=== PATIENT | male | born 1940 | race Caucasian/White ===

== ENCOUNTER 2017-02-12 20:05 | Inpatient (IN) | payer MEDICARE, BC ==
[~2017-02-12] VITALS: Ht 167.6 cm; Wt 94.0 kg
[~2017-02-12 20:05] MED LIST: AMBI10TA PO; CLON.1T TOP; CYCL-36 PO; DICL-86 PO; LISI10TA PO; OYST500T77 PO; PAXI20TA26 PO; PRAV80TA PO; TAB-TAB PO; TERA5CAP34 PO; VERA240CR PO; VITA400C70 PO; VITA500T10 PO; [UNRECOGNIZED DRUG - OTHER] PO
[2017-02-12 20:07] VITALS: BP 197/105; PULSE 115; RESP 16; TEMP 98.7; O2SAT 92
[2017-02-12 20:43] LABS: AUTOMATED NEUTROPHIL # 11.1 TH/MM3 (1.8-7.7); BASOPHIL # 0.1 TH/MM3 (0-0.2); BASOPHIL % 0.5 % (0.0-2.0); HEMATOCRIT 38.6 % (39.0-51.0); HEMO FLAGS DIFF FINAL; LYMPH % 4.5 % (9.0-44.0); LYMPHOCYTE # 0.5 TH/MM3 (1.0-4.8); MEAN CELL VOLUME 95.4 FL (80.0-100.0); MEAN CORPUSCULAR HEMOGLOBIN 32.5 PG (27.0-34.0); MONO % 4.2 % (0.0-8.0); NEUT % 90.8 % (16.0-70.0); PLATELET COUNT 243 TH/MM3 (150-450); RED BLOOD COUNT 4.04 MIL/MM3 (4.50-5.90); RED CELL DISTRIBUTION WIDTH 13.2 % (11.6-17.2); WHITE BLOOD COUNT 12.2 TH/MM3 (4.0-11.0)
[2017-02-12 20:45] LABS: BLOOD, URINE SMALL (NEG); COMMENT (UR) CULT NOT INDICATED; CULTURE IF INDICATED CULT NOT INDICATED; GLUCOSE,URINE 150 mg/dL (NEG); KETONE, URINE 80 mg/dL (NEG); MUCUS URINE FEW /lpf (OCC); NITRITE,URINE NEG (NEG); PH, URINE 6.5 (5.0-8.5); SQUAMOUS EPITHELIAL CELL URINE <1 /hpf (0-5); URINE COLOR YELLOW (YELLW/STRAW)
--- NOTE | 2017-02-12 21:03 | PD ---
HPI Chief Complaint: Altered Mental Status Time Seen by Provider: 20:52 Travel History International Travel<30 days: No Contact w/Intl Traveler<30days: No Traveled to known affect area: No History of Present Illness HPI 76-year-old male presents to the emergency department with nausea and vomiting since last night. Patient's family states that they have been ill with flulike symptoms and think that he has contracted the flu as well. Family states that he has altered mental status and but has somewhat waxed & waned. Patient has chronic back pain and mild urinary incontinence however, patient and family state that the incontinence has been increased recently. Patient denies dysuria. Patient denies fever, chills, chest pain, cough, shortness of breath, abdominal pain. Patient and family deny any recent falls. Family states that he has not been able take his medication today because of his nausea and vomiting. State compliance with his medications. PFSH Social History Tobacco Use: No Allergies-Medications (Allergen,Severity, Reaction): Coded Allergies: No Known Allergies (Verified Allergy, Mild, 02/12/17) Reported Meds & Prescriptions Reported Meds & Active Scripts Active Reported Ranitidine (Ranitidine HCl) 150 Mg Tab 150 Mg PO DAILY Ambien (Zolpidem Tartrate) 10 Mg Tab 10 Mg PO HS PRN Atenolol 25 Mg Tab 25 Mg PO DAILY Lisinopril-Hctz 20-12.5 Mg Tab 1 Tab PO BID Tamsulosin (Tamsulosin HCl) 0.4 Mg Cap 0.4 Mg PO HS Shepherd (Hydrocodone-Acetaminophen) 7.5-325 mg Tab 1 Tab PO BID PRN Verapamil (Verapamil HCl) 120 Mg Tab 120 Mg PO BID Gabapentin 600 Mg Tab 600 Mg PO TID Pravastatin 40 Mg Tab 40 Mg PO DAILY Diclofenac Sodium DR (Diclofenac Sodium) 75 Mg Tabdr 75 Mg PO BID Flexeril (Cyclobenzaprine HCl) 10 Mg Tab 10 Mg PO DAILY Review of Systems Except as stated in HPI: all other systems reviewed are Neg Physical Exam Narrative GENERAL: Well-developed well-nourished in no apparent distress, shaking SKIN: Focused skin assessment warm/dry. HEAD: Atraumatic. Normocephalic. EYES: Pupils equal and round. No scleral icterus. No injection or drainage. ENT: No nasal bleeding or discharge. Mucous membranes pink and moist. NECK: Trachea midline. No JVD. CARDIOVASCULAR: Regular rate and rhythm. No murmur appreciated. RESPIRATORY: No accessory muscle use. Clear to auscultation. Breath sounds equal bilaterally. GASTROINTESTINAL: Abdomen soft, non-tender, nondistended. Hepatic and splenic margins not palpable. MUSCULOSKELETAL: No obvious deformities. No clubbing. No cyanosis. No edema. Homans sign negative bilaterally NEUROLOGICAL: Awake and alert. No obvious cranial nerve deficits. Motor grossly within normal limits. Normal speech. PSYCHIATRIC: Appropriate mood and affect; insight and judgment normal. Data Data Last Documented VS Vital Signs Date Time Temp Pulse Resp B/P (MAP) Pulse Ox O2 Delivery O2 Flow Rate FiO2 02/12/17 21:36 99 26 181/90 (120) 94 Nasal Cannula 2.00 02/12/17 20:07 98.7 Orders Orders Complete Blood Count With Diff (02/12/17 20:17) Urinalysis - C+S If Indicated (02/12/17 20:17) Sodium Chlorid 0.9% 500 Ml Inj (Ns 500 M (02/12/17 21:15) Ct Brain W/O Iv Contrast(Rout) (02/12/17 ) Chest, Single Ap (02/12/17 ) Potassium Chloride (Kcl) (02/13/17 09:00) Electrocardiogram (02/12/17 ) Drug Screen, Random Urine (02/12/17 21:28) Beta Hydroxybutyrate (Acetone) (02/12/17 21:28) Verapamil (Isoptin) (02/12/17 21:45) Lisinopril (Prinivil) (02/12/17 21:45) Comprehensive Metabolic Panel (02/12/17 20:34) Haloperidol Inj (Haldol Inj) (02/12/17 23:00) Risperidone (Risperdal) (02/12/17 23:15) Admit Order (Ed Use Only) (02/12/17 23:08) Labs Laboratory Tests Test 02/12/17 20:30 02/12/17 20:34 Urine Color YELLOW Urine Turbidity CLEAR Urine pH 6.5 Urine Specific [place] 1.017 Urine Protein TRACE mg/dL Urine Glucose (UA) 150 mg/dL Urine Ketones 80 mg/dL Urine Occult Blood SMALL Urine Nitrite NEG Urine Bilirubin NEG Urine Urobilinogen LESS THAN 2.0 MG/DL Urine Leukocyte Esterase NEG Urine RBC 5 /hpf Urine WBC 1 /hpf Urine Squamous Epithelial Cells <1 /hpf Urine Mucus FEW /lpf Microscopic Urinalysis Comment CULT NOT INDICATED Urine Opiates Screen NEG Urine Barbiturates Screen NEG Urine Amphetamines Screen NEG Urine Benzodiazepines Screen NEG Urine Cocaine Screen NEG Urine Cannabinoids Screen NEG White Blood Count 12.2 TH/MM3 Red Blood Count 4.04 MIL/MM3 Hemoglobin 13.1 GM/DL Hematocrit 38.6 % Mean Corpuscular Volume 95.4 FL Mean Corpuscular Hemoglobin 32.5 PG Mean Corpuscular Hemoglobin Concent 34.0 % Red Cell Distribution Width 13.2 % Platelet Count 243 TH/MM3 Mean Platelet Volume 8.1 FL Neutrophils (%) (Auto) 90.8 % Lymphocytes (%) (Auto) 4.5 % Monocytes (%) (Auto) 4.2 % Eosinophils (%) (Auto) 0.0 % Basophils (%) (Auto) 0.5 % Neutrophils # (Auto) 11.1 TH/MM3 Lymphocytes # (Auto) 0.5 TH/MM3 Monocytes # (Auto) 0.5 TH/MM3 Eosinophils # (Auto) 0.0 TH/MM3 Basophils # (Auto) 0.1 TH/MM3 CBC Comment DIFF FINAL Differential Comment Blood Urea Nitrogen 15 MG/DL Creatinine 1.24 MG/DL Random Glucose 179 MG/DL Total Protein 7.8 GM/DL Albumin 4.2 GM/DL Calcium Level 9.0 MG/DL Alkaline Phosphatase 70 U/L Aspartate Amino Transf (AST/SGOT) 20 U/L Alanine Aminotransferase (ALT/SGPT) 25 U/L Total Bilirubin 1.0 MG/DL Sodium Level 136 MEQ/L Potassium Level 2.9 MEQ/L Chloride Level 99 MEQ/L Carbon Dioxide Level 27.4 MEQ/L Anion Gap 10 MEQ/L Estimat Glomerular Filtration Rate 57 ML/MIN B-Hydroxybutyrate 0.76 MMOL/L [facility] Medical Decision Making Medical Screen Exam Complete: Yes Emergency Medical Condition: Yes Differential Diagnosis Urinary tract infection versus altered mental status versus Narrative Course 76-year-old male presents to the emergency department with nausea and vomiting since last night. Patient's family states that they have been ill with flulike symptoms and think that he has contracted the flu as well. Family states that he has altered mental status and but has somewhat waxed & waned. Patient has chronic back pain and mild urinary incontinence however, patient and family state that the incontinence has been increased recently. Patient denies dysuria. Patient denies fever, chills, chest pain, cough, shortness of breath, abdominal pain. Patient and family deny any recent falls. Family states that he has not been able take his medication today because of his nausea and vomiting. State compliance with his medications. States he has been taking opiate pain medication for approximately 1 year but does not take them regularly. Vital signs- tachycardia with high blood pressure. Note that patient had not taken his BP medication today. Administered verapamil 120 and lisinopril 20. Laboratory Tests Test 02/12/17 20:30 02/12/17 20:34 Urine Color YELLOW Urine Turbidity CLEAR Urine pH 6.5 Urine Specific [place] 1.017 Urine Protein TRACE mg/dL Urine Glucose (UA) 150 mg/dL Urine Ketones 80 mg/dL Urine Occult Blood SMALL Urine Nitrite NEG Urine Bilirubin NEG Urine Urobilinogen LESS THAN 2.0 MG/DL Urine Leukocyte Esterase NEG Urine RBC 5 /hpf Urine WBC 1 /hpf Urine Squamous Epithelial Cells <1 /hpf Urine Mucus FEW /lpf Microscopic Urinalysis Comment CULT NOT INDICATED Urine Opiates Screen NEG Urine Barbiturates Screen NEG Urine Amphetamines Screen NEG Urine Benzodiazepines Screen NEG Urine Cocaine Screen NEG Urine Cannabinoids Screen NEG White Blood Count 12.2 TH/MM3 Red Blood Count 4.04 MIL/MM3 Hemoglobin 13.1 GM/DL Hematocrit 38.6 % Mean Corpuscular Volume 95.4 FL Mean Corpuscular Hemoglobin 32.5 PG Mean Corpuscular Hemoglobin Concent 34.0 % Red Cell Distribution Width 13.2 % Platelet Count 243 TH/MM3 Mean Platelet Volume 8.1 FL Neutrophils (%) (Auto) 90.8 % Lymphocytes (%) (Auto) 4.5 % Monocytes (%) (Auto) 4.2 % Eosinophils (%) (Auto) 0.0 % Basophils (%) (Auto) 0.5 % Neutrophils # (Auto) 11.1 TH/MM3 Lymphocytes # (Auto) 0.5 TH/MM3 Monocytes # (Auto) 0.5 TH/MM3 Eosinophils # (Auto) 0.0 TH/MM3 Basophils # (Auto) 0.1 TH/MM3 CBC Comment DIFF FINAL Differential Comment Blood Urea Nitrogen 15 MG/DL Creatinine 1.24 MG/DL Random Glucose 179 MG/DL Total Protein 7.8 GM/DL Albumin 4.2 GM/DL Calcium Level 9.0 MG/DL Alkaline Phosphatase 70 U/L Aspartate Amino Transf (AST/SGOT) 20 U/L Alanine Aminotransferase (ALT/SGPT) 25 U/L Total Bilirubin 1.0 MG/DL Sodium Level 136 MEQ/L Potassium Level 2.9 MEQ/L Chloride Level 99 MEQ/L Carbon Dioxide Level 27.4 MEQ/L Anion Gap 10 MEQ/L Estimat Glomerular Filtration Rate 57 ML/MIN B-Hydroxybutyrate 0.76 MMOL/L Last Impressions Head CT 02/12/17 0000 Signed Impressions: Service Date/Time: Sunday, February 12, 2017 21:53 - CONCLUSION: 1. No acute intracranial abnormalities. Ricky Morrow MD Chest X-Ray 02/12/17 0000 Signed Impressions: Service Date/Time: Sunday, February 12, 2017 21:23 - CONCLUSION: No acute disease. Ricky Morrow MD Hypokalemia - 2.9 Patient given 40 mg KCl. Fluid challenge administered. Patient will be admitted for obs for leukocytosis, hypokalemia, AMS. Thanks to Dr. Watters for accepting this patient. Diagnosis Primary Impression: Hypokalemia Additional Impression: Altered mental status Qualified Codes: R41.0 - Disorientation, unspecified Admitting Information Admitting Physician Requests: Observation Scripts Paroxetine (Paxil) 10 Mg Tab 5 MG PO DAILY for Depression Control, #30 TAB 0 Refills Prov: Lynnette Ibarra PA-C 02/13/17 Condition: Stable Miesha Hirsch Feb 12, 2017 21:03
[2017-02-12 21:10] LABS: ANION GAP 10 MEQ/L (5-15); BICARBONATE 27.4 MEQ/L (21.0-32.0); BLOOD UREA NITROGEN 15 MG/DL (7-18); CHLORIDE 99 MEQ/L (98-107); GLOMERULAR FILTRATION RATE 57 ML/MIN (>89); SODIUM (NA) 136 MEQ/L (136-145)
[2017-02-12 21:14] LABS: POTASSIUM 2.9 MEQ/L (3.5-5.1)
[2017-02-12] MEDS ORDERED: SODIUM CHLORID 0.9% 500 ML INJ 500 ML IV ONE (21:15)
[2017-02-12] MEDS ORDERED: GABA600T PO (21:24)
[2017-02-12] MEDS ORDERED: VERA120T3 PO (21:24)
[2017-02-12] MEDS ORDERED: PRAV40TA2 PO (21:24)
[2017-02-12] MEDS ORDERED: ATEN25TA PO (21:24)
[2017-02-12] MEDS ORDERED: AMBI10TA PO (21:24)
[2017-02-12] MEDS ORDERED: DICL75TA PO (21:24)
[2017-02-12] MEDS ORDERED: TAMS0.4C4 PO (21:24)
[2017-02-12] MEDS ORDERED: HYDR-3288 PO (21:24)
[2017-02-12] MEDS ORDERED: LISI20TA PO (21:24)
[2017-02-12] MEDS ORDERED: CYCL10TA PO (21:24)
[2017-02-12] MEDS ORDERED: RANI150T PO (21:24)
[2017-02-12 21:36] VITALS: BP 181/90; PULSE 99; RESP 26; O2SAT 94
[2017-02-12] MEDS ORDERED: LISINOPRIL 20 MG TAB PO ONE (21:45)
[2017-02-12] MEDS ORDERED: VERAPAMIL HCL 120 MG TAB PO ONE (21:45)
[2017-02-12 21:53] LABS: ALKALINE PHOSPHATASE 70 U/L (45-117); ALT (GPT) 25 U/L (12-78); AST (GOT) 20 U/L (15-37)
--- NOTE | 2017-02-12 22:03 | RADRPT ---
EXAM DATE/TIME: 02/12/2017 21:23 [facility] COMPARISON: No previous studies available for comparison. INDICATIONS : Vomiting for 2 weeks. MEDICAL HISTORY : Chronic obstructive pulmonary disease. SURGICAL HISTORY : None. ENCOUNTER: Initial ACUITY: 2 weeks PAIN SCORE: 0/10 LOCATION: Bilateral chest FINDINGS: A single view of the chest demonstrates the lungs to be symmetrically aerated without evidence of mas s, infiltrate or effusion. The cardiomediastinal contours are unremarkable. Osseous structures are intact. CONCLUSION: No acute disease. Ricky Morrow MD on February 12, 2017 at 22:00 Board Certified Radiologist. This report was verified electronically.
--- NOTE | 2017-02-12 22:20 | RADRPT ---
EXAM DATE/TIME: 02/12/2017 21:53 [facility] COMPARISON: No previous studies available for comparison. INDICATIONS : Altered mental status. RADIATION DOSE: 34.35 CTDIvol (mGy) MEDICAL HISTORY : Deep venous thrombosis. Hypertension. Diabetes mellitus type 2.Pulmonary embolus SURGICAL HISTORY : None. ENCOUNTER: Initial ACUITY: 1 day PAIN SCALE: 0/10 LOCATION: cranial TECHNIQUE: Multiple contiguous axial images were obtained of the head. Using automated exposure control and adj ustment of the mA and/or kV according to patient size, radiation dose was kept as low as reasonably a chievable to obtain optimal diagnostic quality images. DICOM format image data is available electro nically for review and comparison. FINDINGS: CEREBRUM: The ventricles are normal for age. No evidence of midline shift, mass lesion, hemorrhage or acute in farction. No extra-axial fluid collections are seen. POSTERIOR FOSSA: The cerebellum and brainstem are intact. The 4th ventricle is midline. The cerebellopontine angle i s unremarkable. EXTRACRANIAL: The visualized portion of the orbits is intact. SKULL: The calvaria is intact. No evidence of skull fracture. CONCLUSION: 1. No acute intracranial abnormalities. Ricky Morrow MD on February 12, 2017 at 22:16 Board Certified Radiologist. This report was verified electronically.
[2017-02-12] MEDS ORDERED: HALOPERIDOL LACTATE 5 MG/ML AMP IM ONE (23:00)
[2017-02-12] MEDS ORDERED: GADODIAMIDE PF 287 MG/ML 20 ML VIAL (for RAD MRI) IVCONTRAST ONE (23:12)
--- NOTE | 2017-02-12 23:14 | HHI.HP ---
HPI Service [facility] Primary Care Physician Davidson Hughes, DO Admission Diagnosis AMD, leukocytosis, hypokalemia Diagnoses: (1) Encephalopathy Diagnosis: Principal (2) HTN (hypertension) Diagnosis: Principal (3) Dehydration Diagnosis: Principal (4) Leukocytosis Diagnosis: Principal (5) Hyperglycemia Diagnosis: Principal (6) Hypokalemia Diagnosis: Principal Travel History International Travel<30 Days: No Contact w/Intl Traveler <30 Da: No Traveled to Known Affected Are: No History of Present Illness This is a 76-year-old male with PMH of HTN, Chronic Back pain, Depression, h/o DVT s/p IVC and Diet Controlled DM who was brought to the ER by Daughter secondary to AMS. Per Daughter, pt lives in an [place] on their property and is highly functional at baseline-walks, talks, drives. Today, pt had few episodes of nausea/vomiting and mild headache, but no complaints of abdominal pain, Daughter had flu-like symptoms and thought pt was having same, however mental status declined throughout the day. Also states BP has been difficult to control and has required several different BP regimens, however home BP has been 130's systolic until today when BP noted to be elevated. On arrival, BP 197/105, HR 115. WBC 12.2. K+ 2.9, s/p replacement in ER. GFR 57. UA with no UTI. Beta hydroxy 0.76. Urine Drug Screen negative. CT Head with no acute intracranial abnormalities. CXR with no acute finding. While in ER, pt w/ episode of significant agitation requiring Haldol and Risperidone, currently calm. Review of Systems Except as stated in HPI: all other systems reviewed are Neg ROS: Unable to obtain secondary to AMS. Past Family Social History Past Medical History PMH: HTN, Chronic Back pain, Depression, h/o DVT s/p IVC and Diet Controlled DM Past Surgical History PAST SURGICAL HISTORY: Left Knee Replacement, IVC Filter Allergies: Coded Allergies: No Known Allergies (Verified Allergy, Mild, 02/12/17) Family History PAST FAMILY HISTORY: Reviewed. No h/o DM or CAD Social History PAST SOCIAL HISTORY: Occasional alcohol. Negative for tobacco or drugs. Physical Exam Vital Signs Vital Signs Date Time Temp Pulse Resp B/P (MAP) Pulse Ox O2 Delivery O2 Flow Rate FiO2 02/12/17 21:36 99 26 181/90 (120) 94 Nasal Cannula 2.00 02/12/17 20:07 98.7 115 16 197/105 (135) 92 Room Air Physical Exam PE: GENERAL: Elderly white male in no acute distress, mildly agitated/fidgety, constantly readjusting positions, finally resting. Daughter at bedside. HEENT: PERRLA, EOMI. No scleral icterus or conjunctival pallor. No lid lag or facial droop. CARDIOVASCULAR: Regular rate and rhythm. No obvious murmurs to auscultation. No chest tenderness to palpation. RESPIRATORY: No obvious rhonchi or wheezing. Clear to auscultation. Breath sounds equal bilaterally. GASTROINTESTINAL: Abdomen soft, non-tender, nondistended. BS normal. MUSCULOSKELETAL: Extremities without clubbing, cyanosis, or edema. No obvious deformities. NEUROLOGICAL: Awake, alert. No focal neurologic deficits. Moving both upper and lower extremities spontaneously. Laboratory Laboratory Tests Test 02/12/17 20:30 02/12/17 20:34 Urine Color YELLOW Urine Turbidity CLEAR Urine pH 6.5 Urine Specific [place] 1.017 Urine Protein TRACE Urine Glucose (UA) 150 Urine Ketones 80 Urine Occult Blood SMALL Urine Nitrite NEG Urine Bilirubin NEG Urine Urobilinogen LESS THAN 2.0 Urine Leukocyte Esterase NEG Urine RBC 5 Urine WBC 1 Urine Squamous Epithelial Cells <1 Urine Mucus FEW Microscopic Urinalysis Comment CULT NOT INDICATED Urine Opiates Screen NEG Urine Barbiturates Screen NEG Urine Amphetamines Screen NEG Urine Benzodiazepines Screen NEG Urine Cocaine Screen NEG Urine Cannabinoids Screen NEG White Blood Count 12.2 Red Blood Count 4.04 Hemoglobin 13.1 Hematocrit 38.6 Mean Corpuscular Volume 95.4 Mean Corpuscular Hemoglobin 32.5 Mean Corpuscular Hemoglobin Concent 34.0 Red Cell Distribution Width 13.2 Platelet Count 243 Mean Platelet Volume 8.1 Neutrophils (%) (Auto) 90.8 Lymphocytes (%) (Auto) 4.5 Monocytes (%) (Auto) 4.2 Eosinophils (%) (Auto) 0.0 Basophils (%) (Auto) 0.5 Neutrophils # (Auto) 11.1 Lymphocytes # (Auto) 0.5 Monocytes # (Auto) 0.5 Eosinophils # (Auto) 0.0 Basophils # (Auto) 0.1 CBC Comment DIFF FINAL Differential Comment Blood Urea Nitrogen 15 Creatinine 1.24 Random Glucose 179 Total Protein 7.8 Albumin 4.2 Calcium Level 9.0 Alkaline Phosphatase 70 Aspartate Amino Transf (AST/SGOT) 20 Alanine Aminotransferase (ALT/SGPT) 25 Total Bilirubin 1.0 Sodium Level 136 Potassium Level 2.9 Chloride Level 99 Carbon Dioxide Level 27.4 Anion Gap 10 Estimat Glomerular Filtration Rate 57 B-Hydroxybutyrate 0.76 Result Diagram: 02/12/17203302/12/172033 Caprini VTE Risk Assessment Caprini VTE Risk Assessment: No/Low Risk (score <= 1) Caprini Risk Assessment Model Point Value = 1 Point Value = 2 Point Value = 3 Point Value = 5 Age 41-60 Minor surgery BMI > 25 kg/m2 Swollen legs Varicose veins or History of unexplained or recurrent spontaneous Oral contraceptives or hormone replacement Sepsis (< 1 month) Serious lung disease, including pneumonia (< 1 month) Abnormal pulmonary function Acute myocardial infarction Congestive heart failure (< 1 month) History of inflammatory bowel disease Medical patient at bed rest Age 61-74 Arthroscopic surgery Major open surgery (> 45 min) Laparoscopic surgery (> 45 min) Malignancy Confined to bed (> 72 hours) Immobilizing plaster cast Central venous access Age >= 75 History of VTE Family history of VTE Factor V Leiden Prothrombin [id number] Lupus anticoagulant Anticardiolipin antibodies Elevated serum homocysteine Heparin-induced thrombocytopenia Other congenital or acquired thrombophilia Stroke (< 1 month) Elective arthroplasty Hip, pelvis, or leg fracture Acute spinal cord injury (< 1 month) Prophylaxis Regimen Total Risk Factor Score Risk Level Prophylaxis Regimen 0-1 Low Early ambulation 2 Moderate Order ONE of the following: *Sequential Compression Device (SCD) *Heparin 5000 units SQ BID 3-4 Higher Order ONE of the following medications: *Heparin 5000 units SQ TID *Enoxaparin/Lovenox 40 mg SQ daily (WT < 150 kg, CrCl > 30 mL/min) *Enoxaparin/Lovenox 30 mg SQ daily (WT < 150 kg, CrCl > 10-29 mL/min) *Enoxaparin/Lovenox 30 mg SQ BID (WT < 150 kg, CrCl > 30 mL/min) AND/OR *Sequential Compression Device (SCD) 5 or more Highest Order ONE of the following medications: *Heparin 5000 units SQ TID (Preferred with Epidurals) *Enoxaparin/Lovenox 40 mg SQ daily (WT < 150 kg, CrCl > 30 mL/min) *Enoxaparin/Lovenox 30 mg SQ daily (WT < 150 kg, CrCl > 10-29 mL/min) *Enoxaparin/Lovenox 30 mg SQ BID (WT < 150 kg, CrCl > 30 mL/min) AND *Sequential Compression Device (SCD) Assessment and Plan Problem List: (1) Encephalopathy ICD Code: G93.40 - Encephalopathy, unspecified (2) HTN (hypertension) ICD Code: I10 - Essential (primary) hypertension (3) Dehydration ICD Code: E86.0 - Dehydration (4) Hyperglycemia ICD Code: R73.9 - Hyperglycemia, unspecified (5) Leukocytosis ICD Code: D72.829 - Elevated white blood cell count, unspecified (6) Hypokalemia ICD Code: E87.6 - Hypokalemia Status: Acute Assessment and Plan A/P: 1. Encephalopathy: Unclear etiology. Highly functional at baseline per Daughter, now confused/agitated. CT Head w/ no acute findings, images reviewed by me. No obvious source of infection, CXR w/ no acute findings, U/a negative. Possibly related to uncontrolled HTN? BP 190's systolic on arrival, monitor BP. Urine Drug Screen negative. 2. Leukocytosis: WBC 12.2. Afebrile. CXR negative as above, images reviewed by me. U/a w/ no UTI. ? gastroenteritis, Daughter reports episodes of nausea/ vomiting and decreased PO intake. IVF for hydration, repeat labs in am. 3. Hyperglycemia: BS 179. Check Hgb A1c. Sliding scale w/ Accu-Cheks. 4. Hypokalemia: K+ 2.9, s/p replacement in ER, will recheck and replace as needed. 5. Dehydration: GFR 57, IVF for hydration, repeat labs in am. 6. DVT Prophylaxis: SCD/Teds 7. Social work for d/c planning as needed. 8. Case discussed w/ ER physician at length. Janeth Mishra MD Feb 12, 2017 23:14
[2017-02-12] MEDS ORDERED: ACETAMINOPHEN 325 MG TAB PO PRN (23:15)
[2017-02-12] MEDS ORDERED: MAGNESIUM HYDROXIDE SUSP 30 ML CUP PO PRN (23:15)
[2017-02-12] MEDS ORDERED: risperiDONE 1 MG TAB PO ONE (23:15)
[2017-02-12] MEDS ORDERED: BISACODYL 10 MG SUPP RECTAL PRN (23:15)
[2017-02-12] MEDS ORDERED: ONDANSETRON HCL 4 MG/2 ML VIAL IVP PRN (23:15)
[2017-02-12] MEDS ORDERED: LACTULOSE SYRUP 20 GM/30 ML CUP PO PRN (23:15)
[2017-02-12] MEDS ORDERED: METOPROLOL TARTRATE 5 MG/5 ML VIAL IV PUSH ONE (23:15)
[2017-02-12] MEDS ORDERED: SODIUM CHLORIDE 0.9% FLUSH 10 ML FLUSH IV FLUSH PRN (23:15)
[2017-02-12] MEDS ORDERED: SENNOSIDES 8.6 MG TAB PO PRN (23:15)
[2017-02-12 23:30] VITALS: BP 187/86; PULSE 96; RESP 16; O2SAT 96
[2017-02-12] MEDS ORDERED: POTASSIUM CHLORIDE 20 MEQ CONTROLLED RELEASE TAB PO ONE (23:30)
[2017-02-12] MEDS: SODIUM CHLOR 0.9% 1000 ML INJ 1,000 ML IV SCH (23:33)
[2017-02-13] VITALS (10 sets, daily range): BP systolic 149–190; BP diastolic 73–87; PULSE 59–85; RESP 15–28; TEMP 96.1–101.1; O2SAT 94–96
[2017-02-13] MEDS ORDERED: hydrALAZINE HCL 20 MG/ML VIAL IV PUSH ONE (00:30)
[2017-02-13] MEDS ORDERED: HALOPERIDOL LACTATE 5 MG/ML AMP IM ONE (02:00)
[2017-02-13] MEDS ORDERED: Vancomycin Consult Pharmacy 1 EA OTHER SCH (02:15)
[2017-02-13] MEDS ORDERED: VANCOMYCIN INJ 2,000 MG in SODIUM CHLORID 0.9% 500 ML INJ 500 ML IV ONE (03:00)
[2017-02-13] MEDS ORDERED: diphenhydrAMINE HCL 50 MG/ML VIAL IV PUSH ONE (03:30)
[2017-02-13] MEDS ORDERED: HALOPERIDOL LACTATE 5 MG/ML AMP IV PUSH ONE (03:30)
[2017-02-13] MEDS: AMPICILLIN INJ 2,000 MG in SODIUM CHLORIDE 0.9% INJ 100 ML IV SCH ×4 (03:56→23:00)
[2017-02-13] MEDS: cefTRIAXone INJ 2,000 MG in SODIUM CHLORIDE 0.9% INJ 100 ML IV SCH ×2 (04:25→18:19)
[2017-02-13 07:18] LABS: AUTOMATED NEUTROPHIL # 8.9 TH/MM3 (1.8-7.7); BASOPHIL % 0.3 % (0.0-2.0); HEMATOCRIT 35.4 % (39.0-51.0); HEMO FLAGS DIFF FINAL; LYMPH % 6.1 % (9.0-44.0); LYMPHOCYTE # 0.6 TH/MM3 (1.0-4.8); MEAN CELL VOLUME 96.2 FL (80.0-100.0); MEAN CORPUSCULAR HEMOGLOBIN 33.2 PG (27.0-34.0); MEAN CORPUSCULAR HGB CONC 34.6 % (32.0-36.0); MONO % 9.2 % (0.0-8.0); NEUT % 84.4 % (16.0-70.0); PLATELET COUNT 201 TH/MM3 (150-450); RED BLOOD COUNT 3.68 MIL/MM3 (4.50-5.90); RED CELL DISTRIBUTION WIDTH 13.3 % (11.6-17.2); WHITE BLOOD COUNT 10.5 TH/MM3 (4.0-11.0)
[2017-02-13] MEDS ORDERED: DEXTROSE 50% IN WATER 50 ML VIAL(D50) IV PUSH PRN (07:45)
[2017-02-13] MEDS ORDERED: GLUCAGON 1 MG/ML VIAL OTHER PRN (07:45)
[2017-02-13 07:53] LABS: ALKALINE PHOSPHATASE 59 U/L (45-117); ALT (GPT) 30 U/L (12-78); ANION GAP 10 MEQ/L (5-15); AST (GOT) 62 U/L (15-37); BICARBONATE 26.6 MEQ/L (21.0-32.0); BLOOD UREA NITROGEN 18 MG/DL (7-18); CHLORIDE 100 MEQ/L (98-107); GLOMERULAR FILTRATION RATE 58 ML/MIN (>89); SODIUM (NA) 137 MEQ/L (136-145); TOTAL BILIRUBIN ADULT 0.7 MG/DL (0.2-1.0)
[2017-02-13] MEDS ORDERED: DOCUSATE SODIUM 50 MG/SENNA 8.6 MG TAB PO SCH (09:00)
[2017-02-13] MEDS ORDERED: POTASSIUM CHLORIDE 20 MEQ CONTROLLED RELEASE TAB PO SCH (09:00)
[2017-02-13] MEDS: SODIUM CHLORIDE 0.9% FLUSH 10 ML FLUSH IV FLUSH SCH ×2 (09:00→20:26)
[2017-02-13] MEDS: SODIUM CHLOR 0.9% 1000 ML INJ 1,000 ML IV SCH ×2 (09:06→20:30)
[2017-02-13] MEDS: ATENOLOL 25 MG TAB PO SCH (09:19)
[2017-02-13] MEDS: INSULIN ASPART SUPPLEMENTAL SCALE SQ SCH ×4 (09:19→20:29)
[2017-02-13] MEDS: FAMOTIDINE 20 MG TAB PO SCH (09:19)
[2017-02-13] MEDS: VERAPAMIL HCL 120 MG TAB PO SCH ×2 (09:26→20:25)
--- NOTE | 2017-02-13 11:33 | HHI.PR ---
Subjective Remarks Follow up mental status change/respiratory distress 02/13/17-patient seen and examined, alert and oriented to self, daughter however appears somewhat confused even though patient talkative. Some shortness of breath and respiratory distress. Afebrile. Daughter by the bedside Objective Vitals Vital Signs Date Time Temp Pulse Resp B/P (MAP) Pulse Ox O2 Delivery O2 Flow Rate FiO2 02/13/17 08:52 98.3 74 24 173/85 (114) 94 02/13/17 04:55 154/76 (102) 02/13/17 04:45 82 166/73 (104) 02/13/17 03:50 98.9 80 18 178/80 (112) 95 02/13/17 03:43 02/13/17 01:25 101.1 85 15 149/87 (107) 94 Nasal Cannula 2.00 02/13/17 00:38 78 16 190/83 (118) 94 Nasal Cannula 2.00 02/12/17 23:30 96 16 187/86 (119) 96 Nasal Cannula 2.00 02/12/17 21:36 99 26 181/90 (120) 94 Nasal Cannula 2.00 02/12/17 20:07 98.7 115 16 197/105 (135) 92 Room Air I/O 02/12/17 02/12/17 02/12/17 02/13/17 02/13/17 02/13/17 07:00 15:00 23:00 07:00 15:00 23:00 Intake Total 500 ml 200 ml Balance 500 ml 200 ml Intake IV Total 500 ml 200 ml # Voids 1 Result Diagram: 02/13/17 0700 02/13/17 0700 Imaging Last Impressions Head CT 02/12/17 0000 Signed Impressions: Service Date/Time: Sunday, February 12, 2017 21:53 - CONCLUSION: 1. No acute intracranial abnormalities. Ricky Morrow MD Chest X-Ray 02/12/17 0000 Signed Impressions: Service Date/Time: Sunday, February 12, 2017 21:23 - CONCLUSION: No acute disease. Ricky Morrow MD Objective Remarks GENERAL: NAD SKIN: Warm and dry. HEAD: Normocephalic. EYES: No scleral icterus. No injection or drainage. NECK: Supple, trachea midline. No JVD or lymphadenopathy. CARDIOVASCULAR: Regular rate and rhythm without murmurs, gallops, or rubs. RESPIRATORY: Breath sounds decrease bilaterally. No accessory muscle use.+exp wheezings GASTROINTESTINAL: Abdomen soft, non-tender, nondistended. MUSCULOSKELETAL: No cyanosis, or edema. NEURO: CN II-XII intact, no slurred speech BACK: Nontender without obvious deformity. No CVA tenderness. A/P Problem List: (1) Encephalopathy ICD Code: G93.40 - Encephalopathy, unspecified (2) HTN (hypertension) ICD Code: I10 - Essential (primary) hypertension (3) Dehydration ICD Code: E86.0 - Dehydration (4) Hyperglycemia ICD Code: R73.9 - Hyperglycemia, unspecified (5) Leukocytosis ICD Code: D72.829 - Elevated white blood cell count, unspecified (6) Hypokalemia ICD Code: E87.6 - Hypokalemia Status: Acute (7) Respiratory distress ICD Code: R06.03 - Acute respiratory distress Assessment and Plan 76 yrs old man with 1. Encephalopathy: Improving however Unclear etiology. CT Head w/ no acute findings. No obvious source of infection, CXR w/ no acute findings, U/a negative. Urine Drug Screen negative. LP pending. Will check EEG, Brain MRI and consult Neurology. Continue with current prophylactic antibiotics including ampicillin, Rocephin and vancomycin pending LP 2. Respiratory distress: R/O PE with CTA pulmonary. Start Duo Neb schedule and PRN, Prednisone 40mg Daily 3. Leukocytosis: Resolved 4. Hyperglycemia: Hgb A1c pending. Sliding scale w/ Accu-Cheks. 5. Hypokalemia: K+ 2.9, s/p replacement in ER, will recheck and replace as needed. 6. Hypertension: Labile BP; Currently on verapamil 120 mg BID, Atenolol 25mg daily 6. DVT Prophylaxis: SCD/Teds 1720hours ADDENDUM: CT-PA shows few small scattered right sided pulmonary emboli. Called IR regarding LP not being done, discussed with radiology, reports only stat procedures were done today and IR team no longer available unless called in. Discussed with Dr. Cerna. Recommends IV heparin drip, hematology consult, transfer to floor. Patient's daughter concerned patient may become agitated again tonight, requests Haldol ordered as needed for agitation. Bruce Cerna MD Feb 13, 2017 11:33 Lynnette Ibarra PA-C Feb 13, 2017 17:22
[2017-02-13] MEDS ORDERED: POTASSIUM CHLORIDE 20 MEQ CONTROLLED RELEASE TAB PO ONE (12:00)
[2017-02-13] MEDS ORDERED: RESP: ALBUTEROL 2.5 MG/IPRATROPIUM 0.5 MG NEB (SCH) NEB ONE (12:00)
[2017-02-13] MEDS ORDERED: IOHEXOL 350 MG/ML 10 ML VIAL (for RAD DIAG) IVCONTRAST ONE (12:07)
--- NOTE | 2017-02-13 12:20 | RADRPT ---
EXAM DATE/TIME: 02/13/2017 11:58 [facility] COMPARISON: No previous studies available for comparison. INDICATIONS : Shortness of breath today. IV CONTRAST: 80 cc Omnipaque 350 (iohexol) IV RADIATION DOSE: 23.86 CTDIvol (mGy) MEDICAL HISTORY : Hypertension. deep vein thrombosis, diabetes SURGICAL HISTORY : None. ENCOUNTER: Initial ACUITY: 1 day PAIN SCALE: 0/10 LOCATION: Bilateral chest TECHNIQUE: Volumetric scanning of the chest was performed using a pulmonary embolism protocol MIP images were re constructed. Using automated exposure control and adjustment of the mA and/or kV according to patien t size, radiation dose was kept as low as reasonably achievable to obtain optimal diagnostic quality images. DICOM format image data is available electronically for review and comparison. Follow-up recommendations for detected pulmonary nodules are based at a minimum on nodule size and pa tient risk factors according to Fleischner Society Guidelines. FINDINGS: PULMONARY ARTERIES: A few small filling defects are seen within right middle lobe and right lower lobe branches consisten t with pulmonary emboli. Left pulmonary arteries are relatively patent. LUNGS: There is no consolidation or pneumothorax . No concerning pulmonary nodule is visualized. PLEURAE: There is no pleural thickening or pleural effusion. MEDIASTINUM: There is good visualization of the great vessels of the middle mediastinum. No evidence of mediastin al or hilar adenopathy/mass. Cardiomegaly coronary artery calcifications. MUSCULOSKELETAL: Within normal limits for patient age. MISCELLANEOUS: The visualized upper abdominal organs demonstrate no acute abnormality. CONCLUSION: 1. Few small scattered right sided pulmonary emboli. 2. No infiltrate or mass. 3. Cardiomegaly coronary artery calcifications. Bruce Middleton MD on February 13, 2017 at 12:16 Board Certified Radiologist. This report was verified electronically.
--- NOTE | 2017-02-13 12:57 | RADRPT ---
EXAM DATE/TIME: 02/13/2017 12:22 [facility] COMPARISON: CT BRAIN W/O CONTRAST, February 12, 2017, 21:53. INDICATIONS : Meningitis. CONTRAST: 20 cc Omniscan (gadodiamide) IV MEDICAL HISTORY : Hypertension. Benign prostatic hyperplasia, (BPH) Diabetes mellitus type 2. SURGICAL HISTORY : Inguinal hernia repair. IVC Filter placement. Bilateral carpel tunnel release. ENCOUNTER: Initial ACUITY: 1 day PAIN SCORE: 0/10 LOCATION: cranial TECHNIQUE: Multiplanar, multisequence MRI of the brain was performed both prior to and following the administrat ion of paramagnetic contrast. FINDINGS: CEREBRUM: The ventricles are normal for age. No evidence of midline shift, mass lesion, hemorrhage or acute in farction. No extraaxial fluid collections are seen. The pituitary gland and suprasellar cistern are normal in configuration. WHITE MATTER: Prominent areas of high flair signal abnormalities are seen in the white matter. POSTERIOR FOSSA: The cerebellum and brainstem are intact. The 4th ventricle is midline. The cerebellopontine angle is unremarkable. The cerebellar tonsils are normal in position. DIFFUSION IMAGING: No focal areas of restricted diffusion are seen. No evidence of acute infarction. EXTRACRANIAL: The visualized portions of the orbits and paranasal sinuses are unremarkable. POST-CONTRAST: No abnormal areas of parenchymal or dural enhancement. No evidence of blood-brain barrier breakdown. CONCLUSION: 1. Chronic ischemic small vessel vasculopathy. 2. No acute infarction. Bruce Middleton MD on February 13, 2017 at 12:54 Board Certified Radiologist. This report was verified electronically.
[2017-02-13] MEDS: predniSONE 20 MG TAB PO SCH (13:07)
[2017-02-13] MEDS: RESP: ALBUTEROL 2.5 MG/IPRATROPIUM 0.5 MG NEB (SCH) NEB (13:19)
[2017-02-13 14:06] LABS: BLOOD GAS BASE EXCESS 1.3 mmol/L (-2-2); BLOOD GAS CARBOXYHEMOGLOBIN 1.2 % (0-4); BLOOD GAS HCO3 25 mmol/L (22-26); BLOOD GAS METHEMOGLOBIN 0.8 % (0-2); BLOOD GAS O2 HGB SATURATION 95 % (90-100); BLOOD GAS OXYGEN CONTENT 17.4 Vol % (12.0-20.0); BLOOD GAS PCO2 35 mmHg (38-42); BLOOD GAS PO2 83 mmHG (61-120); CRITICAL VALUE NO; DRAW SITE RT RADIAL; LITER FLOW 2 L/M; NUMBER OF ARTERIAL PUNCTURES 1; OXYGEN DEVICE NASAL CANNULA; STAT NO; ULNAR PULSE PRESENT
[2017-02-13] MEDS ORDERED: HEPARIN SODIUM - IV 10,000 UNITS/10 ML VIAL IV PUSH ONE (17:30)
[2017-02-13] MEDS ORDERED: LACTULOSE SYRUP 20 GM/30 ML CUP PO ONE (17:30)
[2017-02-13] MEDS ORDERED: MAGNESIUM SULFATE 1 GM PREMIX 100 ML IV ONE (18:00)
[2017-02-13] MEDS ORDERED: PAXI10TA8 PO (18:08)
[2017-02-13 18:58] LABS: APTT (PATIENT) 23.1 SEC (24.3-30.1); INTERNATIONAL NORMALIZED RATIO 1.2 RATIO; PROTHROMBIN TIME - PATIENT 11.9 SEC (9.8-11.6)
[2017-02-13] MEDS: HEPARIN-D5W 25,000 U/250 ML 250 ML IV PRN (19:23)
[2017-02-13 19:24] LABS: HEMATOCRIT 37.5 % (39.0-51.0); MEAN CORPUSCULAR HEMOGLOBIN 32.5 PG (27.0-34.0); MEAN CORPUSCULAR HGB CONC 33.1 % (32.0-36.0); PLATELET COUNT 204 TH/MM3 (150-450); RED BLOOD COUNT 3.83 MIL/MM3 (4.50-5.90); RED CELL DISTRIBUTION WIDTH 13.5 % (11.6-17.2); REVIEW FLAG FINAL; WHITE BLOOD COUNT 13.1 TH/MM3 (4.0-11.0)
[2017-02-13] MEDS: TAMSULOSIN HCL 0.4 MG CAP PO SCH (20:25)
[2017-02-14] VITALS (11 sets, daily range): BP systolic 146–203; BP diastolic 67–90; PULSE 56–78; RESP 19–22; TEMP 97.8–98.8; O2SAT 93–97
[2017-02-14] MEDS: AMPICILLIN INJ 2,000 MG in SODIUM CHLORIDE 0.9% INJ 100 ML IV SCH ×5 (02:50→21:20)
[2017-02-14] MEDS: cefTRIAXone INJ 2,000 MG in SODIUM CHLORIDE 0.9% INJ 100 ML IV SCH ×2 (03:37→17:09)
[2017-02-14 04:17] LABS: APTT (PATIENT) 104.9 SEC (24.3-30.1)
[2017-02-14] MEDS: VANCOMYCIN INJ 1,750 MG in SODIUM CHLORID 0.9% 500 ML INJ 500 ML IV SCH (04:55)
[2017-02-14] MEDS: INSULIN ASPART SUPPLEMENTAL SCALE SQ SCH ×4 (08:00→21:00)
[2017-02-14] MEDS: RESP: ALBUTEROL 2.5 MG/IPRATROPIUM 0.5 MG NEB (SCH) NEB ×3 (08:02→20:19)
[2017-02-14] MEDS: SODIUM CHLORIDE 0.9% FLUSH 10 ML FLUSH IV FLUSH SCH ×2 (09:00→21:21)
[2017-02-14 09:13] LABS: AUTOMATED NEUTROPHIL # 8.9 TH/MM3 (1.8-7.7); BASOPHIL % 0.2 % (0.0-2.0); HEMATOCRIT 36.6 % (39.0-51.0); HEMO FLAGS DIFF FINAL; LYMPH % 10.5 % (9.0-44.0); LYMPHOCYTE # 1.2 TH/MM3 (1.0-4.8); MEAN CELL VOLUME 96.4 FL (80.0-100.0); MEAN CORPUSCULAR HEMOGLOBIN 32.7 PG (27.0-34.0); MEAN CORPUSCULAR HGB CONC 33.9 % (32.0-36.0); MONO % 11.5 % (0.0-8.0); NEUT % 77.8 % (16.0-70.0); PLATELET COUNT 192 TH/MM3 (150-450); RED CELL DISTRIBUTION WIDTH 13.6 % (11.6-17.2); WHITE BLOOD COUNT 11.5 TH/MM3 (4.0-11.0)
[2017-02-14 09:18] LABS: APTT (PATIENT) 42.4 SEC (24.3-30.1)
[2017-02-14 09:28] LABS: BICARBONATE 27.2 MEQ/L (21.0-32.0); MAGNESIUM 2.4 MG/DL (1.5-2.5); POTASSIUM 3.2 MEQ/L (3.5-5.1)
--- NOTE | 2017-02-14 09:31 | HHI.PR ---
Subjective Remarks Patient in bed appears sob, he is also wheezing. No n/v/d/c. No fever or chills. Objective Vitals Vital Signs Date Time Temp Pulse Resp B/P (MAP) Pulse Ox O2 Delivery O2 Flow Rate FiO2 02/14/17 08:05 97 Nasal Cannula 2.00 02/14/17 04:12 56 02/14/17 04:00 98.6 63 22 150/70 (96) 97 02/14/17 00:00 Nasal Cannula 2.00 02/14/17 00:00 97.8 60 22 146/67 (93) 97 02/13/17 21:37 61 02/13/17 20:30 Nasal Cannula 2.00 02/13/17 20:00 97.8 59 22 159/84 (109) 96 02/13/17 16:57 96.1 59 28 155/87 (109) 94 Manual Cuff/Auscultation 02/13/17 13:43 97.4 59 24 177/86 (116) 96 02/13/17 13:20 Nasal Cannula 2.00 I/O 02/13/17 02/13/17 02/13/17 02/14/17 02/14/17 02/14/17 07:00 15:00 23:00 07:00 15:00 23:00 Intake Total 200 ml 100 ml 780 ml Balance 200 ml 100 ml 780 ml Intake Oral 480 ml IV Total 200 ml 100 ml 300 ml # Voids 1 2 # Bowel Movements 3 3 2 Result Diagram: 02/14/17 0845 02/13/17 [address] Angiography 02/13/17 0000 Signed Impressions: Service Date/Time: Monday, February 13, 2017 11:58 - CONCLUSION: 1. Few small scattered right sided pulmonary emboli. 2. No infiltrate or mass. 3. Cardiomegaly coronary artery calcifications. Bruce Middleton MD Brain MRI 02/13/17 0000 Signed Impressions: Service Date/Time: Monday, February 13, 2017 12:22 - CONCLUSION: 1. Chronic ischemic small vessel vasculopathy. 2. No acute infarction. Bruce Middleton MD Head CT 02/12/17 0000 Signed Impressions: Service Date/Time: Sunday, February 12, 2017 21:53 - CONCLUSION: 1. No acute intracranial abnormalities. Ricky Morrow MD Chest X-Ray 02/12/17 0000 Signed Impressions: Service Date/Time: Sunday, February 12, 2017 21:23 - CONCLUSION: No acute disease. Ricky Morrow MD Objective Remarks GENERAL: NAD CARDIOVASCULAR: Regular rate and rhythm without murmurs, gallops, or rubs. RESPIRATORY: Breath sounds decrease bilaterally. No accessory muscle use.+exp wheezings GASTROINTESTINAL: Abdomen soft, non-tender, nondistended. MUSCULOSKELETAL: No cyanosis, or edema. NEURO: CN II-XII intact, no slurred speech BACK: Nontender without obvious deformity. No CVA tenderness. A/P Problem List: (1) Encephalopathy ICD Code: G93.40 - Encephalopathy, unspecified Status: Acute (2) HTN (hypertension) ICD Code: I10 - Essential (primary) hypertension (3) Dehydration ICD Code: E86.0 - Dehydration (4) Hyperglycemia ICD Code: R73.9 - Hyperglycemia, unspecified (5) Leukocytosis ICD Code: D72.829 - Elevated white blood cell count, unspecified (6) Hypokalemia ICD Code: E87.6 - Hypokalemia Status: Acute (7) Respiratory distress ICD Code: R06.03 - Acute respiratory distress Assessment and Plan 76 yrs old man with: Encephalopathy: Improving however Unclear etiology. CT Head w/ no acute findings. No obvious source of infection, CXR w/ no acute findings, U/a negative. Urine Drug Screen negative. LP pending. Check EEG, Brain MRI and consult Neurology. Continue with current prophylactic antibiotics including ampicillin, Rocephin and vancomycin plan for LP. IR regarding LP not being done, discussed with radiology, reports only stat procedures were done today and IR team no longer available unless called in. Respiratory distress 2/2 PE CTA reviewed shows few small scattered right sided pulmonary emboli. IR regarding LP not being done, discussed with radiology, reports only stat procedures were done today and IR team no longer available unless called in. Continue IV heparin drip. Hematology consulted, appreciate recommendations. Continue Duo Neb schedule and PRN, Prednisone 40mg Daily Leukocytosis: Resolved Hyperglycemia: Hgb A1c pending. Sliding scale w/ Accu-Cheks. Hypokalemia: K+ 2.9 on admission s/p replacement monitor and replace as needed. Hypertension: Labile BP; Currently on verapamil 120 mg BID, Atenolol 25mg daily DVT Prophylaxis: SCD/Teds CM consulted for DC plan Discussed with the patient, nurse, family at bedside Ramya Zapata MD Feb 14, 2017 09:31
[2017-02-14 09:40] LABS: HEMOGLOBIN A1a 1.2 %; HEMOGLOBIN A1b 0.9 %; HEMOGLOBIN Ao 84.1 %; HEMOGLOBIN F 1.4 %; HEMOGLOBIN LA1C 2.4 %; HEMOGLOBIN P3 3.9 %
[2017-02-14] MEDS: FAMOTIDINE 20 MG TAB PO SCH (09:44)
[2017-02-14] MEDS: predniSONE 20 MG TAB PO SCH (09:44)
[2017-02-14] MEDS: VERAPAMIL HCL 120 MG TAB PO SCH (09:44)
[2017-02-14] MEDS: ATENOLOL 25 MG TAB PO SCH (09:44)
[2017-02-14] MEDS ORDERED: POTASSIUM CHLORIDE 10 MEQ CONTROLLED RELEASE TAB PO ONE (09:45)
[2017-02-14 09:47] LABS: HEMOGLOBIN A1a 1.2 %; HEMOGLOBIN A1b 0.9 %; HEMOGLOBIN Ao 83.9 %; HEMOGLOBIN F 1.4 %; HEMOGLOBIN LA1C 2.4 %
[2017-02-14] MEDS ORDERED: RESP: ALBUTEROL 2.5 MG/IPRATROPIUM 0.5 MG NEB (PRN) NEB (11:15)
--- NOTE | 2017-02-14 11:27 | PD.CONS ---
History of Present Illness Service Neurology Consult Requested By Dr. Cerna Reason for Consult Altered Mental status Primary Care Physician Davidson Hughes, DO History of Present Illness 76 y/o male that was brought to ER for change in mental status she reports he developed nausea/vomitting and then Wednesday night developed change in mental status reports he was confused and not orient was concerned about possible stroke no focal deficit had difficulty with word finding and aphasia no weakness or sensory changes became aggitated in the ER no dizziness no head injury no fall no hx of stroke or sz he has been scheduled for EEG and LP (Josephine Caldera) Review of Systems All other ROS: ROS reviewed as documented in chart (Josephine Caldera) Past Family Social History Allergies: Coded Allergies: No Known Allergies (Verified Allergy, Mild, 02/12/17) Past Medical History HTN, Chronic Back pain, Depression, h/o DVT s/p IVC and Diet Controlled DM Past Surgical History Left Knee Replacement, IVC Filter Active Ordered Medications Current Medications Medications (Trade) Dose Ordered Sig/Ty Route Start Time Stop Time Status Last Admin Sodium Chloride 1,000 ml @ 70 mls/hr [id number] IV 02/12/17 23:11 02/13/17 09:06 (NS Flush) 2 ml UNSCH PRN IV FLUSH 02/12/17 23:15 (NS Flush) 2 ml BID IV FLUSH 02/13/17 09:00 02/13/17 20:26 (Zofran Inj) 4 mg Q6H PRN IVP 02/12/17 23:15 (Tylenol) 650 mg Q6H PRN PO 02/12/17 23:15 (Milk Of Magnesia Liq) 30 ml Q12H PRN PO 02/12/17 23:15 (Flomax) 0.4 mg HS PO 02/13/17 21:00 02/13/17 20:25 (Pepcid) 20 mg DAILY PO 02/13/17 09:00 02/14/17 09:44 (Tenormin) 25 mg DAILY PO 02/13/17 09:00 02/14/17 09:44 (Isoptin) 120 mg BID PO 02/13/17 09:00 02/14/17 09:44 Ceftriaxone Sodium 2000 mg/ Sodium Chloride 100 ml @ 200 mls/hr Q12H IV 02/13/17 04:00 02/14/17 03:37 Ampicillin Sodium 2000 mg/Sodium Chloride 100 ml @ 400 mls/hr Q4H IV 02/13/17 03:00 02/14/17 02:50 Pharmacy Profile Note 0 ml @ 0 mls/hr UNSCH OTHER 02/13/17 02:15 (Catapres) 0.1 mg Q6H PRN PO 02/13/17 04:15 (D50w (Vial) Inj) 50 ml UNSCH PRN IV PUSH 02/13/17 07:45 (Glucagon Inj) 1 mg UNSCH PRN OTHER 02/13/17 07:45 (NovoLOG SUPPLEMENTAL SCALE) 1 ACHS SLIDING SCALE SQ 02/13/17 08:00 02/13/17 09:19 Vancomycin HCl 1750 mg/Sodium Chloride 517.5 ml @ 257.5 mls/ hr Q24H IV 02/14/17 06:00 02/14/17 04:55 Miscellaneous Information SPECIFIC LAB TO BE HUGO... ONCE ONCE .XX 02/16/17 05:45 02/16/17 05:46 (Duoneb Neb) 1 ampule Q6HR WHILE AWAKE NEB NEB 02/13/17 14:00 02/14/17 08:02 (Deltasone) 40 mg DAILY PO 02/13/17 12:00 02/18/17 11:59 02/14/17 09:44 (Haldol Inj) 2 mg Q6H PRN IM 02/13/17 17:15 Heparin Sodium/ Dextrose 250 ml @ 16 mls/hr TITRATE PRN IV 02/13/17 17:30 02/13/17 19:23 Family History noncontributory Social History Occasional alcohol. Negative for tobacco or drugs (Josephine Caldera) Exam I&O / VS Vital Signs Date Time Temp Pulse Resp B/P (MAP) Pulse Ox O2 Delivery O2 Flow Rate FiO2 02/14/17 08:05 97 Nasal Cannula 2.00 02/14/17 08:00 98.2 78 20 203/89 (127) 94 02/14/17 04:12 56 02/14/17 04:00 98.6 63 22 150/70 (96) 97 02/14/17 00:00 Nasal Cannula 2.00 02/14/17 00:00 97.8 60 22 146/67 (93) 97 02/13/17 21:37 61 02/13/17 20:30 Nasal Cannula 2.00 02/13/17 20:00 97.8 59 22 159/84 (109) 96 02/13/17 16:57 96.1 59 28 155/87 (109) 94 Manual Cuff/Auscultation 02/13/17 13:43 97.4 59 24 177/86 (116) 96 02/13/17 13:20 Nasal Cannula 2.00 General: Alert and Oriented, No acute distress Eye: PERRL, EOMI Cardiology: Normal rate Musculoskeletal: ROM Neurologic: Alert, Oriented, Normal sensory, Normal motor, No focal defects, CN II-XII intact Psychiatric: Cooperative, Appropriate mood & affect, Normal judgement Exam Comments a&o x 3, face sym, strength 5/5, no drift, no focal deficit, no ataxia, gait withheld, reflexes 1+, tone normal (Josephine Caldera) Review/Management Diagnosis Laboratory Tests Test 02/13/17 14:00 02/13/17 15:14 02/13/17 18:15 02/13/17 18:48 Blood Gas Puncture Site RT RADIAL Blood Gas Patient Temperature 37.0 Blood Gas HCO3 25 mmol/L Blood Gas Base Excess 1.3 mmol/L Blood Gas Oxygen Saturation 95 % Arterial Blood pH 7.47 Arterial Blood Partial Pressure CO2 35 mmHg Arterial Blood Partial Pressure O2 83 mmHG Arterial Blood Oxygen Content 17.4 Vol % Arterial Blood Carboxyhemoglobin 1.2 % Arterial Blood Methemoglobin 0.8 % Blood Gas Hemoglobin 13.0 G/DL Oxygen Delivery Device NASAL CANNULA Blood Gas Liter Flow 2 L/M Ammonia 53 MCMOL/L Prothrombin Time 11.9 SEC Prothromb Time International Ratio 1.2 RATIO Activated Partial Thromboplast Time 23.1 SEC White Blood Count 13.1 TH/MM3 Red Blood Count 3.83 MIL/MM3 Hemoglobin 12.4 GM/DL Hematocrit 37.5 % Mean Corpuscular Volume 98.0 FL Mean Corpuscular Hemoglobin 32.5 PG Mean Corpuscular Hemoglobin Concent 33.1 % Red Cell Distribution Width 13.5 % Platelet Count 204 TH/MM3 Mean Platelet Volume 8.5 FL Test 02/14/17 03:26 02/14/17 08:45 02/14/17 08:47 Activated Partial Thromboplast Time 104.9 SEC 42.4 SEC White Blood Count 11.5 TH/MM3 Red Blood Count 3.80 MIL/MM3 Hemoglobin 12.4 GM/DL Hematocrit 36.6 % Mean Corpuscular Volume 96.4 FL Mean Corpuscular Hemoglobin 32.7 PG Mean Corpuscular Hemoglobin Concent 33.9 % Red Cell Distribution Width 13.6 % Platelet Count 192 TH/MM3 Mean Platelet Volume 8.3 FL Neutrophils (%) (Auto) 77.8 % Lymphocytes (%) (Auto) 10.5 % Monocytes (%) (Auto) 11.5 % Eosinophils (%) (Auto) 0.0 % Basophils (%) (Auto) 0.2 % Neutrophils # (Auto) 8.9 TH/MM3 Lymphocytes # (Auto) 1.2 TH/MM3 Monocytes # (Auto) 1.3 TH/MM3 Eosinophils # (Auto) 0.0 TH/MM3 Basophils # (Auto) 0.0 TH/MM3 CBC Comment DIFF FINAL Differential Comment Blood Urea Nitrogen 23 MG/DL Creatinine 1.32 MG/DL Random Glucose 136 MG/DL Calcium Level 8.7 MG/DL Magnesium Level 2.4 MG/DL Sodium Level 136 MEQ/L Potassium Level 3.2 MEQ/L Chloride Level 101 MEQ/L Carbon Dioxide Level 27.2 MEQ/L Anion Gap 8 MEQ/L Estimat Glomerular Filtration Rate 53 ML/MIN Ammonia 16 MCMOL/L Last [address] Angiography 02/13/17 0000 Signed Impressions: Service Date/Time: Monday, February 13, 2017 11:58 - CONCLUSION: 1. Few small scattered right sided pulmonary emboli. 2. No infiltrate or mass. 3. Cardiomegaly coronary artery calcifications. Bruce Middleton MD Brain MRI 02/13/17 0000 Signed Impressions: Service Date/Time: Monday, February 13, 2017 12:22 - CONCLUSION: 1. Chronic ischemic small vessel vasculopathy. 2. No acute infarction. Bruce Middleton MD Diagnosis/Plan: (1) Altered mental status ICD Codes: R41.82 - Altered mental status, unspecified Status: Acute (2) Encephalopathy ICD Codes: G93.40 - Encephalopathy, unspecified Status: Acute Plan: pt with change in mental status associated with recent infection ? infectious/metabolic etiology EEG pending MRI- no acute changes, chronic microvascular changes LP pending heme was consulted for CTA results (Josephine Caldera) Daily Summary pt seen and examined. ox 3, follows. appropriate. d/w PA. looks alot better. follow exam. d/w pt and daughter (Virgilio Jones MD) Problem Qualifiers (1) Altered mental status: Qualified Codes: R41.0 - Disorientation, unspecified Josephine Caldera Feb 14, 2017 11:27 Virgilio Jones MD Feb 14, 2017 15:05
--- NOTE | 2017-02-14 11:49 | MB ---
cc: ESDRAS CHRISTIE M.D. DATE OF CONSULTATION: 02/14/2017. REASON FOR CONSULTATION: Hematology was consulted to render opinion regarding a patient with bilateral pulmonary embolisms. ATTENDING PHYSICIAN: Dr. Zapata. HISTORY OF PRESENT ILLNESS: The patient is a very pleasant 76-year-old male brought into the hospital with mental status change. His daughter was at the bedside. His daughter is a registered nurse. The patient started having nausea, vomiting and mild headache Wednesday. His daughter also had flu-like symptoms just prior to that. By Wednesday, the patient was noted to be confused. He was brought into the hospital. He was noted to have elevated blood pressure and was tachycardic. He was also noted to have a temperature of 101.5. He had leukocytosis and appeared dehydrated with electrolyte abnormalities. He had a CT angiogram which showed a few small scattered right pulmonary embolism but no infiltrate or mass noted. Hematology was consulted for further evaluation. When I saw the patient this morning, his mental status has improved, although he still has episodes of confusion. He denies any chest pain. He has shortness of breath and mild cough. His nausea has improved. He had abdominal pain when he had the dry heaves but that has improved. He denies any dysuria or hematuria. He had diarrhea since he came to the hospital. PAST MEDICAL HISTORY: 1. Bilateral lower extremity deep venous thrombosis in 2009. 2. Hypertension. 3. Chronic back pain. 4. Depression. 5. Diabetes, diet-controlled. PAST SURGICAL HISTORY: 1. IVC filter placement. 2. Left knee surgery. FAMILY HISTORY: One brother and four daughters are all healthy. No family history of thromboembolic event. SOCIAL HISTORY: He drinks occasionally. He quit tobacco about thirty years ago. ALLERGIES: NO KNOWN DRUG ALLERGIES. CURRENT MEDICATIONS: 1. Heparin. 2. Vancomycin. 3. Tamsulosin. 4. DuoNeb. 5. Prednisone. 6. Famotidine. 7. Atenolol. 8. Verapamil. 9. Ceftriaxone. 10. Ampicillin. REVIEW OF SYSTEMS: CONSTITUTIONAL: As above. EYES: Negative. ENT: Negative. CARDIOVASCULAR: As above. RESPIRATORY: As above. GI: As above. : Denies any dysuria or hematuria. MUSCULOSKELETAL: Negative. HEMATOLOGIC: As above. ENDOCRINE: Negative. DERMATOLOGIC: Negative. PSYCHIATRIC: As above. NEUROLOGIC: As above. PHYSICAL EXAMINATION: VITAL SIGNS: Temperature 98.6, blood pressure 150/70, 02 saturation 97% on two liters nasal cannula. GENERAL: He is alert and oriented times three and in no acute distress. HEAD, EYES, EARS, NOSE, THROAT: Atraumatic, normocephalic. Pupils equal, round, reactive to light. Extraocular muscles are intact. No scleral icterus. OROPHARYNX: Dry mucosa. NECK: No thyromegaly. No palpable mass. LYMPHATIC: No palpable cervical, clavicular, axillary or inguinal lymph nodes. CARDIOVASCULAR: Regular S1-S2. No murmur. LUNGS: Bilateral basilar crackles. No wheezing. ABDOMEN: Abdomen soft and nontender. I could not palpate the liver or spleen. EXTREMITIES: No cyanosis or clubbing. No edema. BACK: No paravertebral tenderness. No nuchal rigidity. SKIN: No rash or petechiae. NEUROLOGIC EXAM: Nonfocal. LABORATORY DATA: WBCs 11.5, hemoglobin 12.4, platelet count 192,000. Creatinine 1.32. Estimated GFR of 53. ASSESSMENT: 1. Right lung pulmonary embolism. A CT angiogram noted a few small scattered thrombus in the right lung. The patient has a history of bilateral lower extremity deep venous thrombosis around 2009. At that time, he had IVC filter placement but he could not tell me why the IVC was placed. He was on coumadin for about eight months and was switched to Xarelto, which he continued for about a year and a half. He had seen a rn home health at that time and Xarelto was stopped. He now has small right pulmonary embolism. I do not see significant lower extremity edema. I am wondering if the pulmonary embolism could be emboli from clots around the IVC filter. I am going to have him get ultrasound of the lower extremities to see if there is any deep venous thrombosis. He is currently on heparin. He is awaiting a neurology evaluation and may have to have a lumbar puncture. As such, I recommend that he stay on heparin until all the procedure is done. At that time, he could be bridged to Xarelto. He had tolerated Xarelto in the past very well. 2. Mental status change. He came in with fever, nausea, vomiting, mild headache. His daughter had flu-like syndrome just prior to the patient getting sick. The patient was noted to have leukocytosis. His mental status has improved. Blood cultures are pending. He is awaiting a neurology evaluation and may need possible lumbar puncture. 3. Chronic back pain. 4. Hypertension. 5. Diabetes, diet-controlled. RECOMMENDATIONS: 1. Extensive discussion with the patient and his daughter. 2. Continue heparin for now. Once he completes all the invasive procedures, then he could be bridged to Xarelto. 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 3. Get ultrasound of the lower extremities. Thank you, Dr. Zapata, for asking me to see this patient. MD BABATUNDE Salazar/JCAjay /10:46 AM /11:31 AM MTDD
[2017-02-14] MEDS: HEPARIN-D5W 25,000 U/250 ML 250 ML IV PRN (13:14)
--- NOTE | 2017-02-14 16:32 | RADRPT ---
EXAM DATE/TIME: 02/14/2017 15:50 [facility] COMPARISON: No previous studies available for comparison. INDICATIONS : Pulmonary embolism. MEDICAL HISTORY : Hypercholesterolemia. Hypertension. Chronic obstructive pulmonary disease. Deep vein thrombosis. Her jose alberto, hiatal. Kidney stones. Diabetes. SURGICAL HISTORY : Partial left knee replacement. Right knee arthroscopy. IVC filter. Hernia repair. ENCOUNTER: Initial ACUITY: 2 day PAIN SCORE: 2/10 LOCATION: Bilateral legs. TECHNIQUE: Venous ultrasound of the left and right leg was performed from the inguinal ligament to the proximal calf. Real-time, color Doppler and spectral tracing, compression and augmentation techniques were us ed. FINDINGS: RIGHT LEG: There is normal compressibility of the deep venous system from the inguinal region to the proximal ca lf. No echogenic clot is seen in the lumen of the common femoral, femoral, popliteal, and posterior tibial veins. There is a normal response of the venous system to proximal and distal augmentation an d respiration. LEFT LEG: There is normal compressibility of the deep venous system from the inguinal region to the proximal ca lf. No echogenic clot is seen in the lumen of the common femoral, femoral, popliteal, and posterior tibial veins. There is a normal response of the venous system to proximal and distal augmentation an d respiration. CONCLUSION: No venous thrombosis of either lower extremity. Davidson Luevano MD on February 14, 2017 at 16:29 Board Certified Radiologist. This report was verified electronically.
--- NOTE | 2017-02-14 19:59 | MG ---
cc: LIAT PACHECO MD Lab No: Date: 02/14/2017 Age: Sex: M Race: ELECTROENCEPHALOGRAM RECORD NUMBER [id number] DATE OF 1940 HISTORY A 76-year-old with history of mental status changes. DESCRIPTION 4-7 Hz activity, 20-60 microvolts. Frontal theta and mild delta activity occurring. reduced driving with photic stimulation. Single lead EKG showing sinus rhythm. INTERPRETATION Mild encephalopathy. Clinical correlation. Liat Pacheco MD MG/KK /7:38 PM /7:50 PM MTDD
[2017-02-14] MEDS ORDERED: ZOLPIDEM TARTRATE 5 MG TAB PO ONE (20:30)
[2017-02-14 21:02] LABS: APTT (PATIENT) 24.8 SEC (24.3-30.1)
[2017-02-14] MEDS: TAMSULOSIN HCL 0.4 MG CAP PO SCH (21:20)
--- NOTE | 2017-02-14 23:12 | EKG ---
Date Performed: 02/12/2017 Time Performed: 22:51:53 PTAGE: 76 years EKG: Sinus rhythm WITH FIRST DEGREE AV BLOCK WITH OCCASIONAL SUPRAVENTRICULAR PREMATURE COMPLEXES POSSIBLE LEFT ATRIAL ENLARGEMENT INCOMPLETE RIGHT BUNDLE BRANCH BLOCK ABNORMAL ECG PREVIOUS TRACING : 08/04/2007 12.55 Compared to prior tracing no significant change DOCTOR: Francois Zuñiga Interpretating Date/Time 02/14/2017 23:11:14
[2017-02-15] VITALS (9 sets, daily range): BP systolic 169–212; BP diastolic 82–94; PULSE 62–79; RESP 20; TEMP 97.8–99.7; O2SAT 93–97
[2017-02-15] MEDS: SODIUM CHLOR 0.9% 1000 ML INJ 1,000 ML IV SCH ×2 (02:58→17:04)
[2017-02-15] MEDS: AMPICILLIN INJ 2,000 MG in SODIUM CHLORIDE 0.9% INJ 100 ML IV SCH ×6 (03:07→22:07)
[2017-02-15] MEDS: cefTRIAXone INJ 2,000 MG in SODIUM CHLORIDE 0.9% INJ 100 ML IV SCH ×2 (04:16→15:44)
[2017-02-15] MEDS: VANCOMYCIN INJ 1,750 MG in SODIUM CHLORID 0.9% 500 ML INJ 500 ML IV SCH (05:41)
[2017-02-15] MEDS: HEPARIN-D5W 25,000 U/250 ML 250 ML IV PRN ×2 (06:44→22:16)
[2017-02-15] MEDS: RESP: ALBUTEROL 2.5 MG/IPRATROPIUM 0.5 MG NEB (SCH) NEB ×3 (07:55→20:38)
[2017-02-15] MEDS: INSULIN ASPART SUPPLEMENTAL SCALE SQ SCH ×4 (08:00→21:00)
--- NOTE | 2017-02-15 08:25 | HHI.PR ---
Review/Management Diagnosis Laboratory Tests Test 02/13/17 14:00 02/13/17 15:14 02/13/17 18:15 02/13/17 18:48 Blood Gas Puncture Site RT RADIAL Blood Gas Patient Temperature 37.0 Blood Gas HCO3 25 mmol/L Blood Gas Base Excess 1.3 mmol/L Blood Gas Oxygen Saturation 95 % Arterial Blood pH 7.47 Arterial Blood Partial Pressure CO2 35 mmHg Arterial Blood Partial Pressure O2 83 mmHG Arterial Blood Oxygen Content 17.4 Vol % Arterial Blood Carboxyhemoglobin 1.2 % Arterial Blood Methemoglobin 0.8 % Blood Gas Hemoglobin 13.0 G/DL Oxygen Delivery Device NASAL CANNULA Blood Gas Liter Flow 2 L/M Ammonia 53 MCMOL/L Prothrombin Time 11.9 SEC Prothromb Time International Ratio 1.2 RATIO Activated Partial Thromboplast Time 23.1 SEC White Blood Count 13.1 TH/MM3 Red Blood Count 3.83 MIL/MM3 Hemoglobin 12.4 GM/DL Hematocrit 37.5 % Mean Corpuscular Volume 98.0 FL Mean Corpuscular Hemoglobin 32.5 PG Mean Corpuscular Hemoglobin Concent 33.1 % Red Cell Distribution Width 13.5 % Platelet Count 204 TH/MM3 Mean Platelet Volume 8.5 FL Test 02/14/17 03:26 02/14/17 08:45 02/14/17 08:47 Activated Partial Thromboplast Time 104.9 SEC 42.4 SEC White Blood Count 11.5 TH/MM3 Red Blood Count 3.80 MIL/MM3 Hemoglobin 12.4 GM/DL Hematocrit 36.6 % Mean Corpuscular Volume 96.4 FL Mean Corpuscular Hemoglobin 32.7 PG Mean Corpuscular Hemoglobin Concent 33.9 % Red Cell Distribution Width 13.6 % Platelet Count 192 TH/MM3 Mean Platelet Volume 8.3 FL Neutrophils (%) (Auto) 77.8 % Lymphocytes (%) (Auto) 10.5 % Monocytes (%) (Auto) 11.5 % Eosinophils (%) (Auto) 0.0 % Basophils (%) (Auto) 0.2 % Neutrophils # (Auto) 8.9 TH/MM3 Lymphocytes # (Auto) 1.2 TH/MM3 Monocytes # (Auto) 1.3 TH/MM3 Eosinophils # (Auto) 0.0 TH/MM3 Basophils # (Auto) 0.0 TH/MM3 CBC Comment DIFF FINAL Differential Comment Blood Urea Nitrogen 23 MG/DL Creatinine 1.32 MG/DL Random Glucose 136 MG/DL Calcium Level 8.7 MG/DL Magnesium Level 2.4 MG/DL Sodium Level 136 MEQ/L Potassium Level 3.2 MEQ/L Chloride Level 101 MEQ/L Carbon Dioxide Level 27.2 MEQ/L Anion Gap 8 MEQ/L Estimat Glomerular Filtration Rate 53 ML/MIN Ammonia 16 MCMOL/L Last [address] Angiography 02/13/17 0000 Signed Impressions: Service Date/Time: Monday, February 13, 2017 11:58 - CONCLUSION: 1. Few small scattered right sided pulmonary emboli. 2. No infiltrate or mass. 3. Cardiomegaly coronary artery calcifications. Bruce Middleton MD Brain MRI 02/13/17 0000 Signed Impressions: Service Date/Time: Monday, February 13, 2017 12:22 - CONCLUSION: 1. Chronic ischemic small vessel vasculopathy. 2. No acute infarction. Bruce Middleton MD Diagnosis/Plan: (1) Encephalopathy ICD Codes: G93.40 - Encephalopathy, unspecified Status: Acute Plan: ? infectious/metabolic etiology vs related hypoxia, pulm embolus EEG no sz MRI- no acute changes, chronic microvascular changes recs LP pending iv acyclovir started f/u esr/crp/tsh/b12 heme was consulted for CTA results (2) Altered mental status ICD Codes: R41.82 - Altered mental status, unspecified Status: Acute Subjective Subjective Comments confused overnight No headache No chest pain No dyspnea Active Medications Current Medications Medications (Trade) Dose Ordered Sig/Ty Route Start Time Stop Time Status Last Admin Sodium Chloride 1,000 ml @ 70 mls/hr [id number] IV 02/12/17 23:11 02/15/17 02:58 (NS Flush) 2 ml UNSCH PRN IV FLUSH 02/12/17 23:15 (NS Flush) 2 ml BID IV FLUSH 02/13/17 09:00 02/14/17 21:21 (Zofran Inj) 4 mg Q6H PRN IVP 02/12/17 23:15 (Tylenol) 650 mg Q6H PRN PO 02/12/17 23:15 (Milk Of Magnesia Liq) 30 ml Q12H PRN PO 02/12/17 23:15 (Flomax) 0.4 mg HS PO 02/13/17 21:00 02/14/17 21:20 (Pepcid) 20 mg DAILY PO 02/13/17 09:00 02/14/17 09:44 (Tenormin) 25 mg DAILY PO 02/13/17 09:00 02/14/17 09:44 (Isoptin) 120 mg BID PO 02/13/17 09:00 02/14/17 09:44 Ceftriaxone Sodium 2000 mg/ Sodium Chloride 100 ml @ 200 mls/hr Q12H IV 02/13/17 04:00 02/15/17 04:16 Ampicillin Sodium 2000 mg/Sodium Chloride 100 ml @ 400 mls/hr Q4H IV 02/13/17 03:00 02/15/17 03:07 Pharmacy Profile Note 0 ml @ 0 mls/hr UNSCH OTHER 02/13/17 02:15 (Catapres) 0.1 mg Q6H PRN PO 02/13/17 04:15 (D50w (Vial) Inj) 50 ml UNSCH PRN IV PUSH 02/13/17 07:45 (Glucagon Inj) 1 mg UNSCH PRN OTHER 02/13/17 07:45 (NovoLOG SUPPLEMENTAL SCALE) 1 ACHS SLIDING SCALE SQ 02/13/17 08:00 02/14/17 21:00 Vancomycin HCl 1750 mg/Sodium Chloride 517.5 ml @ 257.5 mls/ hr Q24H IV 02/14/17 06:00 02/15/17 05:41 Miscellaneous Information SPECIFIC LAB TO BE HUGO... ONCE ONCE .XX 02/16/17 05:45 02/16/17 05:46 (Duoneb Neb) 1 ampule Q6HR WHILE AWAKE NEB NEB 02/13/17 14:00 02/15/17 07:55 (Deltasone) 40 mg DAILY PO 02/13/17 12:00 02/18/17 11:59 02/14/17 09:44 (Haldol Inj) 2 mg Q6H PRN IM 02/13/17 17:15 Heparin Sodium/ Dextrose 250 ml @ 16 mls/hr TITRATE PRN IV 02/13/17 17:30 02/14/17 13:14 (Duoneb Neb) 1 ampule Q2HR NEB PRN NEB 02/14/17 11:15 Allergies Allergies Coded Allergies No Known Allergies (Verified Allergy, Mild, 02/12/17) Review of Systems All other ROS: ROS reviewed as documented in chart Exam I&O / VS Vital Signs Date Time Temp Pulse Resp B/P (MAP) Pulse Ox O2 Delivery O2 Flow Rate FiO2 02/15/17 07:58 97 Nasal Cannula 2.00 02/15/17 03:54 72 02/15/17 00:00 Room Air 02/15/17 00:00 79 02/14/17 21:20 Room Air 02/14/17 20:19 94 2.00 02/14/17 20:00 97.9 72 19 192/90 (124) 93 02/14/17 20:00 65 02/14/17 16:10 60 02/14/17 16:00 98.8 59 20 197/87 (123) 96 02/14/17 12:10 56 02/14/17 12:00 98.0 58 20 156/85 (108) 94 General: Alert and Oriented, No acute distress Eye: PERRL, EOMI Cardiology: Normal rate Musculoskeletal: ROM Neurologic: Alert, Normal motor, No focal defects, CN II-XII intact Psychiatric: Cooperative, Appropriate mood & affect, Normal judgement Exam Comments ox 2-3, not to exact place, follows, pleasant, eomi, face sym, neck supple, felipe to gravity Objective Micro and Labs Laboratory Tests Test 02/14/17 08:45 02/14/17 08:47 02/14/17 20:22 White Blood Count 11.5 Red Blood Count 3.80 Hemoglobin 12.4 Hematocrit 36.6 Mean Corpuscular Volume 96.4 Mean Corpuscular Hemoglobin 32.7 Mean Corpuscular Hemoglobin Concent 33.9 Red Cell Distribution Width 13.6 Platelet Count 192 Mean Platelet Volume 8.3 Neutrophils (%) (Auto) 77.8 Lymphocytes (%) (Auto) 10.5 Monocytes (%) (Auto) 11.5 Eosinophils (%) (Auto) 0.0 Basophils (%) (Auto) 0.2 Neutrophils # (Auto) 8.9 Lymphocytes # (Auto) 1.2 Monocytes # (Auto) 1.3 Eosinophils # (Auto) 0.0 Basophils # (Auto) 0.0 CBC Comment DIFF FINAL Differential Comment Blood Urea Nitrogen 23 Creatinine 1.32 Random Glucose 136 Calcium Level 8.7 Magnesium Level 2.4 Sodium Level 136 Potassium Level 3.2 Chloride Level 101 Carbon Dioxide Level 27.2 Anion Gap 8 Estimat Glomerular Filtration Rate 53 Ammonia 16 Activated Partial Thromboplast Time 42.4 24.8 Problem Qualifiers (1) Altered mental status: Qualified Codes: R41.0 - Disorientation, unspecified Virgilio Jones MD Feb 15, 2017 08:25
[2017-02-15 08:40] LABS: AUTOMATED NEUTROPHIL # 8.7 TH/MM3 (1.8-7.7); BASOPHIL % 0.2 % (0.0-2.0); HEMATOCRIT 36.4 % (39.0-51.0); HEMO FLAGS DIFF FINAL; LYMPH % 9.1 % (9.0-44.0); MEAN CELL VOLUME 97.2 FL (80.0-100.0); MEAN CORPUSCULAR HEMOGLOBIN 33.1 PG (27.0-34.0); MEAN CORPUSCULAR HGB CONC 34.1 % (32.0-36.0); MONO % 11.7 % (0.0-8.0); PLATELET COUNT 221 TH/MM3 (150-450); RED BLOOD COUNT 3.74 MIL/MM3 (4.50-5.90); RED CELL DISTRIBUTION WIDTH 13.5 % (11.6-17.2)
[2017-02-15 08:48] LABS: APTT (PATIENT) 24.9 SEC (24.3-30.1)
[2017-02-15] MEDS: predniSONE 20 MG TAB PO SCH (09:08)
[2017-02-15] MEDS: VERAPAMIL HCL 120 MG TAB PO SCH ×2 (09:08→22:04)
[2017-02-15] MEDS: FAMOTIDINE 20 MG TAB PO SCH (09:08)
[2017-02-15] MEDS: SODIUM CHLORIDE 0.9% FLUSH 10 ML FLUSH IV FLUSH SCH ×2 (09:08→21:00)
[2017-02-15] MEDS: ATENOLOL 25 MG TAB PO SCH (09:08)
[2017-02-15 09:11] LABS: BICARBONATE 25.4 MEQ/L (21.0-32.0); MAGNESIUM 2.4 MG/DL (1.5-2.5); POTASSIUM 3.2 MEQ/L (3.5-5.1)
[2017-02-15] MEDS ORDERED: ACYCLOVIR IV SCH (10:00)
[2017-02-15] MEDS ORDERED: SODIUM CHLORIDE 0.9% IV SCH (10:00)
--- NOTE | 2017-02-15 10:22 | HHI.PR ---
Subjective Remarks More confused today. Also overnight was confused, with visual and auditory hallucinations. Plan for LP today. No fever. No chills. He is answering some questions she falls asleep easily. No n/v/d/c. No bleeding. Objective Vitals Vital Signs Date Time Temp Pulse Resp B/P (MAP) Pulse Ox O2 Delivery O2 Flow Rate FiO2 02/15/17 08:00 97.9 67 20 185/94 (124) 96 02/15/17 07:58 97 Nasal Cannula 2.00 02/15/17 03:54 72 02/15/17 00:00 Room Air 02/15/17 00:00 79 02/14/17 21:20 Room Air 02/14/17 20:19 94 2.00 02/14/17 20:00 97.9 72 19 192/90 (124) 93 02/14/17 20:00 65 02/14/17 16:10 60 02/14/17 16:00 98.8 59 20 197/87 (123) 96 02/14/17 12:10 56 02/14/17 12:00 98.0 58 20 156/85 (108) 94 I/O 02/14/17 02/14/17 02/14/17 02/15/17 02/15/17 02/15/17 07:00 15:00 23:00 07:00 15:00 23:00 Intake Total 780 ml 365 ml 689 ml Output Total 275 ml Balance 780 ml 90 ml 689 ml Intake Oral 480 ml 365 ml 360 ml IV Total 300 ml 329 ml Output Urine Total 275 ml # Voids 2 1 1 1 # Bowel Movements 2 1 Result Diagram: 02/15/1770602/15/1707 Imaging Last Impressions Lower Extremity Ultrasound 02/14/17 0000 Signed Impressions: Service Date/Time: Tuesday, February 14, 2017 15:50 - CONCLUSION: No venous thrombosis of either lower extremity. Davidson Luevano MD CT Angiography 02/13/17 0000 Signed Impressions: Service Date/Time: Monday, February 13, 2017 11:58 - CONCLUSION: 1. Few small scattered right sided pulmonary emboli. 2. No infiltrate or mass. 3. Cardiomegaly coronary artery calcifications. Bruce Middleton MD Brain MRI 02/13/17 0000 Signed Impressions: Service Date/Time: Monday, February 13, 2017 12:22 - CONCLUSION: 1. Chronic ischemic small vessel vasculopathy. 2. No acute infarction. Bruce Middleton MD Head CT 02/12/17 0000 Signed Impressions: Service Date/Time: Sunday, February 12, 2017 21:53 - CONCLUSION: 1. No acute intracranial abnormalities. Ricky Morrow MD Chest X-Ray 02/12/17 0000 Signed Impressions: Service Date/Time: Sunday, February 12, 2017 21:23 - CONCLUSION: No acute disease. Ricky Morrow MD Objective Remarks GENERAL: NAD CARDIOVASCULAR: Regular rate and rhythm without murmurs, gallops, or rubs. RESPIRATORY: Breath sounds decrease bilaterally. No accessory muscle use.+exp wheezings GASTROINTESTINAL: Abdomen soft, non-tender, nondistended. MUSCULOSKELETAL: No cyanosis, or edema. NEURO: CN II-XII intact, no slurred speech BACK: Nontender without obvious deformity. No CVA tenderness. A/P Problem List: (1) Encephalopathy ICD Code: G93.40 - Encephalopathy, unspecified Status: Acute (2) HTN (hypertension) ICD Code: I10 - Essential (primary) hypertension (3) Dehydration ICD Code: E86.0 - Dehydration (4) Hyperglycemia ICD Code: R73.9 - Hyperglycemia, unspecified (5) Leukocytosis ICD Code: D72.829 - Elevated white blood cell count, unspecified (6) Hypokalemia ICD Code: E87.6 - Hypokalemia Status: Acute (7) Respiratory distress ICD Code: R06.03 - Acute respiratory distress Assessment and Plan 76 yrs old man with: Encephalopathy: Worsening today Unclear etiology. CT Head w/ no acute findings. No obvious source of infection, CXR w/ no acute findings, U/a negative. Urine Drug Screen negative. LP pending. Check EEG, Brain MRI and consult Neurology. Continue with current prophylactic antibiotics including ampicillin, Rocephin and vancomycin plan for LP. IR regarding LP not being done, discussed with radiology, reports only stat procedures were done today and IR team no longer available unless called in. Plan for LP today 02/15/17 Patient is confused again Hallucinations visual and auditory. Will also consult psychiatry for eval. Respiratory distress 2/2 PE CTA reviewed shows few small scattered right sided pulmonary emboli. IR regarding LP not being done, discussed with radiology, reports only stat procedures were done today and IR team no longer available unless called in. Continue IV heparin drip. Hematology consulted, appreciate recommendations. Continue heparin drip held for LP today Continue Duo Neb schedule and PRN, Prednisone 40mg Daily Leukocytosis: Resolved Hyperglycemia: Hgb A1c pending. Sliding scale w/ Accu-Cheks. Hypokalemia: K+ 2.9 on admission s/p replacement monitor and replace as needed. Hypertension: Labile BP; Currently on verapamil 120 mg BID, Atenolol 25mg daily DVT Prophylaxis: SCD/Teds CM consulted for DC plan Discussed with the patient, nurse, family at bedside. DC plan: pending work up, LP today, more confused with hallucinations also consult psych. Ramya Zapata MD Feb 15, 2017 10:22
--- NOTE | 2017-02-15 13:04 | PD.ONC.PN ---
Subjective Subjective Remarks Afebrile overnight. Patient resting in bed, sleeping. Daughters at bedside. Patient has been very fatigued today. Per daughters he was unable to sleep in the two prior days. When I wake him up, he is fatigued but alert. Denies pain. Objective Data Date Time Temp Pulse Resp B/P (MAP) Pulse Ox O2 Delivery O2 Flow Rate FiO2 02/15/17 08:00 97.9 67 20 185/94 (124) 96 02/15/17 07:58 97 Nasal Cannula 2.00 02/15/17 03:54 72 02/15/17 00:00 Room Air 02/15/17 00:00 79 02/14/17 21:20 Room Air 02/14/17 20:19 94 2.00 02/14/17 20:00 97.9 72 19 192/90 (124) 93 02/14/17 20:00 65 02/14/17 16:10 60 02/14/17 16:00 98.8 59 20 197/87 (123) 96 02/15/17 02/15/17 02/15/17 07:00 15:00 23:00 Intake Total 689 ml Balance 689 ml Result Diagram: 02/15/17 0707 02/15/17 0707 Laboratory Results Laboratory Tests Test 02/14/17 20:22 02/15/17 07:07 Activated Partial Thromboplast Time 24.8 SEC 24.9 SEC White Blood Count 11.0 TH/MM3 Red Blood Count 3.74 MIL/MM3 Hemoglobin 12.4 GM/DL Hematocrit 36.4 % Mean Corpuscular Volume 97.2 FL Mean Corpuscular Hemoglobin 33.1 PG Mean Corpuscular Hemoglobin Concent 34.1 % Red Cell Distribution Width 13.5 % Platelet Count 221 TH/MM3 Mean Platelet Volume 9.1 FL Neutrophils (%) (Auto) 79.0 % Lymphocytes (%) (Auto) 9.1 % Monocytes (%) (Auto) 11.7 % Eosinophils (%) (Auto) 0.0 % Basophils (%) (Auto) 0.2 % Neutrophils # (Auto) 8.7 TH/MM3 Lymphocytes # (Auto) 1.0 TH/MM3 Monocytes # (Auto) 1.3 TH/MM3 Eosinophils # (Auto) 0.0 TH/MM3 Basophils # (Auto) 0.0 TH/MM3 CBC Comment DIFF FINAL Differential Comment Erythrocyte Sedimentation Rate 8 mm/hr Blood Urea Nitrogen 16 MG/DL Creatinine 1.11 MG/DL Random Glucose 122 MG/DL Calcium Level 9.2 MG/DL Magnesium Level 2.4 MG/DL Sodium Level 140 MEQ/L Potassium Level 3.2 MEQ/L Chloride Level 104 MEQ/L Carbon Dioxide Level 25.4 MEQ/L Anion Gap 11 MEQ/L Estimat Glomerular Filtration Rate 64 ML/MIN C-Reactive Protein 2.40 MG/DL Vitamin B12 Level 502 PG/ML Thyroid Stimulating Hormone 3rd Gen 0.483 uIU/ML Administered Medications Medications (Trade) Dose Ordered Sig/Ty Route PRN Reason Start Time Stop Time Status Last Admin Dose Admin Sodium Chloride 1,000 ml @ 70 mls/hr [id number] IV 02/12/17 23:11 02/15/17 02:58 Sodium Chloride (NS Flush) 2 ml BID IV FLUSH 02/13/17 09:00 02/15/17 09:08 Tamsulosin HCl (Flomax) 0.4 mg HS PO 02/13/17 21:00 02/14/17 21:20 Famotidine (Pepcid) 20 mg DAILY PO 02/13/17 09:00 02/15/17 09:08 Atenolol (Tenormin) 25 mg DAILY PO 02/13/17 09:00 02/15/17 09:08 Verapamil HCl (Isoptin) 120 mg BID PO 02/13/17 09:00 02/15/17 09:08 Ceftriaxone Sodium 2000 mg/ Sodium Chloride 100 ml @ 200 mls/hr Q12H IV 02/13/17 04:00 02/15/17 04:16 Ampicillin Sodium 2000 mg/Sodium Chloride 100 ml @ 400 mls/hr Q4H IV 02/13/17 03:00 02/15/17 12:18 Insulin Aspart (NovoLOG SUPPLEMENTAL SCALE) 1 ACHS SLIDING SCALE SQ 02/13/17 08:00 02/15/17 12:25 Vancomycin HCl 1750 mg/Sodium Chloride 517.5 ml @ 257.5 mls/ hr Q24H IV 02/14/17 06:00 02/15/17 05:41 Albuterol/ Ipratropium (Duoneb Neb) 1 ampule Q6HR WHILE AWAKE NEB NEB 02/13/17 14:00 02/15/17 12:05 Prednisone (Deltasone) 40 mg DAILY PO 02/13/17 12:00 02/18/17 11:59 02/15/17 09:08 Heparin Sodium/ Dextrose 250 ml @ 16 mls/hr TITRATE PRN IV Coagulation Management 02/13/17 17:30 02/14/17 13:14 Objective Remarks GENERAL: Elderly male lying in bed sleeping on approach. SKIN: Warm and dry. HEAD: Normocephalic. EYES: No injection or drainage. NECK: Supple, trachea midline. CARDIOVASCULAR: Regular rate and rhythm RESPIRATORY: Breath sounds equal bilaterally. No accessory muscle use. GASTROINTESTINAL: Abdomen soft, non-tender, nondistended. EXTREMITIES: No cyanosis NEUROLOGICAL: awakens to tactile stimuli. alert and oriented to time place and self. able to move extremities. Assessment/Plan Problem List: (1) Pulmonary emboli ICD Codes: I26.99 - Other pulmonary embolism without acute cor pulmonale Plan: --continue heparin until all procedures complete, patient can then start Xarelto. --CTA noted a few small scattered thrombus in the right lung. --patient has a history of bilateral lower extremity deep venous thrombosis around 2009. At that time, he had IVC filter placement --was on coumadin for about eight months and was switched to Xarelto, which he continued for about a year and a half. He had seen a plate corrector at that time and Xarelto was stopped. --now has small right pulmonary embolism. --pulmonary embolism could be emboli from clots around the IVC filter --LE U/S shows no DVT (2) Altered mental status ICD Codes: R41.82 - Altered mental status, unspecified Status: Acute Plan: --came in with fever, nausea, vomiting, mild headache. -- mental status has improved. Blood cultures are pending. --neurology following and LP planned for this afternoon. Assessment 76y/o male with bilateral pulmonary emboli, admitted with AMS h/o Bilateral lower extremity deep venous thrombosis in 2009. Hypertension. Chronic back pain. Depression. Diabetes, diet-controlled. Plan 1. continue heparin 2. monitor mental status 3. once procedures complete, start xarelto. Attending Statement The exam, history, and the medical decision-making described in the above note were completed with the assistance of the mid-level provider. I reviewed and agree with the findings presented. I attest that I had a [id number] encounter with the patient on the same day, and personally performed and documented my assessment and findings in the medical record. Still has intermittent confusion. On heparin and no bleeding. Denies chest pain/SOB. Await possible LP. Can transition to Xarelto when all procedures completed. Discussed with nursing staff. Problem Qualifiers (1) Altered mental status: Qualified Codes: R41.0 - Disorientation, unspecified Zoe Soto Feb 15, 2017 13:04 Eduardo Sanches MD Feb 15, 2017 19:24
[2017-02-15] MEDS ORDERED: POTASSIUM BICARBONATE 25 MEQ EFFERVESCENT TAB PO ONE (13:45)
--- NOTE | 2017-02-15 14:49 | PD.RAD ---
Post Procedure Progress Note Pre Procedure Diagnosis: (1) Altered mental status Post Procedure Diagnosis: (1) Altered mental status Procedure Date: Feb 15, 2017 Supervising Radiologist: Kj Brooks Proceduralist/Assist: Donny Chester, RT(R), Lynnette Richard RT(R) Anesthesia: Local Plan of Activity Patient to Unit: Nursing Unit Patient Condition: Good See PACS Report for procedural detail/treatment Kj Brooks MD Feb 15, 2017 14:49
--- NOTE | 2017-02-15 15:33 | RADRPT ---
EXAM DATE/TIME: 02/15/2017 13:55 [facility] COMPARISON: No previous studies available for comparison. INDICATIONS : Patient with altered mental status in need of lumbar puncture to rule out meningitis. MEDICAL HISTORY : HTN, Chronic back pain, DVT, Diabetes SURGICAL HISTORY : IVC Filter, Left knee replacement ENCOUNTER: Initial ACUITY: 3 days PAIN SCORE: 0/10 LUMBAR PUNCTURE TIME: 1429 hours FLUORO TIME: 0.3 minutes IMAGE SERIES: 0 ACCESS LEVEL: L3-4 OPENING PRESSURE: 31 cm of water CLOSING PRESSURE: Not requested. FLUID: 10 cc of clear CSF was collected and sent to the laboratory for analysis. PROCEDURE : 1. Fluoroscopic guided lumbar puncture. 2. Recording of opening pressure. The risks, benefits and alternatives to the procedure were explained and verbal and written consent w as obtained. The site was prepped in sterile fashion. Full sterile technique was used, including ca p, mask, sterile gloves and gown and a large sterile sheet. Hand hygiene and 2% chlorhexidine and/or betadine/alcohol prep was utilized per protocol for cutaneous antisepsis. The skin and subcutaneous tissues were infiltrated with local anesthetic solution. With fluoroscopic guidance the lumbar thecal sac was punctured at the above level described above and the opening pressure was recorded. The above described fluid was removed without difficulty. The patient tolerated the procedure well and there were no complications. CONCLUSION: Uncomplicated fluoroscopically guided lumbar puncture with pressures as above. Kj Brooks MD on February 15, 2017 at 15:31 Board Certified Radiologist. This report was verified electronically.
[2017-02-15 17:27] LABS: CSF EOSINOPHILS 1 %; CSF LYMPHOCYTES 59 %; CSF MONOCYTES 33 %; CSF NEUTROPHILS 6 %
[2017-02-15 17:29] LABS: GROSS BLOOD TUBE #1 0 (0); SUPERNATE COLOR TUBE #1 CLEAR (CLEAR); SUPERNATE COLOR TUBE #2 CLEAR (CLEAR); VOLUME TUBE # 2 1.5 ML
[2017-02-15 17:30] LABS: GROSS BLOOD TUBE #2 0 (0); SUPERNATE COLOR TUBE #3 CLEAR (CLEAR); SUPERNATE COLOR TUBE #4 CLEAR (CLEAR); VOLUME TUBE # 3 1.9 ML; VOLUME TUBE # 4 3.9 ML; WBC TUBE #4 388 /MM3 (0-10)
[2017-02-15] MEDS: TAMSULOSIN HCL 0.4 MG CAP PO SCH (22:05)
[2017-02-15] MEDS: ACYCLOVIR IV SCH (22:06)
[2017-02-15] MEDS: SODIUM CHLORIDE 0.9% IV SCH (22:06)
[2017-02-15] MEDS ORDERED: MELATONIN 5 MG TAB PO ONE (23:15)
[2017-02-16] VITALS (9 sets, daily range): BP systolic 142–200; BP diastolic 68–98; PULSE 56–98; RESP 20–22; TEMP 97.1–99; O2SAT 91–97
[2017-02-16] MEDS: cloNIDine HCL 0.1 MG TAB PO PRN (00:20)
[2017-02-16] MEDS: AMPICILLIN INJ 2,000 MG in SODIUM CHLORIDE 0.9% INJ 100 ML IV SCH ×3 (00:20→08:43)
[2017-02-16 03:21] LABS: MEAN CELL VOLUME 96.7 FL (80.0-100.0); MEAN CORPUSCULAR HEMOGLOBIN 32.2 PG (27.0-34.0); MEAN CORPUSCULAR HGB CONC 33.3 % (32.0-36.0); PLATELET COUNT 206 TH/MM3 (150-450); RED BLOOD COUNT 3.62 MIL/MM3 (4.50-5.90); RED CELL DISTRIBUTION WIDTH 13.5 % (11.6-17.2); REVIEW FLAG FINAL; WHITE BLOOD COUNT 8.1 TH/MM3 (4.0-11.0)
[2017-02-16 03:36] LABS: APTT (PATIENT) 58.9 SEC (24.3-30.1)
[2017-02-16] MEDS: cefTRIAXone INJ 2,000 MG in SODIUM CHLORIDE 0.9% INJ 100 ML IV SCH (03:42)
[2017-02-16] MEDS ORDERED: PHARMACY ORDERED LAB ONE (05:45)
[2017-02-16] MEDS: VANCOMYCIN INJ 1,750 MG in SODIUM CHLORID 0.9% 500 ML INJ 500 ML IV SCH (06:00)
[2017-02-16] MEDS: RESP: ALBUTEROL 2.5 MG/IPRATROPIUM 0.5 MG NEB (SCH) NEB ×3 (07:55→19:32)
[2017-02-16] MEDS: INSULIN ASPART SUPPLEMENTAL SCALE SQ SCH ×4 (08:00→20:49)
--- NOTE | 2017-02-16 08:06 | PD.ONC.PN ---
Subjective Subjective Remarks Mental status back to baseline according to pt's daughter. He is eager to go home. Denies headache. No CP/SOB. No bleeding. Objective Data Date Time Temp Pulse Resp B/P (MAP) Pulse Ox O2 Delivery O2 Flow Rate FiO2 02/16/17 07:56 93 02/16/17 04:00 97.4 60 22 158/82 (107) 94 02/16/17 04:00 56 02/16/17 00:00 63 02/16/17 00:00 97.7 60 20 166/80 (108) 97 02/15/17 22:48 Room Air 02/15/17 20:40 93 02/15/17 20:00 99.4 69 20 176/82 (113) 95 02/15/17 20:00 63 02/15/17 16:00 97.8 62 20 169/89 (115) 95 02/15/17 12:00 99.7 71 20 212/82 (125) 97 02/16/17 02/16/17 02/16/17 07:00 15:00 23:00 Intake Total 280 ml Output Total 650 ml Balance -370 ml Result Diagram: 02/16/17 0244 02/15/17 0707 Laboratory Results Laboratory Tests Test 02/15/17 14:29 02/16/17 02:44 02/16/17 05:30 CSF Volume (Tube 1) 2.0 ML CSF Supernatant Color (tube 1) CLEAR CSF Gross Blood (Tube 1) 0 CSF Volume (Tube 2) 1.5 ML CSF Supernatant Color (tube 2) CLEAR CSF Gross Blood (Tube 2) 0 CSF Volume (Tube 3) 1.9 ML CSF Supernatant Color (tube 3) CLEAR CSF Volume (Tube 4) 3.9 ML CSF Supernatant Color (tube 4) CLEAR CSF WBC (Tube 4) 388 /MM3 CSF RBC (Tube 4) 73 /MM3 CSF Neutrophils 6 % CSF Lymphocytes 59 % CSF Monocytes 33 % CSF Eosinophils 1 % CSF Basophils 1 % CSF Differential Comment White Blood Count 8.1 TH/MM3 Red Blood Count 3.62 MIL/MM3 Hemoglobin 11.7 GM/DL Hematocrit 35.0 % Mean Corpuscular Volume 96.7 FL Mean Corpuscular Hemoglobin 32.2 PG Mean Corpuscular Hemoglobin Concent 33.3 % Red Cell Distribution Width 13.5 % Platelet Count 206 TH/MM3 Mean Platelet Volume 8.7 FL Activated Partial Thromboplast Time 58.9 SEC Vancomycin Level Trough 9.0 MCG/ML Culture Results Microbiology Date/Time Source Procedure Growth Status 02/15/17 14:29 Cerebral Spinal Fluid Lumbar Puncture Gram Stain Pending Received 02/15/17 14:29 Cerebral Spinal Fluid Lumbar Puncture CSF Culture Pending Received Administered Medications Medications (Trade) Dose Ordered Sig/Ty Route PRN Reason Start Time Stop Time Status Last Admin Dose Admin Sodium Chloride 1,000 ml @ 70 mls/hr [id number] IV 02/12/17 23:11 02/15/17 17:04 Sodium Chloride (NS Flush) 2 ml BID IV FLUSH 02/13/17 09:00 02/15/17 21:00 Tamsulosin HCl (Flomax) 0.4 mg HS PO 02/13/17 21:00 02/15/17 22:05 Famotidine (Pepcid) 20 mg DAILY PO 02/13/17 09:00 02/15/17 09:08 Atenolol (Tenormin) 25 mg DAILY PO 02/13/17 09:00 02/15/17 09:08 Verapamil HCl (Isoptin) 120 mg BID PO 02/13/17 09:00 02/15/17 22:04 Ceftriaxone Sodium 2000 mg/ Sodium Chloride 100 ml @ 200 mls/hr Q12H IV 02/13/17 04:00 02/16/17 03:42 Ampicillin Sodium 2000 mg/Sodium Chloride 100 ml @ 400 mls/hr Q4H IV 02/13/17 03:00 02/16/17 03:42 Clonidine (Catapres) 0.1 mg Q6H PRN PO SEE LABEL COMMENTS 02/13/17 04:15 02/16/17 00:20 Insulin Aspart (NovoLOG SUPPLEMENTAL SCALE) 1 ACHS SLIDING SCALE SQ 02/13/17 08:00 02/15/17 15:51 Vancomycin HCl 1750 mg/Sodium Chloride 517.5 ml @ 257.5 mls/ hr Q24H IV 02/14/17 06:00 02/16/17 06:00 Albuterol/ Ipratropium (Duoneb Neb) 1 ampule Q6HR WHILE AWAKE NEB NEB 02/13/17 14:00 02/16/17 07:55 Prednisone (Deltasone) 40 mg DAILY PO 02/13/17 12:00 02/18/17 11:59 02/15/17 09:08 Acyclovir Sodium 950 mg/Sodium Chloride 150 ml @ 150 mls/hr Q12HR IV 02/15/17 21:00 02/15/17 22:06 Objective Remarks GENERAL: Well-nourished, well-developed patient. Weak. SKIN: Warm and dry. HEAD: Normocephalic. EYES: No scleral icterus. No injection or drainage. NECK: Supple, trachea midline. No JVD or lymphadenopathy. LYMPHATIC: No adenopathy. CARDIOVASCULAR: Regular rate and rhythm without murmurs. RESPIRATORY: Breath sounds equal bilaterally. No accessory muscle use. GASTROINTESTINAL: Abdomen soft, non-tender, nondistended. EXTREMITIES: No cyanosis, or edema. MUSCULOSKELETAL: Adequate muscle tone. NEUROLOGICAL: No obvious focal deficit. Awake, alert, and oriented x3. PSYCHIATRIC: Appropriate mood and affect; Assessment/Plan Problem List: (1) Pulmonary emboli ICD Codes: I26.99 - Other pulmonary embolism without acute cor pulmonale Plan: --patient completed LP, start Xarelto 15mg po BID x 21 days and then switch to 20mg daily. F/u with PCP. --CTA noted a few small scattered thrombus in the right lung. --patient has a history of bilateral lower extremity deep venous thrombosis around 2009. At that time, he had IVC filter placement --was on coumadin for about eight months and was switched to Xarelto, which he continued for about a year and a half. He had seen a green building design specialist at that time and Xarelto was stopped. --now has small right pulmonary embolism. --pulmonary embolism could be emboli from clots around the IVC filter --LE U/S shows no DVT (2) Altered mental status ICD Codes: R41.82 - Altered mental status, unspecified Status: Acute Plan: --came in with fever, nausea, vomiting, mild headache. -- mental status has improved. CSF GS pending. --neurology following and LP done yesterday. Assessment 76y/o male with bilateral pulmonary emboli, admitted with AMS h/o Bilateral lower extremity deep venous thrombosis in 2009. Hypertension. Chronic back pain. Depression. Diabetes, diet-controlled. Plan 1. Transition to Xarelto. 2. F/u PCP to manage anticoagulation. 3. Discussed with patient's daughter. Problem Qualifiers (1) Altered mental status: Qualified Codes: R41.0 - Disorientation, unspecified Eduardo Sanches MD Feb 16, 2017 08:06
--- NOTE | 2017-02-16 08:22 | HHI.PR ---
Review/Management Diagnosis Laboratory Tests Test 02/13/17 14:00 02/13/17 15:14 02/13/17 18:15 02/13/17 18:48 Blood Gas Puncture Site RT RADIAL Blood Gas Patient Temperature 37.0 Blood Gas HCO3 25 mmol/L Blood Gas Base Excess 1.3 mmol/L Blood Gas Oxygen Saturation 95 % Arterial Blood pH 7.47 Arterial Blood Partial Pressure CO2 35 mmHg Arterial Blood Partial Pressure O2 83 mmHG Arterial Blood Oxygen Content 17.4 Vol % Arterial Blood Carboxyhemoglobin 1.2 % Arterial Blood Methemoglobin 0.8 % Blood Gas Hemoglobin 13.0 G/DL Oxygen Delivery Device NASAL CANNULA Blood Gas Liter Flow 2 L/M Ammonia 53 MCMOL/L Prothrombin Time 11.9 SEC Prothromb Time International Ratio 1.2 RATIO Activated Partial Thromboplast Time 23.1 SEC White Blood Count 13.1 TH/MM3 Red Blood Count 3.83 MIL/MM3 Hemoglobin 12.4 GM/DL Hematocrit 37.5 % Mean Corpuscular Volume 98.0 FL Mean Corpuscular Hemoglobin 32.5 PG Mean Corpuscular Hemoglobin Concent 33.1 % Red Cell Distribution Width 13.5 % Platelet Count 204 TH/MM3 Mean Platelet Volume 8.5 FL Test 02/14/17 03:26 02/14/17 08:45 02/14/17 08:47 Activated Partial Thromboplast Time 104.9 SEC 42.4 SEC White Blood Count 11.5 TH/MM3 Red Blood Count 3.80 MIL/MM3 Hemoglobin 12.4 GM/DL Hematocrit 36.6 % Mean Corpuscular Volume 96.4 FL Mean Corpuscular Hemoglobin 32.7 PG Mean Corpuscular Hemoglobin Concent 33.9 % Red Cell Distribution Width 13.6 % Platelet Count 192 TH/MM3 Mean Platelet Volume 8.3 FL Neutrophils (%) (Auto) 77.8 % Lymphocytes (%) (Auto) 10.5 % Monocytes (%) (Auto) 11.5 % Eosinophils (%) (Auto) 0.0 % Basophils (%) (Auto) 0.2 % Neutrophils # (Auto) 8.9 TH/MM3 Lymphocytes # (Auto) 1.2 TH/MM3 Monocytes # (Auto) 1.3 TH/MM3 Eosinophils # (Auto) 0.0 TH/MM3 Basophils # (Auto) 0.0 TH/MM3 CBC Comment DIFF FINAL Differential Comment Blood Urea Nitrogen 23 MG/DL Creatinine 1.32 MG/DL Random Glucose 136 MG/DL Calcium Level 8.7 MG/DL Magnesium Level 2.4 MG/DL Sodium Level 136 MEQ/L Potassium Level 3.2 MEQ/L Chloride Level 101 MEQ/L Carbon Dioxide Level 27.2 MEQ/L Anion Gap 8 MEQ/L Estimat Glomerular Filtration Rate 53 ML/MIN Ammonia 16 MCMOL/L Last [address] Angiography 02/13/17 0000 Signed Impressions: Service Date/Time: Monday, February 13, 2017 11:58 - CONCLUSION: 1. Few small scattered right sided pulmonary emboli. 2. No infiltrate or mass. 3. Cardiomegaly coronary artery calcifications. Bruce Middleton MD Brain MRI 02/13/17 0000 Signed Impressions: Service Date/Time: Monday, February 13, 2017 12:22 - CONCLUSION: 1. Chronic ischemic small vessel vasculopathy. 2. No acute infarction. Bruce Middleton MD Diagnosis/Plan: (1) Encephalitis ICD Codes: G04.90 - Encephalitis and encephalomyelitis, unspecified Status: Acute Plan: wbc >300, predominant lymphs f/o hsv encephalitis looks much better today; daughter feels close to baseline recs iv acyclovir id eval (2) Encephalopathy ICD Codes: G93.40 - Encephalopathy, unspecified Status: Acute (3) Altered mental status ICD Codes: R41.82 - Altered mental status, unspecified Status: Acute (4) Pulmonary emboli ICD Codes: I26.99 - Other pulmonary embolism without acute cor pulmonale Status: Acute Plan: on oac Subjective Subjective Comments No acute events reported No headache No chest pain No dyspnea Active Medications Current Medications Medications (Trade) Dose Ordered Sig/Ty Route Start Time Stop Time Status Last Admin Sodium Chloride 1,000 ml @ 70 mls/hr [id number] IV 02/12/17 23:11 02/15/17 17:04 (NS Flush) 2 ml UNSCH PRN IV FLUSH 02/12/17 23:15 (NS Flush) 2 ml BID IV FLUSH 02/13/17 09:00 02/15/17 21:00 (Zofran Inj) 4 mg Q6H PRN IVP 02/12/17 23:15 (Tylenol) 650 mg Q6H PRN PO 02/12/17 23:15 (Milk Of Magnesia Liq) 30 ml Q12H PRN PO 02/12/17 23:15 (Flomax) 0.4 mg HS PO 02/13/17 21:00 02/15/17 22:05 (Pepcid) 20 mg DAILY PO 02/13/17 09:00 02/15/17 09:08 (Tenormin) 25 mg DAILY PO 02/13/17 09:00 02/15/17 09:08 (Isoptin) 120 mg BID PO 02/13/17 09:00 02/15/17 22:04 Ceftriaxone Sodium 2000 mg/ Sodium Chloride 100 ml @ 200 mls/hr Q12H IV 02/13/17 04:00 02/16/17 03:42 Ampicillin Sodium 2000 mg/Sodium Chloride 100 ml @ 400 mls/hr Q4H IV 02/13/17 03:00 02/16/17 03:42 Pharmacy Profile Note 0 ml @ 0 mls/hr UNSCH OTHER 02/13/17 02:15 (Catapres) 0.1 mg Q6H PRN PO 02/13/17 04:15 02/16/17 00:20 (D50w (Vial) Inj) 50 ml UNSCH PRN IV PUSH 02/13/17 07:45 (Glucagon Inj) 1 mg UNSCH PRN OTHER 02/13/17 07:45 (NovoLOG SUPPLEMENTAL SCALE) 1 ACHS SLIDING SCALE SQ 02/13/17 08:00 02/15/17 15:51 Vancomycin HCl 1750 mg/Sodium Chloride 517.5 ml @ 257.5 mls/ hr Q24H IV 02/14/17 06:00 02/16/17 06:00 (Duoneb Neb) 1 ampule Q6HR WHILE AWAKE NEB NEB 02/13/17 14:00 02/16/17 07:55 (Deltasone) 40 mg DAILY PO 02/13/17 12:00 02/18/17 11:59 02/15/17 09:08 (Haldol Inj) 2 mg Q6H PRN IM 02/13/17 17:15 (Duoneb Neb) 1 ampule Q2HR NEB PRN NEB 02/14/17 11:15 Acyclovir Sodium 950 mg/Sodium Chloride 150 ml @ 150 mls/hr Q12HR IV 02/15/17 21:00 02/15/17 22:06 (Xarelto) 15 mg BID PO 02/16/17 09:00 03/09/17 08:59 (Xarelto) 20 mg DAILY PO 03/09/17 09:00 Allergies Allergies Coded Allergies No Known Allergies (Verified Allergy, Mild, 02/12/17) Review of Systems All other ROS: ROS reviewed as documented in chart Exam I&O / VS Vital Signs Date Time Temp Pulse Resp B/P (MAP) Pulse Ox O2 Delivery O2 Flow Rate FiO2 02/16/17 07:56 93 02/16/17 04:00 97.4 60 22 158/82 (107) 94 02/16/17 04:00 56 02/16/17 00:00 63 02/16/17 00:00 97.7 60 20 166/80 (108) 97 02/15/17 22:48 Room Air 02/15/17 20:40 93 02/15/17 20:00 99.4 69 20 176/82 (113) 95 02/15/17 20:00 63 02/15/17 16:00 97.8 62 20 169/89 (115) 95 02/15/17 12:00 99.7 71 20 212/82 (125) 97 General: Alert and Oriented, No acute distress Eye: PERRL, EOMI Cardiology: Normal rate Musculoskeletal: ROM Neurologic: Alert, Normal motor, No focal defects, CN II-XII intact Psychiatric: Cooperative, Appropriate mood & affect, Normal judgement Exam Comments ox 3, able to name objects, appropriate, pres Trump, follows, pleasant, eomi, face sym, neck supple, felipe to gravity Objective Micro and Labs Laboratory Tests Test 02/15/17 14:29 02/16/17 02:44 02/16/17 05:30 CSF Volume (Tube 1) 2.0 CSF Supernatant Color (tube 1) CLEAR CSF Gross Blood (Tube 1) 0 CSF Volume (Tube 2) 1.5 CSF Supernatant Color (tube 2) CLEAR CSF Gross Blood (Tube 2) 0 CSF Volume (Tube 3) 1.9 CSF Supernatant Color (tube 3) CLEAR CSF Volume (Tube 4) 3.9 CSF Supernatant Color (tube 4) CLEAR CSF WBC (Tube 4) 388 CSF RBC (Tube 4) 73 CSF Neutrophils 6 CSF Lymphocytes 59 CSF Monocytes 33 CSF Eosinophils 1 CSF Basophils 1 CSF Differential Comment White Blood Count 8.1 Red Blood Count 3.62 Hemoglobin 11.7 Hematocrit 35.0 Mean Corpuscular Volume 96.7 Mean Corpuscular Hemoglobin 32.2 Mean Corpuscular Hemoglobin Concent 33.3 Red Cell Distribution Width 13.5 Platelet Count 206 Mean Platelet Volume 8.7 Activated Partial Thromboplast Time 58.9 Vancomycin Level Trough 9.0 Date/Time Source Procedure Growth Status 02/15/17 14:29 Cerebral Spinal Fluid Lumbar Puncture Gram Stain - Final Resulted 02/15/17 14:29 Cerebral Spinal Fluid Lumbar Puncture CSF Culture Pending Resulted Problem Qualifiers (1) Altered mental status: Qualified Codes: R41.0 - Disorientation, unspecified Virgilio Jones MD Feb 16, 2017 08:22
[2017-02-16] MEDS: RIVAROXABAN 15 MG TAB PO SCH ×2 (09:00→20:47)
[2017-02-16] MEDS: predniSONE 20 MG TAB PO SCH (10:07)
[2017-02-16] MEDS: ATENOLOL 25 MG TAB PO SCH (10:07)
[2017-02-16] MEDS: VERAPAMIL HCL 120 MG TAB PO SCH ×2 (10:07→20:47)
[2017-02-16] MEDS: FAMOTIDINE 20 MG TAB PO SCH (10:07)
[2017-02-16] MEDS: ACYCLOVIR IV SCH ×2 (10:08→20:48)
[2017-02-16] MEDS: SODIUM CHLORIDE 0.9% FLUSH 10 ML FLUSH IV FLUSH SCH ×2 (10:08→20:48)
[2017-02-16] MEDS: SODIUM CHLORIDE 0.9% IV SCH ×2 (10:08→20:48)
--- NOTE | 2017-02-16 11:13 | PD.PSY.CON ---
Provisional Diagnosis Admission Date Feb 13, 2017 at 17:20 [place] I. Delirium due to underlying medical conditions [place] II. Deferred [place] III. Chronic back pain, PE History of Present Illness Service Psychiatry Consult Requested By Primary medical Dr. Reason for Consult Visual hallucinations, disorganization Primary Care Physician Davidson Hughes, DO VERDUZCO The patient is a 76-year-old man, retired, domiciled in [facility], , without any previous psychiatric history, no previous suicidal attempts, no previous psychiatric hospitalizations, with medical history of hypertension, chronic back pain, diabetes, bilateral pulmonary emboli, admitted with AMS. h/o Bilateral lower extremity deep venous thrombosis in 2009. Consulted to psychiatry due to disorganized behavior, visual hallucinations, confusion. However, today on psychiatric evaluation patient is found calm, cooperative, very pleasant. Patient is logical, coherent, relevant in his conversation. Patient says that he has been counting the minutes to go back home. He reports good mood, he says that he is feeling much better now. He is in a very good spirits, with a very good sense of humor throughout the evaluation. Denies depressive symptoms, denies anhedonia, hopelessness, helplessness, he denies suicidal and homicidal ideation, he denies visual and auditory hallucinations. During this evaluation the patient does not seem to be responding to internal stimuli, paranoid, delusional, disorganized. He is fully oriented 3, without any attention deficit, no fluctuation of consciousness or confusion. She reports at most daily use of 1-2 cups of wine. Denies history of withdrawal denies detox, rehabilitation programs. He denies the use of illegal drugs. Review of Systems Constitutional: DENIES: Diaphoretic episodes, Fatigue, Fever, Weight gain, Weight loss, Chills, Dizziness, Change in appetite, Night Sweats Endocrine: DENIES: Heat/cold intolerance, Polydipsia, Polyuria, Polyphagia Eyes: DENIES: Blurred vision, Diplopia, Eye inflammation, Eye pain, Vision loss , Photosensitivity, Double Vision Ears, nose, mouth, throat: DENIES: Tinnitus, Hearing loss, Vertigo, Nasal discharge, Oral lesions, Throat pain, Hoarseness, Ear Pain, Running Nose, Epistaxis, Sinus Pain, Toothache, Odynophagia Respiratory: DENIES: Apneas, Cough, Snoring, Wheezing, Hemoptysis, Sputum production, Shortness of breath Gastrointestinal: DENIES: Abdominal pain, Black stools, Bloody stools, Constipation, Diarrhea, Nausea, Vomiting, Difficulty Swallowing, Anorexia Genitourinary: DENIES: Sexual dysfunction, Urinary frequency, Urinary incontinence, Urgency, Hematuria, Dysuria, Nocturia, Penile Discharge, Testicular Pain, Testicular Swelling Musculoskeletal: DENIES: Joint pain, Muscle aches, Stiffness, Joint Swelling, Back pain, Neck pain Integumentary: DENIES: Abnormal pigmentation, Nail changes, Pruritus, Rash Hematologic/lymphatic: DENIES: Bruising, Lymphadenopathy Immunologic/allergic: DENIES: Eczema, Urticaria Neurologic: DENIES: Abnormal gait, Headache, Localized weakness, Paresthesias, Seizures, Speech Problems, Tremor, Poor Balance Psychiatric: DENIES: Anxiety, Confusion, Mood changes, Depression, Hallucinations, Agitation, Suicidal Ideation, Homicidal Ideation, Delusions Past Family Social History Coded Allergies: No Known Allergies (Verified Allergy, Mild, 02/12/17) Active Scripts Paroxetine (Paxil) 10 Mg Tab, 5 MG PO DAILY for Depression Control, #30 TAB 0 Refills Prov:Lynnette Ibarra PA-C 02/13/17 Reported Medications Ranitidine (Ranitidine) 150 Mg Tab, 150 MG PO DAILY for Heartburn Management, # 30 TAB 0 Refills 02/12/17 Zolpidem (Ambien) 10 Mg Tab, 10 MG PO HS Y for INSOMNIA, TAB 0 Refills 02/12/17 Atenolol (Atenolol) 25 Mg Tab, 25 MG PO DAILY for Blood Pressure Management, # 30 TAB 02/12/17 Lisinopril-Hctz (Lisinopril-Hctz) 20-12.5 Mg Tab, 1 TAB PO BID for Blood Pressure Management, #30 TAB 0 Refills 02/12/17 Tamsulosin (Tamsulosin) 0.4 Mg Cap, 0.4 MG PO HS for Manage Prostate Problems, # 30 CAP 0 Refills 02/12/17 Hydrocodone-Acetaminophen ([place]) 7.5-325 mg Tab, 1 TAB PO BID Y for PAIN, TAB 0 Refills 02/12/17 Verapamil (Verapamil) 120 Mg Tab, 120 MG PO BID, #60 TAB 0 Refills 02/12/17 Gabapentin (Gabapentin) 600 Mg Tab, 600 MG PO TID, #90 TAB 0 Refills 02/12/17 Pravastatin (Pravastatin) 40 Mg Tab, 40 MG PO DAILY for Cholesterol Management, #30 TAB 0 Refills 02/12/[address] (Diclofenac Sodium DR) 75 Mg Tabdr, 75 MG PO BID, #60 TAB 0 Refills 02/12/17 Cyclobenzaprine (Flexeril) 10 Mg Tab, 10 MG PO DAILY for Muscle Spasm, #90 TAB 0 Refills 02/12/17 Discontinued Reported Medications [Soy Samanthain] No Conflict Check, 1200 MG PO DAILY, 0 Refills 08/11/07 Multiple Vitamin (Multivitamin) 1 Tab Tab, 1 TAB PO DAILY, 0 Refills 08/11/07 Vitamin E (Vitamin E-400) 400 Units Cap, 400 UNITS PO DAILY, 0 Refills 08/11/07 Calcium (Calcium) 500 Mg Tab, 500 MG PO DAILY, 0 Refills 08/11/07 Ascorbic Acid (Vitamin C) 500 Mg Tab, 500 MG PO DAILY, 0 Refills 08/11/07 Zolpidem Tartrate (Ambien) 10 Mg Tab, 10 MG PO HS, 0 Refills 08/11/07 Pravachol (Pravachol) 80 Mg Tab, 80 MG PO HS, 0 Refills 08/11/07 Verapamil Hcl (Isoptin Sr) 240 Mg Tabcr, 240 MG PO DAILY, 0 Refills 08/11/07 Paroxetine Hcl (Paxil) 20 Mg Tab, 20 MG PO DAILY, 0 Refills 08/11/07 Diclofenac Sod (Voltaren) 75 Mg Tabec, 75 MG PO BID, 0 Refills 08/11/07 Cyclobenzaprine Hcl (Flexeril) 10 Mg Tab, 10 MG PO HS, 0 Refills 08/11/07 Clonidine Hcl (Tsadiwtb-Ryv-6) 0.1 Mg/24 Hr Patch, 1 PATCH TOP WEEKLY, 0 Refills 08/11/07 Lisinopril/Hctz 10 mg/12.5 mg (Lisinopril/Hctz 10 mg/12.5 mg) 10 mg/12.5 mg Tab , 1 TAB PO BID, 0 Refills 08/11/07 Terazosin Hcl (Hytrin) 5 Mg Cap, 5 MG PO HS, 0 Refills 08/11/07 Current Medications Medications (Trade) Dose Ordered Sig/Ty Route Start Time Stop Time Status Last Admin Sodium Chloride 1,000 ml @ 70 mls/hr [id number] IV 02/12/17 23:11 02/15/17 17:04 (NS Flush) 2 ml UNSCH PRN IV FLUSH 02/12/17 23:15 (NS Flush) 2 ml BID IV FLUSH 02/13/17 09:00 02/16/17 10:08 (Zofran Inj) 4 mg Q6H PRN IVP 02/12/17 23:15 (Tylenol) 650 mg Q6H PRN PO 02/12/17 23:15 (Milk Of Magnesia Liq) 30 ml Q12H PRN PO 02/12/17 23:15 (Flomax) 0.4 mg HS PO 02/13/17 21:00 02/15/17 22:05 (Pepcid) 20 mg DAILY PO 02/13/17 09:00 02/16/17 10:07 (Tenormin) 25 mg DAILY PO 02/13/17 09:00 02/16/17 10:07 (Isoptin) 120 mg BID PO 02/13/17 09:00 02/16/17 10:07 Ceftriaxone Sodium 2000 mg/ Sodium Chloride 100 ml @ 200 mls/hr Q12H IV 02/13/17 04:00 02/16/17 03:42 Ampicillin Sodium 2000 mg/Sodium Chloride 100 ml @ 400 mls/hr Q4H IV 02/13/17 03:00 02/16/17 08:43 Pharmacy Profile Note 0 ml @ 0 mls/hr UNSCH OTHER 02/13/17 02:15 (Catapres) 0.1 mg Q6H PRN PO 02/13/17 04:15 02/16/17 00:20 (D50w (Vial) Inj) 50 ml UNSCH PRN IV PUSH 02/13/17 07:45 (Glucagon Inj) 1 mg UNSCH PRN OTHER 02/13/17 07:45 (NovoLOG SUPPLEMENTAL SCALE) 1 ACHS SLIDING SCALE SQ 02/13/17 08:00 02/15/17 15:51 (Duoneb Neb) 1 ampule Q6HR WHILE AWAKE NEB NEB 02/13/17 14:00 02/16/17 07:55 (Deltasone) 40 mg DAILY PO 02/13/17 12:00 02/18/17 11:59 02/16/17 10:07 (Haldol Inj) 2 mg Q6H PRN IM 02/13/17 17:15 (Duoneb Neb) 1 ampule Q2HR NEB PRN NEB 02/14/17 11:15 Acyclovir Sodium 950 mg/Sodium Chloride 150 ml @ 150 mls/hr Q12HR IV 02/15/17 21:00 02/16/17 10:08 (Xarelto) 15 mg BID PO 02/16/17 09:00 03/09/17 08:59 (Xarelto) 20 mg DAILY PO 03/09/17 09:00 Vancomycin HCl 1750 mg/Sodium Chloride 517.5 ml @ 257.5 mls/ hr Q18H IV 02/17/17 00:00 Miscellaneous Information SPECIFIC LAB TO BE DRAWN:VANCOMYCIN TROUGH DATE TO... ONCE ONCE .XX 02/18/17 11:45 02/18/17 11:46 Family Psych History patient denies family psychiatric history Social History Patient was born and raised in [place], he isn't [place], he is , retired, Physical Exam No EPS, no agitation, no tremors, no stiffness Vital Signs Vital Signs Date Time Temp Pulse Resp B/P (MAP) Pulse Ox O2 Delivery O2 Flow Rate FiO2 02/16/17 08:00 98 02/16/17 08:00 96 Room Air 02/16/17 08:00 99.0 20 200/98 (132) 02/15/17 07:58 2.00 I/O 02/16/17 02/16/17 02/17/17 08:00 16:00 00:00 Intake Total 280 ml Output Total 650 ml Balance -370 ml Lab Results Test 02/15/17 14:29 02/16/17 02:44 02/16/17 05:30 CSF Volume (Tube 1) 2.0 ML CSF Supernatant Color (tube 1) CLEAR CSF Gross Blood (Tube 1) 0 CSF Volume (Tube 2) 1.5 ML CSF Supernatant Color (tube 2) CLEAR CSF Gross Blood (Tube 2) 0 CSF Volume (Tube 3) 1.9 ML CSF Supernatant Color (tube 3) CLEAR CSF Volume (Tube 4) 3.9 ML CSF Supernatant Color (tube 4) CLEAR CSF WBC (Tube 4) 388 /MM3 CSF RBC (Tube 4) 73 /MM3 CSF Neutrophils 6 % CSF Lymphocytes 59 % CSF Monocytes 33 % CSF Eosinophils 1 % CSF Basophils 1 % CSF Differential Comment White Blood Count 8.1 TH/MM3 Red Blood Count 3.62 MIL/MM3 Hemoglobin 11.7 GM/DL Hematocrit 35.0 % Mean Corpuscular Volume 96.7 FL Mean Corpuscular Hemoglobin 32.2 PG Mean Corpuscular Hemoglobin Concent 33.3 % Red Cell Distribution Width 13.5 % Platelet Count 206 TH/MM3 Mean Platelet Volume 8.7 FL Activated Partial Thromboplast Time 58.9 SEC Vancomycin Level Trough 9.0 MCG/ML Date/Time Source Procedure Growth Status 02/15/17 14:29 Cerebral Spinal Fluid Lumbar Puncture Gram Stain - Final Resulted 02/15/17 14:29 Cerebral Spinal Fluid Lumbar Puncture CSF Culture - Preliminary NO GROWTH IN 24 HOURS. Resulted Mental Status Examination Appearance: Appropriate Consciousness: Alert Orientation: x4 Motor Activity: Normal gait Speech: Unremarkable Language: Adequate Fund of Knowledge: Adequate Attention and Concentration: Adequate Memory: Unremarkable Mood: Appropriate Affect: Appropriate Thought Process & Associations: Intact Thought Content: Appropriate Hallucination Type: None Delusion Type: None Suicidal Ideation: No Suicidal Plan: No Suicidal Intention: No Homicidal Ideation: No Homicidal Plan: No Homicidal Intention: No Insight: Adequate Judgment: Adequate Assessment & Plan Problem List: (1) Delirium ICD Codes: R41.0 - Disorientation, unspecified Assessment & Plan: At the moment of this evaluation the patient does not present any concerning, acute, significant neuropsychiatric symptoms that requires an immediate psychiatric intervention. Patient denies depressive symptoms, he denies anxiety, he denies subha and psychosis. Patient denies suicidal and homicidal ideation, he denies visual and auditory hallucinations. Patient is logical, coherent and relevant. Oriented 3. Pleasant, in a good spirits, with a good sense of humor. Seems to me that previously described episode of confusion, visual hallucinations, was is probably the result of his underlying medical illnesses decompensation. Patient doesn't have any criteria for involuntary psychiatric admission. Can continue the Haldol 2 mg IM every 8 hours when necessary agitation and confusion. Brief supportive psychotherapy provided. Consult appreciated. Assessment & Plan Estimated LOS: Everardo Sepulveda MD Feb 16, 2017 11:13
--- NOTE | 2017-02-16 11:45 | HHI.PR ---
Objective Vitals Vital Signs Date Time Temp Pulse Resp B/P (MAP) Pulse Ox O2 Delivery O2 Flow Rate FiO2 02/16/17 08:00 98 02/16/17 08:00 96 Room Air 02/16/17 08:00 99.0 63 20 200/98 (132) 92 02/16/17 07:56 93 02/16/17 04:00 97.4 60 22 158/82 (107) 94 02/16/17 04:00 56 02/16/17 00:00 63 02/16/17 00:00 97.7 60 20 166/80 (108) 97 02/15/17 22:48 Room Air 02/15/17 20:40 93 02/15/17 20:00 99.4 69 20 176/82 (113) 95 02/15/17 20:00 63 02/15/17 16:00 97.8 62 20 169/89 (115) 95 02/15/17 12:00 99.7 71 20 212/82 (125) 97 I/O 02/15/17 02/15/17 02/15/17 02/16/17 02/16/17 02/16/17 07:00 15:00 23:00 07:00 15:00 23:00 Intake Total 689 ml 620 ml 250 ml 280 ml Output Total 650 ml 650 ml Balance 689 ml -30 ml 250 ml -370 ml Intake Oral 360 ml 620 ml 280 ml IV Total 329 ml 250 ml Output Urine Total 650 ml 650 ml # Voids 1 2 # Bowel Movements 3 Result Diagram: 02/16/17 0244 02/15/17 0707 Other Results Imaging Last Impressions Lumbar Puncture Fluoroscopy 02/15/17 0000 Signed Impressions: Service Date/Time: Wednesday, February 15, 2017 13:55 - CONCLUSION: Uncomplicated fluoroscopically guided lumbar puncture with pressures as above. Kj Brooks MD Lower Extremity Ultrasound 02/14/17 0000 Signed Impressions: Service Date/Time: Tuesday, February 14, 2017 15:50 - CONCLUSION: No venous thrombosis of either lower extremity. Davidson Luevano MD CT Angiography 02/13/17 0000 Signed Impressions: Service Date/Time: Monday, February 13, 2017 11:58 - CONCLUSION: 1. Few small scattered right sided pulmonary emboli. 2. No infiltrate or mass. 3. Cardiomegaly coronary artery calcifications. Bruce Middleton MD Brain MRI 02/13/17 0000 Signed Impressions: Service Date/Time: Monday, February 13, 2017 12:22 - CONCLUSION: 1. Chronic ischemic small vessel vasculopathy. 2. No acute infarction. Bruce Middleton MD Head CT 02/12/17 0000 Signed Impressions: Service Date/Time: Sunday, February 12, 2017 21:53 - CONCLUSION: 1. No acute intracranial abnormalities. Ricky Morrow MD Chest X-Ray 02/12/17 0000 Signed Impressions: Service Date/Time: Sunday, February 12, 2017 21:23 - CONCLUSION: No acute disease. Ricky Morrow MD Procedures 02/15- LP A/P Problem List: (1) Encephalopathy ICD Code: G93.40 - Encephalopathy, unspecified Status: Acute (2) HTN (hypertension) ICD Code: I10 - Essential (primary) hypertension (3) Dehydration ICD Code: E86.0 - Dehydration (4) Hyperglycemia ICD Code: R73.9 - Hyperglycemia, unspecified (5) Leukocytosis ICD Code: D72.829 - Elevated white blood cell count, unspecified (6) Hypokalemia ICD Code: E87.6 - Hypokalemia Status: Acute (7) Respiratory distress ICD Code: R06.03 - Acute respiratory distress Leora Burnett MD Feb 16, 2017 11:44
--- NOTE | 2017-02-16 11:58 | HHI.PR ---
Subjective Remarks saw patient with his daughter in the room awake and alert, no headaches, nausea or vomiting, no neck pains daughter is a Gyne Oncology nurse states that patient is baseline- complete turnaround she is requesting for his Ambien- on this on scheduled hs for sleep Objective Vitals Vital Signs Date Time Temp Pulse Resp B/P (MAP) Pulse Ox O2 Delivery O2 Flow Rate FiO2 02/16/17 08:00 98 02/16/17 08:00 96 Room Air 02/16/17 08:00 99.0 63 20 200/98 (132) 92 02/16/17 07:56 93 02/16/17 04:00 97.4 60 22 158/82 (107) 94 02/16/17 04:00 56 02/16/17 00:00 63 02/16/17 00:00 97.7 60 20 166/80 (108) 97 02/15/17 22:48 Room Air 02/15/17 20:40 93 02/15/17 20:00 99.4 69 20 176/82 (113) 95 02/15/17 20:00 63 02/15/17 16:00 97.8 62 20 169/89 (115) 95 02/15/17 12:00 99.7 71 20 212/82 (125) 97 I/O 02/15/17 02/15/17 02/15/17 02/16/17 02/16/17 02/16/17 07:00 15:00 23:00 07:00 15:00 23:00 Intake Total 689 ml 620 ml 250 ml 280 ml Output Total 650 ml 650 ml Balance 689 ml -30 ml 250 ml -370 ml Intake Oral 360 ml 620 ml 280 ml IV Total 329 ml 250 ml Output Urine Total 650 ml 650 ml # Voids 1 2 # Bowel Movements 3 Result Diagram: 02/16/17 0244 02/15/17 0707 Imaging Last Impressions Lumbar Puncture Fluoroscopy 02/15/17 0000 Signed Impressions: Service Date/Time: Wednesday, February 15, 2017 13:55 - CONCLUSION: Uncomplicated fluoroscopically guided lumbar puncture with pressures as above. Kj Brooks MD Lower Extremity Ultrasound 02/14/17 0000 Signed Impressions: Service Date/Time: Tuesday, February 14, 2017 15:50 - CONCLUSION: No venous thrombosis of either lower extremity. Davidson Luevano MD CT Angiography 02/13/17 0000 Signed Impressions: Service Date/Time: Monday, February 13, 2017 11:58 - CONCLUSION: 1. Few small scattered right sided pulmonary emboli. 2. No infiltrate or mass. 3. Cardiomegaly coronary artery calcifications. Bruce Middleton MD Brain MRI 02/13/17 0000 Signed Impressions: Service Date/Time: Monday, February 13, 2017 12:22 - CONCLUSION: 1. Chronic ischemic small vessel vasculopathy. 2. No acute infarction. Bruce Middleton MD Head CT 02/12/17 0000 Signed Impressions: Service Date/Time: Sunday, February 12, 2017 21:53 - CONCLUSION: 1. No acute intracranial abnormalities. Ricky Morrow MD Chest X-Ray 02/12/17 0000 Signed Impressions: Service Date/Time: Sunday, February 12, 2017 21:23 - CONCLUSION: No acute disease. Ricky Morrow MD Objective Remarks awake and alert, oriented x 3 anicteric, pupils equally reactive no nuchal rigidity no facial asymmetry lungs clear regular rhythm abdomen-soft, nontender extrmeities no edema neuro exam- non focal Procedures 02/15- LP A/P Problem List: (1) Encephalopathy ICD Code: G93.40 - Encephalopathy, unspecified Status: Acute (2) HTN (hypertension) ICD Code: I10 - Essential (primary) hypertension (3) Dehydration ICD Code: E86.0 - Dehydration (4) Hyperglycemia ICD Code: R73.9 - Hyperglycemia, unspecified (5) Leukocytosis ICD Code: D72.829 - Elevated white blood cell count, unspecified (6) Hypokalemia ICD Code: E87.6 - Hypokalemia Status: Acute (7) Respiratory distress ICD Code: R06.03 - Acute respiratory distress Assessment and Plan 76 yrs old man with: Encephalopathy: - per family near baseline today- Viral Encephalitis CT Head w/ no acute findings. No obvious source of infection, CXR w/ no acute findings, U/a negative. Urine Drug Screen negative. LP results with predominant lymphocytosis Neurology. ff ID service consulted. started On IV Acyclovir- duration of IV therapy will DC IV antibiotics- Vancomycin and Ampicillin- ID consult pending get PT consult Hallucinations visual and auditory. --resolved PE CTA reviewed shows few small scattered right sided pulmonary emboli. started on Xarelto Hematology ff Continue Duo Neb schedule and PRN, Prednisone 40mg Daily Leukocytosis: Resolved Hyperglycemia: Hgb A1c pending. Sliding scale w/ Accu-Cheks. Hypokalemia: K+ 2.9 on admission s/p replacement monitor and replace as needed. recheck BMP NOW Hypertension: Labile BP; Currently on verapamil 120 mg BID, Atenolol 25mg daily DVT Prophylaxis: SCD/Teds CM consulted for DC plan Discussed with the daughter- nurse at bedside Increase activity ID consult pending Leora Burnett MD Feb 16, 2017 11:58
[2017-02-16 11:59] LABS: HSV 1,PCR Positive (Negative)
--- NOTE | 2017-02-16 14:00 | MB ---
cc: BARBARA MULTANI MD DATE OF CONSULTATION: 02/16/2017 REQUESTING PHYSICIAN: Dr. Jones. REASON FOR CONSULTATION: Encephalitis. HISTORY OF PRESENT ILLNESS: This is a 76 year-old white male who presents to emergency department with altered mental status on 02/12/2017, the patient developed nausea and vomiting on the night prior to being admitted. The family states that he was having flu like symptoms also. They report that he had dysarthria. The patient was evaluated in the emergency department and admitted to the hospital. He was noted to have waxing, waning and alternation in mental status. He underwent lumbar puncture and the cerebrospinal fluid revealed 388 white cells, 59% lymphocytes, 33% monocytes. The glucose and protein is not available. 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 The patients daughter is at bedside, he states that he is back to his baseline as far as mental status is considered. The patient is awake and alert, he is oriented times three. He denies headache to me. His daughter reports that he had a slight headache during this illness. He is already receiving IV Acyclovir and had a temperature of 101.0 degrees on 02/13/2017. His temperature is now down to normal. His white count was also elevated at 13.1 on 02/13/2017 and it is now down to normal. ALLERGIES NO KNOWN DRUG ALLERGIES MEDICATIONS: Acyclovir Xarelto Ambien DuoNeb Flomax Pepcid Atenolol Verapamil SOCIAL HISTORY: Alcohol, no tobacco, no illicit drugs. FAMILY HISTORY: Noncontributory REVIEW OF SYSTEMS Negative on ten point review of systems. PHYSICAL EXAMINATION: IN GENERAL: This is a well developed male who is awake, alert and in no acute distress. VITAL SIGNS: Temperature 98.4, blood pressure 105/61, Respirations 18, heart rate 106. HEAD, EYES, EARS, NOSE, AND THROAT: Atraumatic, extraocular movement grossly intact, pupils reactive to light. No icterus. Oropharynx - moist , poor dentition. NECK: The neck is supple without adenopathy. LUNGS: Clear breath sounds, bilateral. HEART: Regular S1, S2 without murmurs, rubs or gallops. ABDOMEN: Bowel sounds are present, Soft, no tenderness appreciated. RECTUM: Not preformed. EXTREMITIES: No clubbing, cyanosis or edema. SKIN: No rash NEUROLOGIC: No gross focal findings. PSYCHIATRIC: The patient is calm and cooperative. LABORATORY FINDINGS: White blood count 0.1, platelets 206, creatinine 1.11, blood urea nitrogen 60, sodium 140. MRI of the brain reveals; chronic ischemic small vessels, vasculopathy. Head CT showed no acute intracranial abnormalities. Chest x-ray shows no acute disease. 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 RECOMMENDATIONS: Continue to treat the patient with Intravenous Acyclovir because of the encephalitis which needs to be treated for a period of at least 14 days with acyclovir. His mental status appears to be back to baseline. The dose may need to be adjusted as his renal function improves. Thank you for this consultation. The patients progress will be monitored and further recommendations will be given upon follow up if necessary. Barbara Multani MD FD/felix /12:36 PM /12:49 PM MTDLisa
[2017-02-16 15:14] LABS: BICARBONATE 22.5 MEQ/L (21.0-32.0); POTASSIUM 3.3 MEQ/L (3.5-5.1)
[2017-02-16] MEDS: TAMSULOSIN HCL 0.4 MG CAP PO SCH (20:46)
[2017-02-16] MEDS: ZOLPIDEM TARTRATE 10 MG TAB PO SCH (20:47)
[2017-02-16] MEDS: SODIUM CHLOR 0.9% 1000 ML INJ 1,000 ML IV SCH (20:48)
[2017-02-17] VITALS (9 sets, daily range): BP systolic 170–222; BP diastolic 84–104; PULSE 56–74; RESP 18–28; TEMP 98.6–99.7; O2SAT 92–97
[2017-02-17] MEDS ORDERED: VANCOMYCIN INJ 1,750 MG in SODIUM CHLORID 0.9% 500 ML INJ 500 ML IV SCH ×2
[2017-02-17 00:29] LABS: ENTEROVIRUS PCR RESULT Negative (Negative); ENTEROVIRUS PCR SPEC SOURCE CSF
[2017-02-17] MEDS: cloNIDine HCL 0.1 MG TAB PO PRN ×2 (04:11→20:35)
[2017-02-17] MEDS: INSULIN ASPART SUPPLEMENTAL SCALE SQ SCH ×4 (08:00→20:36)
[2017-02-17] MEDS: RESP: ALBUTEROL 2.5 MG/IPRATROPIUM 0.5 MG NEB (SCH) NEB ×2 (08:02→12:13)
[2017-02-17] MEDS: ACYCLOVIR IV SCH ×2 (08:07→20:37)
[2017-02-17] MEDS: SODIUM CHLORIDE 0.9% FLUSH 10 ML FLUSH IV FLUSH SCH ×2 (08:07→20:37)
[2017-02-17] MEDS: SODIUM CHLORIDE 0.9% IV SCH ×2 (08:07→20:37)
--- NOTE | 2017-02-17 08:29 | HHI.PR ---
Subjective Remarks awake and alert, denies any headaches, nausea or vomiting or neck pain Objective Vitals Vital Signs Date Time Temp Pulse Resp B/P (MAP) Pulse Ox O2 Delivery O2 Flow Rate FiO2 02/17/17 08:02 95 Nasal Cannula 2.00 02/17/17 04:00 98.9 60 22 175/90 (118) 94 02/17/17 04:00 98.9 60 22 175/90 (118) 94 02/17/17 04:00 59 02/17/17 04:00 Nasal Cannula 2.00 02/17/17 00:00 99.7 70 18 182/84 (116) 97 02/17/17 00:00 57 02/17/17 00:00 Nasal Cannula 2.00 02/16/17 20:00 Nasal Cannula 2.00 02/16/17 20:00 65 02/16/17 20:00 98.7 68 20 181/95 (123) 96 02/16/17 19:32 94 Nasal Cannula 2.00 02/16/17 16:00 97.1 61 22 167/97 (120) 92 02/16/17 12:25 94 Nasal Cannula 2.00 02/16/17 12:00 98.4 61 20 142/68 (92) 91 I/O 02/16/17 02/16/17 02/16/17 02/17/17 02/17/17 02/17/17 07:00 15:00 23:00 07:00 15:00 23:00 Intake Total 280 ml 835.5 ml 430 ml Output Total 650 ml 1150 ml 1200 ml Balance -370 ml 835.5 ml -720 ml -1200 ml Intake Oral 280 ml IV Total 835.5 ml 430 ml Output Urine Total 650 ml 1150 ml 1200 ml # Voids 3 3 # Bowel Movements 3 2 Result Diagram: 02/16/17 0244 02/16/17 1325 Imaging Last Impressions Lumbar Puncture Fluoroscopy 02/15/17 0000 Signed Impressions: Service Date/Time: Wednesday, February 15, 2017 13:55 - CONCLUSION: Uncomplicated fluoroscopically guided lumbar puncture with pressures as above. Kj Brooks MD Lower Extremity Ultrasound 02/14/17 0000 Signed Impressions: Service Date/Time: Tuesday, February 14, 2017 15:50 - CONCLUSION: No venous thrombosis of either lower extremity. Davidson Luevano MD CT Angiography 02/13/17 0000 Signed Impressions: Service Date/Time: Monday, February 13, 2017 11:58 - CONCLUSION: 1. Few small scattered right sided pulmonary emboli. 2. No infiltrate or mass. 3. Cardiomegaly coronary artery calcifications. Bruce Middleton MD Brain MRI 02/13/17 0000 Signed Impressions: Service Date/Time: Monday, February 13, 2017 12:22 - CONCLUSION: 1. Chronic ischemic small vessel vasculopathy. 2. No acute infarction. Bruce Middleton MD Head CT 02/12/17 0000 Signed Impressions: Service Date/Time: Sunday, February 12, 2017 21:53 - CONCLUSION: 1. No acute intracranial abnormalities. Ricky Morrow MD Chest X-Ray 02/12/17 0000 Signed Impressions: Service Date/Time: Sunday, February 12, 2017 21:23 - CONCLUSION: No acute disease. Ricky Morrow MD Objective Remarks awake and alert, oriented x 3 anicteric, pupils equally reactive no nuchal rigidity no facial asymmetry lungs clear regular rhythm abdomen-soft, nontender extremities no edema neuro exam- non focal Procedures 02/15- LP A/P Problem List: (1) Encephalopathy ICD Code: G93.40 - Encephalopathy, unspecified Status: Acute (2) HTN (hypertension) ICD Code: I10 - Essential (primary) hypertension (3) Dehydration ICD Code: E86.0 - Dehydration (4) Hyperglycemia ICD Code: R73.9 - Hyperglycemia, unspecified (5) Leukocytosis ICD Code: D72.829 - Elevated white blood cell count, unspecified (6) Hypokalemia ICD Code: E87.6 - Hypokalemia Status: Acute (7) Respiratory distress ICD Code: R06.03 - Acute respiratory distress Assessment and Plan 76 yrs old man with: Viral Encephalitis Encephalopathy: - improved- CT Head w/ no acute findings. No obvious source of infection, CXR w/ no acute findings, U/a negative. Urine Drug Screen negative. LP results with predominant lymphocytosis Neurology. ff ID service consulted- on IV Acyclovir get PT consult Hallucinations visual and auditory. --resolved PE CTA reviewed shows few small scattered right sided pulmonary emboli. started on Xarelto Hematology ff Continue Duo Neb schedule and PRN, Prednisone 40mg Daily- pe Pulmonary continue on NC -patient gets short of breath with activity- will get a walk test- for home Leukocytosis: Resolved Hyperglycemia: Hgb A1c pending. Sliding scale w/ Accu-Cheks. Hypokalemia: K+ 2.9 on admission s/p replacement monitor and replace as needed. Hypertension: Labile BP; Currently on verapamil 120 mg BID, Atenolol 25mg daily was on MIGUEL ANGEL/HCTz as OP we will restart his Lisinopril 20 mg po daily check BMP DVT Prophylaxis: SCD/Teds CM consulted for DC plan 02/16 Discussed with the daughter- nurse at bedside Increase activity Leora Burnett MD Feb 17, 2017 08:29
--- NOTE | 2017-02-17 08:47 | HHI.PR ---
Review/Management Diagnosis Laboratory Tests Test 02/13/17 14:00 02/13/17 15:14 02/13/17 18:15 02/13/17 18:48 Blood Gas Puncture Site RT RADIAL Blood Gas Patient Temperature 37.0 Blood Gas HCO3 25 mmol/L Blood Gas Base Excess 1.3 mmol/L Blood Gas Oxygen Saturation 95 % Arterial Blood pH 7.47 Arterial Blood Partial Pressure CO2 35 mmHg Arterial Blood Partial Pressure O2 83 mmHG Arterial Blood Oxygen Content 17.4 Vol % Arterial Blood Carboxyhemoglobin 1.2 % Arterial Blood Methemoglobin 0.8 % Blood Gas Hemoglobin 13.0 G/DL Oxygen Delivery Device NASAL CANNULA Blood Gas Liter Flow 2 L/M Ammonia 53 MCMOL/L Prothrombin Time 11.9 SEC Prothromb Time International Ratio 1.2 RATIO Activated Partial Thromboplast Time 23.1 SEC White Blood Count 13.1 TH/MM3 Red Blood Count 3.83 MIL/MM3 Hemoglobin 12.4 GM/DL Hematocrit 37.5 % Mean Corpuscular Volume 98.0 FL Mean Corpuscular Hemoglobin 32.5 PG Mean Corpuscular Hemoglobin Concent 33.1 % Red Cell Distribution Width 13.5 % Platelet Count 204 TH/MM3 Mean Platelet Volume 8.5 FL Test 02/14/17 03:26 02/14/17 08:45 02/14/17 08:47 Activated Partial Thromboplast Time 104.9 SEC 42.4 SEC White Blood Count 11.5 TH/MM3 Red Blood Count 3.80 MIL/MM3 Hemoglobin 12.4 GM/DL Hematocrit 36.6 % Mean Corpuscular Volume 96.4 FL Mean Corpuscular Hemoglobin 32.7 PG Mean Corpuscular Hemoglobin Concent 33.9 % Red Cell Distribution Width 13.6 % Platelet Count 192 TH/MM3 Mean Platelet Volume 8.3 FL Neutrophils (%) (Auto) 77.8 % Lymphocytes (%) (Auto) 10.5 % Monocytes (%) (Auto) 11.5 % Eosinophils (%) (Auto) 0.0 % Basophils (%) (Auto) 0.2 % Neutrophils # (Auto) 8.9 TH/MM3 Lymphocytes # (Auto) 1.2 TH/MM3 Monocytes # (Auto) 1.3 TH/MM3 Eosinophils # (Auto) 0.0 TH/MM3 Basophils # (Auto) 0.0 TH/MM3 CBC Comment DIFF FINAL Differential Comment Blood Urea Nitrogen 23 MG/DL Creatinine 1.32 MG/DL Random Glucose 136 MG/DL Calcium Level 8.7 MG/DL Magnesium Level 2.4 MG/DL Sodium Level 136 MEQ/L Potassium Level 3.2 MEQ/L Chloride Level 101 MEQ/L Carbon Dioxide Level 27.2 MEQ/L Anion Gap 8 MEQ/L Estimat Glomerular Filtration Rate 53 ML/MIN Ammonia 16 MCMOL/L Last [address] Angiography 02/13/17 0000 Signed Impressions: Service Date/Time: Monday, February 13, 2017 11:58 - CONCLUSION: 1. Few small scattered right sided pulmonary emboli. 2. No infiltrate or mass. 3. Cardiomegaly coronary artery calcifications. Bruce Middleton MD Brain MRI 02/13/17 0000 Signed Impressions: Service Date/Time: Monday, February 13, 2017 12:22 - CONCLUSION: 1. Chronic ischemic small vessel vasculopathy. 2. No acute infarction. Bruce Middleton MD Diagnosis/Plan: (1) Encephalitis ICD Codes: G04.90 - Encephalitis and encephalomyelitis, unspecified Status: Acute Plan: wbc >300, predominant lymphs +hsv pcr. HSV encephalitis looks much better today; daughter feels close to baseline recs iv acyclovir duration per ID. will likely need a picc line and home health for daily med d/c planning from neuro; can f/u outpatient in 2-3 weeks no driving (2) Encephalopathy ICD Codes: G93.40 - Encephalopathy, unspecified Status: Acute (3) Altered mental status ICD Codes: R41.82 - Altered mental status, unspecified Status: Acute (4) Pulmonary emboli ICD Codes: I26.99 - Other pulmonary embolism without acute cor pulmonale Status: Acute Plan: on oac Subjective Subjective Comments No acute events reported No headache No chest pain No dyspnea Active Medications Current Medications Medications (Trade) Dose Ordered Sig/Ty Route Start Time Stop Time Status Last Admin Sodium Chloride 1,000 ml @ 70 mls/hr [id number] IV 02/12/17 23:11 02/15/17 17:04 (NS Flush) 2 ml UNSCH PRN IV FLUSH 02/12/17 23:15 (NS Flush) 2 ml BID IV FLUSH 02/13/17 09:00 02/17/17 08:07 (Zofran Inj) 4 mg Q6H PRN IVP 02/12/17 23:15 (Tylenol) 650 mg Q6H PRN PO 02/12/17 23:15 (Milk Of Magnesia Liq) 30 ml Q12H PRN PO 02/12/17 23:15 (Flomax) 0.4 mg HS PO 02/13/17 21:00 02/16/17 20:46 (Pepcid) 20 mg DAILY PO 02/13/17 09:00 02/16/17 10:07 (Tenormin) 25 mg DAILY PO 02/13/17 09:00 02/16/17 10:07 (Isoptin) 120 mg BID PO 02/13/17 09:00 02/16/17 20:47 (Catapres) 0.1 mg Q6H PRN PO 02/13/17 04:15 02/17/17 04:11 (D50w (Vial) Inj) 50 ml UNSCH PRN IV PUSH 02/13/17 07:45 (Glucagon Inj) 1 mg UNSCH PRN OTHER 02/13/17 07:45 (NovoLOG SUPPLEMENTAL SCALE) 1 ACHS SLIDING SCALE SQ 02/13/17 08:00 02/16/17 20:49 (Duoneb Neb) 1 ampule Q6HR WHILE AWAKE NEB NEB 02/13/17 14:00 02/17/17 08:02 (Deltasone) 40 mg DAILY PO 02/13/17 12:00 02/18/17 11:59 02/16/17 10:07 (Haldol Inj) 2 mg Q6H PRN IM 02/13/17 17:15 (Duoneb Neb) 1 ampule Q2HR NEB PRN NEB 02/14/17 11:15 Acyclovir Sodium 950 mg/Sodium Chloride 150 ml @ 150 mls/hr Q12HR IV 02/15/17 21:00 02/17/17 08:07 (Xarelto) 15 mg BID PO 02/16/17 09:00 03/09/17 08:59 02/16/17 20:47 (Xarelto) 20 mg DAILY PO 03/09/17 09:00 Miscellaneous Information SPECIFIC LAB TO BE DRAWN:VANCOMYCIN TROUGH DATE TO... ONCE ONCE .XX 02/18/17 11:45 02/18/17 11:46 (Ambien) 10 mg HS PO 02/16/17 21:00 02/16/17 20:47 (Prinivil) 20 mg DAILY PO 02/17/17 09:00 Allergies Allergies Coded Allergies No Known Allergies (Verified Allergy, Mild, 02/12/17) Review of Systems All other ROS: ROS reviewed as documented in chart Exam I&O / VS Vital Signs Date Time Temp Pulse Resp B/P (MAP) Pulse Ox O2 Delivery O2 Flow Rate FiO2 02/17/17 08:02 95 Nasal Cannula 2.00 02/17/17 04:00 98.9 60 22 175/90 (118) 94 02/17/17 04:00 98.9 60 22 175/90 (118) 94 02/17/17 04:00 59 02/17/17 04:00 Nasal Cannula 2.00 02/17/17 00:00 99.7 70 18 182/84 (116) 97 02/17/17 00:00 57 02/17/17 00:00 Nasal Cannula 2.00 02/16/17 20:00 Nasal Cannula 2.00 02/16/17 20:00 65 02/16/17 20:00 98.7 68 20 181/95 (123) 96 02/16/17 19:32 94 Nasal Cannula 2.00 02/16/17 16:00 97.1 61 22 167/97 (120) 92 02/16/17 12:25 94 Nasal Cannula 2.00 02/16/17 12:00 98.4 61 20 142/68 (92) 91 General: Alert and Oriented, No acute distress Eye: PERRL, EOMI Cardiology: Normal rate Musculoskeletal: ROM Neurologic: Alert, Normal motor, No focal defects, CN II-XII intact Psychiatric: Cooperative, Appropriate mood & affect, Normal judgement Exam Comments looks well, ox 3, recognizes me, appropriate, pres Trump, follows, pleasant, eomi, face sym, neck supple, felipe to gravity Objective Micro and Labs Laboratory Tests Test 02/16/17 13:25 Blood Urea Nitrogen 12 Creatinine 1.04 Random Glucose 142 Calcium Level 8.3 Sodium Level 135 Potassium Level 3.3 Chloride Level 104 Carbon Dioxide Level 22.5 Anion Gap 9 Estimat Glomerular Filtration Rate 69 Date/Time Source Procedure Growth Status 02/15/17 14:29 Cerebral Spinal Fluid Lumbar Puncture Gram Stain - Final Resulted 02/15/17 14:29 Cerebral Spinal Fluid Lumbar Puncture CSF Culture - Preliminary NO GROWTH IN 24 HOURS. Resulted Problem Qualifiers (1) Altered mental status: Qualified Codes: R41.0 - Disorientation, unspecified Virgilio Jones MD Feb 17, 2017 08:47
[2017-02-17 10:17] LABS: BICARBONATE 28.6 MEQ/L (21.0-32.0); POTASSIUM 3.1 MEQ/L (3.5-5.1)
--- NOTE | 2017-02-17 10:59 | PD.ONC.PN ---
Subjective Subjective Remarks Tmax 99.7 overnight Patient very anxious to go home No bleeding noted Objective Data Date Time Temp Pulse Resp B/P (MAP) Pulse Ox O2 Delivery O2 Flow Rate FiO2 02/17/17 08:02 95 Nasal Cannula 2.00 02/17/17 08:00 98.8 67 20 194/95 (128) 94 02/17/17 04:00 98.9 60 22 175/90 (118) 94 02/17/17 04:00 98.9 60 22 175/90 (118) 94 02/17/17 04:00 59 02/17/17 04:00 Nasal Cannula 2.00 02/17/17 00:00 99.7 70 18 182/84 (116) 97 02/17/17 00:00 57 02/17/17 00:00 Nasal Cannula 2.00 02/16/17 20:00 Nasal Cannula 2.00 02/16/17 20:00 65 02/16/17 20:00 98.7 68 20 181/95 (123) 96 02/16/17 19:32 94 Nasal Cannula 2.00 02/16/17 16:00 97.1 61 22 167/97 (120) 92 02/16/17 12:25 94 Nasal Cannula 2.00 02/16/17 12:00 98.4 61 20 142/68 (92) 91 02/17/17 02/17/17 02/17/17 07:00 15:00 23:00 Output Total 1200 ml Balance -1200 ml Result Diagram: 02/16/17 0244 02/17/17 0812 Laboratory Results Laboratory Tests Test 02/16/17 13:25 02/17/17 08:12 Blood Urea Nitrogen 12 MG/DL 13 MG/DL Creatinine 1.04 MG/DL 0.99 MG/DL Random Glucose 142 MG/DL 96 MG/DL Calcium Level 8.3 MG/DL 8.7 MG/DL Sodium Level 135 MEQ/L 136 MEQ/L Potassium Level 3.3 MEQ/L 3.1 MEQ/L Chloride Level 104 MEQ/L 100 MEQ/L Carbon Dioxide Level 22.5 MEQ/L 28.6 MEQ/L Anion Gap 9 MEQ/L 7 MEQ/L Estimat Glomerular Filtration Rate 69 ML/MIN 73 ML/MIN Culture Results Microbiology Date/Time Source Procedure Growth Status 02/15/17 14:29 Cerebral Spinal Fluid Lumbar Puncture Gram Stain - Final Resulted 02/15/17 14:29 Cerebral Spinal Fluid Lumbar Puncture CSF Culture - Preliminary NO GROWTH IN 48 HOURS. Resulted Administered Medications Medications (Trade) Dose Ordered Sig/Ty Route PRN Reason Start Time Stop Time Status Last Admin Dose Admin Sodium Chloride (NS Flush) 2 ml BID IV FLUSH 02/13/17 09:00 02/17/17 08:07 Tamsulosin HCl (Flomax) 0.4 mg HS PO 02/13/17 21:00 02/16/17 20:46 Famotidine (Pepcid) 20 mg DAILY PO 02/13/17 09:00 02/16/17 10:07 Atenolol (Tenormin) 25 mg DAILY PO 02/13/17 09:00 02/16/17 10:07 Verapamil HCl (Isoptin) 120 mg BID PO 02/13/17 09:00 02/16/17 20:47 Clonidine (Catapres) 0.1 mg Q6H PRN PO SEE LABEL COMMENTS 02/13/17 04:15 02/17/17 04:11 Insulin Aspart (NovoLOG SUPPLEMENTAL SCALE) 1 ACHS SLIDING SCALE SQ 02/13/17 08:00 02/16/17 20:49 Albuterol/ Ipratropium (Duoneb Neb) 1 ampule Q6HR WHILE AWAKE NEB NEB 02/13/17 14:00 02/17/17 08:02 Prednisone (Deltasone) 40 mg DAILY PO 02/13/17 12:00 02/18/17 11:59 02/16/17 10:07 Acyclovir Sodium 950 mg/Sodium Chloride 150 ml @ 150 mls/hr Q12HR IV 02/15/17 21:00 02/17/17 08:07 Rivaroxaban (Xarelto) 15 mg BID PO 02/16/17 09:00 03/09/17 08:59 02/16/17 20:47 Zolpidem Tartrate (Ambien) 10 mg HS PO 02/16/17 21:00 02/16/17 20:47 Objective Remarks GENERAL: Older male, resting in bed asleep in no acute distress. Awakens easily to verbal stimuli SKIN: Warm and dry. Few bruises noted to upper extremities HEAD: Normocephalic. EYES: No injection or drainage. NECK: Supple, trachea midline. CARDIOVASCULAR: Regular rate and rhythm without murmurs. RESPIRATORY: Clear anteriorly. Breathing unlabored. GASTROINTESTINAL: Abdomen soft, non-tender, nondistended. EXTREMITIES: No cyanosis, or edema. MUSCULOSKELETAL: Adequate muscle tone. NEUROLOGICAL: No obvious focal deficit. Awake, alert, and oriented x3. Assessment/Plan Problem List: (1) Pulmonary emboli ICD Codes: I26.99 - Other pulmonary embolism without acute cor pulmonale Status: Acute Plan: --patient completed LP, start Xarelto 15mg po BID x 21 days and then switch to 20mg daily. F/u with PCP. --CTA noted a few small scattered thrombus in the right lung. --patient has a history of bilateral lower extremity deep venous thrombosis around 2009. At that time, he had IVC filter placement --was on coumadin for about eight months and was switched to Xarelto, which he continued for about a year and a half. He had seen a wire temperer at that time and Xarelto was stopped. --now has small right pulmonary embolism. --pulmonary embolism could be emboli from clots around the IVC filter --LE U/S shows no DVT (2) Altered mental status ICD Codes: R41.82 - Altered mental status, unspecified Status: Acute Plan: --came in with fever, nausea, vomiting, mild headache. -- mental status has improved. CSF GS pending. --neurology following and LP done yesterday. Assessment 76y/o male with bilateral pulmonary emboli, admitted with AMS h/o Bilateral lower extremity deep venous thrombosis in 2009. Hypertension. Chronic back pain. Depression. Diabetes, diet-controlled. Plan 1. Clear for discharge from hematology standpoint 2. PCP to manage anticoagulation outpatient 3. Monitor for bleeding Attending Statement The exam, history, and the medical decision-making described in the above note were completed with the assistance of the mid-level provider. I reviewed and agree with the findings presented. I attest that I had a [id number] encounter with the patient on the same day, and personally performed and documented my assessment and findings in the medical record. No headache, improving with acyclovir. No CP. No bleeding. Continue Xarelto and f/u PCP. Discussed with patient and his . Problem Qualifiers (1) Altered mental status: Qualified Codes: R41.0 - Disorientation, unspecified BirdKimmy Feb 17, 2017 10:59 Eduardo Sanches MD Feb 17, 2017 16:15
[2017-02-17] MEDS: predniSONE 20 MG TAB PO SCH (11:05)
[2017-02-17] MEDS: RIVAROXABAN 15 MG TAB PO SCH ×2 (11:05→20:35)
[2017-02-17] MEDS: ATENOLOL 25 MG TAB PO SCH (11:05)
[2017-02-17] MEDS: FAMOTIDINE 20 MG TAB PO SCH (11:05)
[2017-02-17] MEDS: VERAPAMIL HCL 120 MG TAB PO SCH ×2 (11:05→20:35)
[2017-02-17] MEDS: LISINOPRIL 20 MG TAB PO SCH (11:09)
[2017-02-17] MEDS ORDERED: POTASSIUM CHLORIDE 25 MEQ EFFERVESCENT TAB PO ONE (11:30)
--- NOTE | 2017-02-17 12:50 | HHI.IDPN ---
Note Infectious Disease Note Patient feels okay. Denies YOON. Speech fluent. Afebrile. ALLERGIES NO KNOWN DRUG ALLERGIES MEDICATIONS: Current Medications Medications (Trade) Dose Ordered Sig/Ty Route PRN Reason Start Time Stop Time Status Last Admin Dose Admin Sodium Chloride (NS Flush) 2 ml UNSCH PRN IV FLUSH FLUSH AFTER USING IV ACCESS 02/12/17 23:15 Sodium Chloride (NS Flush) 2 ml BID IV FLUSH 02/13/17 09:00 02/17/17 08:07 Ondansetron HCl (Zofran Inj) 4 mg Q6H PRN IVP NAUSEA OR VOMITING 02/12/17 23:15 Acetaminophen (Tylenol) 650 mg Q6H PRN PO FEVER/PAIN SCALE 1 TO 2 02/12/17 23:15 Magnesium Hydroxide (Milk Of Amrik Liq) 30 ml Q12H PRN PO Mild constipation 02/12/17 23:15 Tamsulosin HCl (Flomax) 0.4 mg HS PO 02/13/17 21:00 02/16/17 20:46 Famotidine (Pepcid) 20 mg DAILY PO 02/13/17 09:00 02/17/17 11:05 Atenolol (Tenormin) 25 mg DAILY PO 02/13/17 09:00 02/17/17 11:05 Verapamil HCl (Isoptin) 120 mg BID PO 02/13/17 09:00 02/17/17 11:05 Clonidine (Catapres) 0.1 mg Q6H PRN PO SEE LABEL COMMENTS 02/13/17 04:15 02/17/17 04:11 Dextrose (D50w (Vial) Inj) 50 ml UNSCH PRN IV PUSH HYPOGLYCEMIA-SEE COMMENTS 02/13/17 07:45 Glucagon (Glucagon Inj) 1 mg UNSCH PRN OTHER HYPOGLYCEMIA-SEE COMMENTS 02/13/17 07:45 Insulin Aspart (NovoLOG SUPPLEMENTAL SCALE) 1 ACHS SLIDING SCALE SQ 02/13/17 08:00 02/16/17 20:49 Albuterol/ Ipratropium (Duoneb Neb) 1 ampule Q6HR WHILE AWAKE NEB NEB 02/13/17 14:00 02/17/17 12:13 Prednisone (Deltasone) 40 mg DAILY PO 02/13/17 12:00 02/18/17 11:59 02/17/17 11:05 Haloperidol Lactate (Haldol Inj) 2 mg Q6H PRN IM agitation 02/13/17 17:15 Albuterol/ Ipratropium (Duoneb Neb) 1 ampule Q2HR NEB PRN NEB sob/wheezing 02/14/17 11:15 Acyclovir Sodium 950 mg/Sodium Chloride 150 ml @ 150 mls/hr Q12HR IV 02/15/17 21:00 02/17/17 08:07 Rivaroxaban (Xarelto) 15 mg BID PO 02/16/17 09:00 03/09/17 08:59 02/17/17 11:05 Rivaroxaban (Xarelto) 20 mg DAILY PO 03/09/17 09:00 Miscellaneous Information SPECIFIC LAB TO BE DRAWN:VANCOMYCIN TROUGH DATE TO... ONCE ONCE .XX 02/18/17 11:45 02/18/17 11:46 Zolpidem Tartrate (Ambien) 10 mg HS PO 02/16/17 21:00 02/16/17 20:47 Lisinopril (Prinivil) 20 mg DAILY PO 02/17/17 09:00 02/17/17 11:09 Potassium Chloride (KCl) 20 meq Q12HR PO 02/17/17 21:00 OBJECTIVE: Vital Signs Date Time Temp Pulse Resp B/P (MAP) Pulse Ox O2 Delivery O2 Flow Rate FiO2 02/17/17 08:02 95 Nasal Cannula 2.00 02/17/17 08:00 98.8 67 20 194/95 (128) 94 02/17/17 04:00 98.9 60 22 175/90 (118) 94 02/17/17 04:00 98.9 60 22 175/90 (118) 94 02/17/17 04:00 59 02/17/17 04:00 Nasal Cannula 2.00 02/17/17 00:00 99.7 70 18 182/84 (116) 97 02/17/17 00:00 57 02/17/17 00:00 Nasal Cannula 2.00 02/16/17 20:00 Nasal Cannula 2.00 02/16/17 20:00 65 02/16/17 20:00 98.7 68 20 181/95 (123) 96 02/16/17 19:32 94 Nasal Cannula 2.00 02/16/17 16:00 97.1 61 22 167/97 (120) 92 Laboratory Tests Test 02/16/17 02:44 White Blood Count 8.1 TH/MM3 Red Blood Count 3.62 MIL/MM3 Hemoglobin 11.7 GM/DL Hematocrit 35.0 % Mean Corpuscular Volume 96.7 FL Mean Corpuscular Hemoglobin 32.2 PG Mean Corpuscular Hemoglobin Concent 33.3 % Red Cell Distribution Width 13.5 % Platelet Count 206 TH/MM3 Mean Platelet Volume 8.7 FL Laboratory Tests Test 02/16/17 13:25 02/17/17 08:12 Blood Urea Nitrogen 12 MG/DL 13 MG/DL Creatinine 1.04 MG/DL 0.99 MG/DL Random Glucose 142 MG/DL 96 MG/DL Calcium Level 8.3 MG/DL 8.7 MG/DL Sodium Level 135 MEQ/L 136 MEQ/L Potassium Level 3.3 MEQ/L 3.1 MEQ/L Chloride Level 104 MEQ/L 100 MEQ/L Carbon Dioxide Level 22.5 MEQ/L 28.6 MEQ/L Anion Gap 9 MEQ/L 7 MEQ/L Estimat Glomerular Filtration Rate 69 ML/MIN 73 ML/MIN Microbiology Date/Time Source Procedure Growth Status 02/15/17 14:29 Cerebral Spinal Fluid Lumbar Puncture Gram Stain - Final Resulted 02/15/17 14:29 Cerebral Spinal Fluid Lumbar Puncture CSF Culture - Preliminary NO GROWTH IN 48 HOURS. Resulted PHYSICAL EXAMINATION: IN GENERAL: No acute distress. HEAD, EYES, EARS, NOSE, AND THROAT: Atraumatic, extraocular movement grossly intact, pupils reactive to light. No icterus. Oropharynx mucosa moist. poor dentition. NECK: The neck is supple without adenopathy. LUNGS: Clear breath sounds, bilateral. HEART: Regular S1, S2 without murmurs, rubs or gallops. ABDOMEN: Bowel sounds are present, Soft, no tenderness. EXTREMITIES: No clubbing, cyanosis or edema. SKIN: No rash NEUROLOGIC: No gross focal findings. PSYCHIATRIC: The patient is calm and cooperative. IMPRESSION: Herpes encephalitis. Altered mental status secondary to herpes encephalitis. Mental status improved. Stage 2 kidney disease. RECOMMENDATIONS: Intravenous Acyclovir - total of 14 days. Orders will be written for home therapy or SNF. Midline or PIC for antibiotics ordered. Discussed with patient's daughter and case management. José Miguel De La O MD Feb 17, 2017 12:50
--- NOTE | 2017-02-17 13:05 | HHI.FF ---
Infusion Therapy Location of Infusion Therapy: Home Health Care IV Infusion Order Patient Information Patient Weight 94.8 kg Diagnosis: (1) Encephalitis Coded Allergies: No Known Allergies (Verified Allergy, Mild, 02/12/17) Administer Medication Acyclovir 950mg IV Q12H Stop Treatment: Mar 01, 2017 Additional Information Venous access: PICC Line Additional Instructions [x] Peripheral flush and dressing changes per protocol [x] Implanted port and central line construction superintendent: * Implanted port: 10 ml Normal Saline followed by 5 ml Heparin 100 units/ml Heparin flush after each use and monthly to maintain. [] May leave port accessed during therapy. [] May leave peripheral site accessed for duration of therapy. [x] If patient has SOB or respiratory distress, check oxygen saturation. If less than 90% or clinical signs of respiratory distress, administer oxygen at 2 L/min. via nasal cannula and notify physician. [x] Anaphylaxis/Reaction orders: * Stop infusion. * Keep IV line open with saline flush. * Notify physician. * Monitor vital signs every 15 minutes until symptoms resolve. * Check Oxygen saturation; Oxygen at 2 L/min. via nasal cannula if less than 90% or clinical signs of respiratory distress. * Administer diphenhydramine (Benadryl) 25 mg IV STAT, (unless patient has received as pre-med). May repeat once, if necessary. * Solu-Cortef 250 mg IVP over 30-60 seconds, use 100 mg vials for each dissolution. * Epinephrine (1mg/1 ml) 0.3 mg subcutaneously or IVP now with any signs of respiratory distress. * Check with physician for new additional pre-med orders if patient is re- challenged or re-treated. [x] May remove PICC line when treatment complete, after confirming with Physician. [x] If the patient is admitted to the hospital, the ED, or transferred via [facility] , complete transfer form including medication reconciliation order sheet. Laboratory Tests Additional Information BMP Q3Days while on Acyclovir. Fax results to Dr. De La O [phone]. D/C PIC line after completion of IV therapy. José Miguel De La O MD Feb 17, 2017 13:05
--- NOTE | 2017-02-17 16:47 | RADRPT ---
EXAM DATE/TIME: 02/17/2017 16:17 [facility] COMPARISON: CHEST SINGLE AP, February 12, 2017, 21:23. INDICATIONS : Post PICC line placement. MEDICAL HISTORY : Hypercholesterolemia. Hypertension. Chronic obstructive pulmonary disease. Deep vein thrombosis. Ras ia, hiatal. Kidney stones. Diabetes. SURGICAL HISTORY : Partial left knee replacement. Right knee arthroscopy. IVC filter. Hernia repair. ENCOUNTER: Initial ACUITY: 1 day PAIN SCORE: 0/10 LOCATION: Right chest FINDINGS: A single view of the chest demonstrates the lungs to be symmetrically aerated without evidence of mas s, infiltrate or effusion. The cardiomediastinal contours are unremarkable. Osseous structures are intact with multilevel degenerative spurring of the dorsal spine. Interval placement of a right upper extremity PICC line with the tip projecting over the central veno us system. CONCLUSION: 1. Interval placement of a right upper extremity PICC line with the tip projecting over the central v enous system. 2. No acute cardiopulmonary process Chato Benz MD on February 17, 2017 at 16:44 Board Certified Radiologist. This report was verified electronically.
[2017-02-17] MEDS: ZOLPIDEM TARTRATE 10 MG TAB PO SCH (20:35)
[2017-02-17] MEDS: TAMSULOSIN HCL 0.4 MG CAP PO SCH (20:35)
[2017-02-17] MEDS: POTASSIUM CHLORIDE 20 MEQ CONTROLLED RELEASE TAB PO SCH (20:35)
--- NOTE | 2017-02-17 23:18 | RADRPT ---
EXAM DATE/TIME: 02/17/2017 23:07 [facility] COMPARISON: CT BRAIN W/O CONTRAST, February 12, 2017, 21:53. INDICATIONS : Patient fell, confused. RADIATION DOSE: 38.61 CTDIvol (mGy) MEDICAL HISTORY : Cardiovascular disease. Hypertension. Chronic obstructive pulmonary disease. kidney stone SURGICAL HISTORY : hernia repair ENCOUNTER: Initial ACUITY: 1 day PAIN SCALE: 3/10 LOCATION: cranial TECHNIQUE: Multiple contiguous axial images were obtained of the head. Using automated exposure control and adj ustment of the mA and/or kV according to patient size, radiation dose was kept as low as reasonably a chievable to obtain optimal diagnostic quality images. DICOM format image data is available electro nically for review and comparison. FINDINGS: CEREBRUM: The ventricles are normal for age with moderate atrophic change again noted. Periventricular white ma tter lucencies are present consistent with proximal vessels in the change. No evidence of midline mckenzie ft, mass lesion, hemorrhage or acute infarction. No extra-axial fluid collections are seen. POSTERIOR FOSSA: The cerebellum and brainstem are intact. The 4th ventricle is midline. The cerebellopontine angle i s unremarkable. EXTRACRANIAL: The visualized portion of the orbits is intact. SKULL: The calvaria is intact. No evidence of skull fracture. CONCLUSION: 1. No acute hemorrhage or mass effect. 2. Moderate atrophic change and chronic small vessel ischemic changes. Nam Dang MD on February 17, 2017 at 23:14 Board Certified Radiologist. This report was verified electronically.
[2017-02-18] VITALS (8 sets, daily range): BP systolic 134–211; BP diastolic 61–101; PULSE 54–78; RESP 18–24; TEMP 97.5–99.2; O2SAT 93–95
[2017-02-18] MEDS ORDERED: cloNIDine HCL 0.1 MG TAB PO ONE
[2017-02-18] MEDS: HALOPERIDOL LACTATE 5 MG/ML AMP IM PRN ×2 (05:10)
[2017-02-18] MEDS: cloNIDine HCL 0.1 MG TAB PO PRN (05:10)
[2017-02-18 05:35] LABS: BICARBONATE 29.9 MEQ/L (21.0-32.0); POTASSIUM 3.6 MEQ/L (3.5-5.1)
[2017-02-18] MEDS: VERAPAMIL HCL 120 MG TAB PO SCH (07:38)
[2017-02-18] MEDS: ATENOLOL 25 MG TAB PO SCH (07:38)
[2017-02-18] MEDS: LISINOPRIL 20 MG TAB PO SCH (07:38)
[2017-02-18] MEDS: RIVAROXABAN 15 MG TAB PO SCH (07:39)
[2017-02-18] MEDS: predniSONE 20 MG TAB PO SCH (07:39)
[2017-02-18] MEDS: SODIUM CHLORIDE 0.9% FLUSH 10 ML FLUSH IV FLUSH SCH (07:39)
[2017-02-18] MEDS: FAMOTIDINE 20 MG TAB PO SCH (07:39)
[2017-02-18] MEDS: POTASSIUM CHLORIDE 20 MEQ CONTROLLED RELEASE TAB PO SCH (07:39)
[2017-02-18] MEDS: INSULIN ASPART SUPPLEMENTAL SCALE SQ SCH (07:40)
[2017-02-18] MEDS: ACYCLOVIR IV SCH (07:43)
[2017-02-18] MEDS: SODIUM CHLORIDE 0.9% IV SCH (07:43)
--- NOTE | 2017-02-18 07:57 | PD.ONC.PN ---
Subjective Subjective Remarks Patient was found on the floor this morning and confused. No LOC. No head trauma reported. He is in restraint and sleepy. He was given Haldol Daughter at the bedside. Discussed with the nurse. Objective Data Date Time Temp Pulse Resp B/P (MAP) Pulse Ox O2 Delivery O2 Flow Rate FiO2 02/18/17 06:31 58 20 209/97 (134) 93 02/18/17 04:00 99.2 62 22 211/100 (137) 94 02/18/17 04:00 56 02/18/17 04:00 96 Nasal Cannula 2.00 02/18/17 02:31 56 22 195/85 (121) 93 02/18/17 01:31 54 22 167/85 (112) 93 02/18/17 01:31 74 24 167/85 (112) 93 02/18/17 00:31 78 24 190/90 (123) 95 02/18/17 00:00 96 Nasal Cannula 2.00 02/18/17 00:00 74 02/17/17 23:20 72 26 207/95 (132) 93 02/17/17 22:25 72 28 222/98 (139) 95 02/17/17 20:00 98.6 66 24 206/104 (138) 95 02/17/17 20:00 96 Nasal Cannula 2.00 02/17/17 20:00 64 02/17/17 16:00 98.7 56 20 200/90 (126) 94 02/17/17 12:00 98.8 65 22 170/85 (113) 92 02/17/17 08:02 95 Nasal Cannula 2.00 02/17/17 08:00 96 Nasal Cannula 2.00 02/17/17 08:00 74 02/17/17 08:00 98.8 67 20 194/95 (128) 94 02/18/17 02/18/17 02/18/17 07:00 15:00 23:00 Intake Total 480 ml Balance 480 ml Result Diagram: 02/16/17 0244 02/18/17 0500 Laboratory Results Laboratory Tests Test 02/17/17 08:12 02/18/17 05:00 Blood Urea Nitrogen 13 MG/DL 17 MG/DL Creatinine 0.99 MG/DL 0.94 MG/DL Random Glucose 96 MG/DL 116 MG/DL Calcium Level 8.7 MG/DL 9.0 MG/DL Sodium Level 136 MEQ/L 136 MEQ/L Potassium Level 3.1 MEQ/L 3.6 MEQ/L Chloride Level 100 MEQ/L 101 MEQ/L Carbon Dioxide Level 28.6 MEQ/L 29.9 MEQ/L Anion Gap 7 MEQ/L 5 MEQ/L Estimat Glomerular Filtration Rate 73 ML/MIN 78 ML/MIN Culture Results Microbiology Date/Time Source Procedure Growth Status 02/15/17 14:29 Cerebral Spinal Fluid Lumbar Puncture Gram Stain - Final Resulted 02/15/17 14:29 Cerebral Spinal Fluid Lumbar Puncture CSF Culture - Preliminary NO GROWTH IN 48 HOURS. Resulted Administered Medications Medications (Trade) Dose Ordered Sig/Ty Route PRN Reason Start Time Stop Time Status Last Admin Dose Admin Sodium Chloride (NS Flush) 2 ml BID IV FLUSH 02/13/17 09:00 02/18/17 07:39 Tamsulosin HCl (Flomax) 0.4 mg HS PO 02/13/17 21:00 02/17/17 20:35 Famotidine (Pepcid) 20 mg DAILY PO 02/13/17 09:00 02/18/17 07:39 Atenolol (Tenormin) 25 mg DAILY PO 02/13/17 09:00 02/18/17 07:38 Verapamil HCl (Isoptin) 120 mg BID PO 02/13/17 09:00 02/18/17 07:38 Clonidine (Catapres) 0.1 mg Q6H PRN PO SEE LABEL COMMENTS 02/13/17 04:15 02/18/17 05:10 Insulin Aspart (NovoLOG SUPPLEMENTAL SCALE) 1 ACHS SLIDING SCALE SQ 02/13/17 08:00 02/17/17 20:36 Prednisone (Deltasone) 40 mg DAILY PO 02/13/17 12:00 02/18/17 11:59 02/18/17 07:39 Haloperidol Lactate (Haldol Inj) 2 mg Q6H PRN IM agitation 02/13/17 17:15 02/18/17 05:10 Acyclovir Sodium 950 mg/Sodium Chloride 150 ml @ 150 mls/hr Q12HR IV 02/15/17 21:00 02/18/17 07:43 Rivaroxaban (Xarelto) 15 mg BID PO 02/16/17 09:00 03/09/17 08:59 02/18/17 07:39 Zolpidem Tartrate (Ambien) 10 mg HS PO 02/16/17 21:00 02/17/17 20:35 Lisinopril (Prinivil) 20 mg DAILY PO 02/17/17 09:00 02/18/17 07:38 Potassium Chloride (KCl) 20 meq Q12HR PO 02/17/17 21:00 02/18/17 07:39 Heparin Sodium (Porcine) (Heparin Central Flush) See Protocol DAILY IV FLUSH 02/18/17 09:00 02/18/17 07:44 Objective Remarks GENERAL: Well-nourished, well-developed patient. Drowsy, arousable and answer simple questions. SKIN: Warm and dry. HEAD: Normocephalic. EYES: No scleral icterus. No injection or drainage. NECK: Supple, trachea midline. No JVD or lymphadenopathy. LYMPHATIC: No adenopathy. CARDIOVASCULAR: Regular rate and rhythm without murmurs. RESPIRATORY: Breath sounds equal bilaterally. No accessory muscle use. GASTROINTESTINAL: Abdomen soft, non-tender, nondistended. EXTREMITIES: No cyanosis, or edema. MUSCULOSKELETAL: Adequate muscle tone. NEUROLOGICAL: drowsy, lethargic Assessment/Plan Problem List: (1) Pulmonary emboli ICD Codes: I26.99 - Other pulmonary embolism without acute cor pulmonale Status: Acute Plan: --Tolerating xarelto, fell this am and Ct head no bleeding. --patient completed LP, start Xarelto 15mg po BID x 21 days and then switch to 20mg daily. F/u with PCP. --CTA noted a few small scattered thrombus in the right lung. --patient has a history of bilateral lower extremity deep venous thrombosis around 2009. At that time, he had IVC filter placement --was on coumadin for about eight months and was switched to Xarelto, which he continued for about a year and a half. He had seen a batteryman at that time and Xarelto was stopped. --now has small right pulmonary embolism. --pulmonary embolism could be emboli from clots around the IVC filter --LE U/S shows no DVT (2) Altered mental status ICD Codes: R41.82 - Altered mental status, unspecified Status: Acute Plan: --Was doing well yesterday evening. Found on the floor this am. No LOC or head trauma per nursing staff. CT head no acute changes or bleeding. Given haldol and now drowsy. --+viral encephalitis on acyclovir --came in with fever, nausea, vomiting, mild headache. -- mental status has improved. CSF GS pending. --neurology following and LP done yesterday. Assessment 76y/o male with bilateral pulmonary emboli, admitted with AMS h/o Bilateral lower extremity deep venous thrombosis in 2009. Hypertension. Chronic back pain. Depression. Diabetes, diet-controlled. Plan 1. Continue Xarelto 2. PCP to manage anticoagulation outpatient 3. Review CT head 4. Discussed with nursing staff and pt's daughter. Problem Qualifiers (1) Altered mental status: Qualified Codes: R41.0 - Disorientation, unspecified Eduardo Sanches MD Feb 18, 2017 07:56
--- NOTE | 2017-02-18 10:32 | HHI.PR ---
Subjective Remarks awake and alert, pleasant and cooperative oriented x 3, very interactive seen with daughter and charge nurse apparently last evening- fell- - got agitated head CT negative Objective Vitals Vital Signs Date Time Temp Pulse Resp B/P (MAP) Pulse Ox O2 Delivery O2 Flow Rate FiO2 02/18/17 09:12 134/61 (85) 02/18/17 08:00 97.5 57 18 206/101 (136) 95 02/18/17 06:31 58 20 209/97 (134) 93 02/18/17 04:00 99.2 62 22 211/100 (137) 94 02/18/17 04:00 56 02/18/17 04:00 96 Nasal Cannula 2.00 02/18/17 02:31 56 22 195/85 (121) 93 02/18/17 01:31 54 22 167/85 (112) 93 02/18/17 01:31 74 24 167/85 (112) 93 02/18/17 00:31 78 24 190/90 (123) 95 02/18/17 00:00 96 Nasal Cannula 2.00 02/18/17 00:00 74 02/17/17 23:20 72 26 207/95 (132) 93 02/17/17 22:25 72 28 222/98 (139) 95 02/17/17 20:00 98.6 66 24 206/104 (138) 95 02/17/17 20:00 96 Nasal Cannula 2.00 02/17/17 20:00 64 02/17/17 16:00 98.7 56 20 200/90 (126) 94 02/17/17 12:00 98.8 65 22 170/85 (113) 92 I/O 02/17/17 02/17/17 02/17/17 02/18/17 02/18/17 02/18/17 07:00 15:00 23:00 07:00 15:00 23:00 Intake Total 150 ml 240 ml 480 ml Output Total 1200 ml Balance -1200 ml 150 ml 240 ml 480 ml Intake Oral 240 ml 480 ml IV Total 150 ml Output Urine Total 1200 ml # Voids 3 2 5 # Bowel Movements 0 1 Result Diagram: 02/16/17 0244 02/18/17 0500 Imaging Last Impressions Head CT 02/17/17 0000 Signed Impressions: Service Date/Time: Friday, February 17, 2017 23:07 - CONCLUSION: 1. No acute hemorrhage or mass effect. 2. Moderate atrophic change and chronic small vessel ischemic changes. Nam Dang MD Chest X-Ray 02/17/17 0000 Signed Impressions: Service Date/Time: Friday, February 17, 2017 16:17 - CONCLUSION: 1. Interval placement of a right upper extremity PICC line with the tip projecting over the central venous system. 2. No acute cardiopulmonary process Chato Benz MD Lumbar Puncture Fluoroscopy 02/15/17 0000 Signed Impressions: Service Date/Time: Wednesday, February 15, 2017 13:55 - CONCLUSION: Uncomplicated fluoroscopically guided lumbar puncture with pressures as above. Kj Brooks MD Lower Extremity Ultrasound 02/14/17 0000 Signed Impressions: Service Date/Time: Tuesday, February 14, 2017 15:50 - CONCLUSION: No venous thrombosis of either lower extremity. Davidson Luevano MD CT Angiography 02/13/17 0000 Signed Impressions: Service Date/Time: Monday, February 13, 2017 11:58 - CONCLUSION: 1. Few small scattered right sided pulmonary emboli. 2. No infiltrate or mass. 3. Cardiomegaly coronary artery calcifications. Bruce Middleton MD Brain MRI 02/13/17 0000 Signed Impressions: Service Date/Time: Monday, February 13, 2017 12:22 - CONCLUSION: 1. Chronic ischemic small vessel vasculopathy. 2. No acute infarction. Bruce Middleton MD Objective Remarks awake and alert, oriented x 3 anicteric, pupils equally reactive no nuchal rigidity no facial asymmetry lungs clear regular rhythm abdomen-soft, nontender extremities no edema gait steady- with a walker neuro exam- non focal Procedures 02/15- LP A/P Problem List: (1) Encephalopathy ICD Code: G93.40 - Encephalopathy, unspecified Status: Acute (2) HTN (hypertension) ICD Code: I10 - Essential (primary) hypertension (3) Dehydration ICD Code: E86.0 - Dehydration (4) Hyperglycemia ICD Code: R73.9 - Hyperglycemia, unspecified (5) Leukocytosis ICD Code: D72.829 - Elevated white blood cell count, unspecified (6) Hypokalemia ICD Code: E87.6 - Hypokalemia Status: Acute (7) Respiratory distress ICD Code: R06.03 - Acute respiratory distress Assessment and Plan 76 yrs old man with: Encephalopathy: - per family near baseline today- Viral Encephalitis CT Head w/ no acute findings. No obvious source of infection, CXR w/ no acute findings, U/a negative. Urine Drug Screen negative. LP results with predominant lymphocytosis Neurology. ff ID service consulted. started On IV Acyclovir- duration of IV therapy 960 mg IV q 12 till 03/01. home PT Hallucinations visual and auditory. --resolved PE CTA reviewed shows few small scattered right sided pulmonary emboli. started on Xarelto Hematology ff Leukocytosis: Resolved Hyperglycemia: Hgb A1c pending. Sliding scale w/ Accu-Cheks. Hypokalemia: K+ 2.9 on admission s/p replacement monitor and replace as needed. recheck BMP NOW Hypertension: ; Currently on verapamil 120 mg BID, Atenolol 25mg daily Lisinorpil 20 mg daily DVT Prophylaxis: SCD/Teds CM consulted for DC plan Discussed with the daughter- nurse at bedside Increase activity Problem Qualifiers (1) HTN (hypertension): Qualified Codes: I10 - Essential (primary) hypertension Leora Burnett MD Feb 18, 2017 10:32
[2017-02-18] MEDS ORDERED: WALKER WHEELS/F1 MIS (10:35)
--- NOTE | 2017-02-18 10:37 | HHI.FF ---
Face to Face Verification Diagnosis: (1) Altered mental status (2) Encephalopathy (3) Pulmonary emboli Physical Therapy Order: Evaluate and Treat, Improve ambulation Speech Therapy Order: To Improve: Speech and communication skills, Cognitive skills Home Health Nursing Order: Medical education Signs/symptoms of disease process Nursing assessment with vital signs Home Health Aide Order: To Assist In: Bathing and personal care, soap worker and meal prep [employer] Order: To Evaluate: Living conditions/environment, Support services I have seen patient Goyo Ly on 02/18/17. My clinical findings support the need for the requested home health care services because: Ltd mobility - disease progression Deconditioned w/ increased weakness Need for psychosocial assistance I certify that my clinical findings support that this patient is homebound because: Unsafe to leave home unassisted Need for psychosocial assistance [facility] nurse to assist with viral medication IV administration- on IV Acyclovir. Leora William MD Feb 18, 2017 10:37
[2017-02-18] MEDS ORDERED: XARE20TA PO (10:42)
[2017-02-18] MEDS ORDERED: XARE15TA PO (10:42)
[2017-02-18] MEDS ORDERED: LISI-515 PO (10:42)
[2017-02-18] MEDS ORDERED: POTA20TA5 PO (10:43)
--- NOTE | 2017-02-18 10:52 | HHI.DS ---
Discharge Summary Admission Date Feb 13, 2017 at 17:20 Discharge Date: Feb 18, 2017 Admitting Diagnosis AMD, leukocytosis, hypokalemia (1) Encephalitis ICD Code: G04.90 - Encephalitis and encephalomyelitis, unspecified Diagnosis: Principal Status: Acute (2) Encephalopathy ICD Code: G93.40 - Encephalopathy, unspecified Diagnosis: Principal Status: Acute (3) Pulmonary emboli ICD Code: I26.99 - Other pulmonary embolism without acute cor pulmonale Diagnosis: Principal Status: Acute (4) HTN (hypertension) ICD Code: I10 - Essential (primary) hypertension Diagnosis: Secondary (5) Dehydration ICD Code: E86.0 - Dehydration Diagnosis: Secondary (6) Hyperglycemia ICD Code: R73.9 - Hyperglycemia, unspecified Diagnosis: Secondary (7) Leukocytosis ICD Code: D72.829 - Elevated white blood cell count, unspecified Diagnosis: Secondary (8) Hypokalemia ICD Code: E87.6 - Hypokalemia Diagnosis: Secondary Status: Acute (9) Respiratory distress ICD Code: R06.03 - Acute respiratory distress Procedures 02/15- LP Brief History - From Admission This is a 76-year-old male with PMH of HTN, Chronic Back pain, Depression, h/o DVT s/p IVC and Diet Controlled DM who was brought to the ER by Daughter secondary to AMS. Per Daughter, pt lives in an [place] on their property and is highly functional at baseline-walks, talks, drives. Today, pt had few episodes of nausea/vomiting and mild headache, but no complaints of abdominal pain, Daughter had flu-like symptoms and thought pt was having same, however mental status declined throughout the day. Also states BP has been difficult to control and has required several different BP regimens, however home BP has been 130's systolic until today when BP noted to be elevated. On arrival, BP 197/105, HR 115. WBC 12.2. K+ 2.9, s/p replacement in ER. GFR 57. UA with no UTI. Beta hydroxy 0.76. Urine Drug Screen negative. CT Head with no acute intracranial abnormalities. CXR with no acute finding. While in ER, pt w/ episode of significant agitation requiring Haldol and Risperidone, currently calm. CBC/BMP: 02/16/17 0244 02/18/17 0500 Significant Findings Laboratory Tests Test 02/15/17 14:29 02/16/17 02:44 02/16/17 05:30 02/16/17 13:25 CSF WBC (Tube 4) 388 /MM3 (0-10) CSF RBC (Tube 4) 73 /MM3 (NONE) CSF Total Protein 90.6 MG/DL (15.0-45.0) Red Blood Count 3.62 MIL/MM3 (4.50-5.90) Hemoglobin 11.7 GM/DL (13.0-17.0) Hematocrit 35.0 % (39.0-51.0) Activated Partial Thromboplast Time 58.9 SEC (24.3-30.1) Random Glucose 142 MG/DL (74-106) Calcium Level 8.3 MG/DL (8.5-10.1) Sodium Level 135 MEQ/L (136-145) Potassium Level 3.3 MEQ/L (3.5-5.1) Estimat Glomerular Filtration Rate 69 ML/MIN (>89) Test 02/17/17 08:12 02/18/17 05:00 Potassium Level 3.1 MEQ/L (3.5-5.1) Estimat Glomerular Filtration Rate 73 ML/MIN (>89) 78 ML/MIN (>89) Random Glucose 116 MG/DL (74-106) Imaging Last Impressions Head CT 02/17/17 0000 Signed Impressions: Service Date/Time: Friday, February 17, 2017 23:07 - CONCLUSION: 1. No acute hemorrhage or mass effect. 2. Moderate atrophic change and chronic small vessel ischemic changes. Nam Dang MD Chest X-Ray 02/17/17 0000 Signed Impressions: Service Date/Time: Friday, February 17, 2017 16:17 - CONCLUSION: 1. Interval placement of a right upper extremity PICC line with the tip projecting over the central venous system. 2. No acute cardiopulmonary process Chato Benz MD Lumbar Puncture Fluoroscopy 02/15/17 0000 Signed Impressions: Service Date/Time: Wednesday, February 15, 2017 13:55 - CONCLUSION: Uncomplicated fluoroscopically guided lumbar puncture with pressures as above. Kj Brooks MD Lower Extremity Ultrasound 02/14/17 0000 Signed Impressions: Service Date/Time: Tuesday, February 14, 2017 15:50 - CONCLUSION: No venous thrombosis of either lower extremity. Davidson Luevano MD CT Angiography 02/13/17 0000 Signed Impressions: Service Date/Time: Monday, February 13, 2017 11:58 - CONCLUSION: 1. Few small scattered right sided pulmonary emboli. 2. No infiltrate or mass. 3. Cardiomegaly coronary artery calcifications. Bruce Middleton MD Brain MRI 02/13/17 0000 Signed Impressions: Service Date/Time: Monday, February 13, 2017 12:22 - CONCLUSION: 1. Chronic ischemic small vessel vasculopathy. 2. No acute infarction. Bruce Middleton MD PE at Discharge awake and alert, oriented x 3 anicteric, pupils equally reactive no nuchal rigidity no facial asymmetry lungs clear regular rhythm abdomen-soft, nontender extremities no edema gait steady- with a walker neuro exam- non focal Pt update on day of discharge awake and alert, afebrile interactive and a x o looking forward to going home Hospital Course 76 yrs old man with: Viral Encephalitis - Encephalopathy: - per family near baseline today- CT Head w/ no acute findings. No obvious source of infection, CXR w/ no acute findings, U/a negative. Urine Drug Screen negative. LP results with predominant lymphocytosis Neurology. ff ID service consulted. started On IV Acyclovir- duration of IV therapy 960 mg IV q 12 till 03/01. home PT Hallucinations visual and auditory. --resolved PE CTA reviewed shows few small scattered right sided pulmonary emboli. started on Xarelto Hematology ff Leukocytosis: Resolved Hyperglycemia: Hgb A1c pending. Sliding scale w/ Accu-Cheks. Hypokalemia: K+ 2.9 on admission s/p replacement monitor and replace as needed. recheck BMP NOW Hypertension: ; Currently on verapamil 120 mg BID, Atenolol 25mg daily Lisinorpil 20 mg daily DVT Prophylaxis: SCD/Teds CM consulted for DC plan Discussed with the daughter- nurse at bedside Increase activity Pt Condition on Discharge: Stable Discharge Disposition: Disch w/ Home Health Serv Discharge Time: <= 30 minutes Discharge Instructions DIET: Follow Instructions for: Heart Healthy Diet Speech Therapy-Diet Recommends: Regular Activities you can perform: Weight Bearing as Stacy Other Activity Instructions: no driving avoid height no machineries operation Follow up Referrals: Neurology - 2 Weeks with Virgilio Jones MD PCP Follow-up - 3-5 Days with [facility]NEY New Orders: BASIC METABOLIC PROF - 1 Week New Medications: Walker with Front Wheels (Walker with Front Wheels) 1 Mis Mis EA .ROUTE DIRECTED for ambualtion, #1 0 Refills Lisinopril (Lisinopril) 20 Mg Tab 20 MG PO DAILY for HTN for 30 Days, #30 TAB Potassium Chloride Microencaps (Potassium Chloride Microencaps) 20 Meq Tab 20 MEQ PO Q12HR for elecrepl for 7 Days, #14 TAB Rivaroxaban (Xarelto) 15 Mg Tab 15 MG PO BID for PE for 20 Days, #40 TAB Rivaroxaban (Xarelto) 20 Mg Tab 20 MG PO DAILY for PE for 30 Days, #30 TAB 3 Refills Continued Medications: Atenolol (Atenolol) 25 Mg Tab 25 MG PO DAILY for Blood Pressure Management, #30 TAB Gabapentin (Gabapentin) 600 Mg Tab 600 MG PO TID, #90 TAB 0 Refills Paroxetine (Paxil) 10 Mg Tab 5 MG PO DAILY for Depression Control, #30 TAB 0 Refills Tamsulosin (Tamsulosin) 0.4 Mg Cap 0.4 MG PO HS for Manage Prostate Problems, #30 CAP 0 Refills Verapamil (Verapamil) 120 Mg Tab 120 MG PO BID, #60 TAB 0 Refills Zolpidem (Ambien) 10 Mg Tab 10 MG PO HS PRN for INSOMNIA, TAB 0 Refills Discontinued Medications: Cyclobenzaprine (Flexeril) 10 Mg Tab 10 MG PO DAILY for Muscle Spasm, #90 TAB [address] (Diclofenac Sodium DR) 75 Mg Tabdr 75 MG PO BID, #60 TAB 0 Refills Hydrocodone-Acetaminophen ([place]) 7.5-325 mg Tab 1 TAB PO BID PRN for PAIN, TAB 0 Refills Leora Burnett MD Feb 18, 2017 10:52
[2017-02-18] MEDS ORDERED: PHARMACY ORDERED LAB ONE (11:45)
[2017-02-18 19:53] LABS: VDRL CSF NON-REACTIVE (NON-REACTVE)
[2017-03-09] MEDS ORDERED: RIVAROXABAN 20 MG TAB PO SCH (09:00)
== END 2017-02-18 11:43 | disposition home health service (06) | DRG 97 ==
LOC: NEPE 20:05 → NEDA 23:11 → NEPFCDU 02-13 03:42 → OBSVTOIN 02-13 17:20 → N04B 02-13 20:05
PROVIDERS: ADMIT Internal Medicine; ATTEND Internal Medicine
PROC: 009U3ZX Drainage of Spinal Canal, Percutaneous Approach, Diagnostic (ICD-10-PCS; principal; 2017-02-15)
DX: B00.4 Herpesviral encephalitis (principal); G93.40 Encephalopathy, unspecified; I26.99 Other pulmonary embolism without acute cor pulmonale; R06.03 Acute respiratory distress; R47.01 Aphasia; E87.6 Hypokalemia; E86.0 Dehydration; E11.65 Type 2 diabetes mellitus with hyperglycemia; I12.9 Hypertensive chronic kidney disease with stage 1 through stage 4 chronic kidney disease, or unspecified chronic kidney disease; E11.22 Type 2 diabetes mellitus with diabetic chronic kidney disease; R00.0 Tachycardia, unspecified; G89.29 Other chronic pain; M54.9 Dorsalgia, unspecified; R32 Unspecified urinary incontinence; Z86.718 Personal history of other venous thrombosis and embolism; K52.9 Noninfective gastroenteritis and colitis, unspecified; Z96.652 Presence of left artificial knee joint; F32.9 Major depressive disorder, single episode, unspecified; Z87.891 Personal history of nicotine dependence; R47.1 Dysarthria and anarthria; N18.2 Chronic kidney disease, stage 2 (mild); R44.1 Visual hallucinations
CPT/HCPCS: 36600; 62270; 70450; 70553; 71010; 71275; 76937; 77003; 80048; 80053; 80202; 80307; 81001; 82010; 82140; 82607; 82805; 82945; 82948; 83036; 83735; 84157; 84443; 85025; 85027; 85610; 85652; 85730; 86140; 86592; 87070; 87205; 87498; 87529; 89051; 93005; 93970; 94620; 94640; 94664; 95819; 96360; A9579; G0378; J0133; J0290; J0360; J0696; J1200; J1630; J1642; J1644; J1815; J3370; J3475; J7030; J7040; J7512; Q9967